=== PATIENT | female | born 1955 | race African-American/Black ===

== ENCOUNTER 2017-01-13 17:00 | Emergency (ER) | payer SELFPAY ==
[~2017-01-13] VITALS: Ht 167.6 cm; Wt 81.6 kg
[~2017-01-13 17:00] MED LIST: AMLO10TA2 PO; CYCL10TA2 PO; GEMF600T3 PO; LISI1TAB7 PO; METF500T4 PO; METO50TA2 PO; OXYC1TAB7 PO; PRED-220 PO
[2017-01-13 17:14] VITALS: BP 178/78
--- NOTE | 2017-01-13 17:42 | PHYS DOC ---
Past Medical History Past Medical History: Diabetes-Type II, Hypertension Past Surgical History: Hysterectomy Additional Past Surgical Histo: Left knee, partial thyroid Additional Information: /2 ppd Alcohol Use: Occasionally Drug Use: None Adult General Chief Complaint Chief Complaint: HIP PAIN HPI HPI Patient is a 61 year old female with history of hypertension, chronic low back pain due to slipped discs, chronic right hip pain, back and sciatica pain, that got worse today. Patient denies any trauma. Denies any loss of bowel/ bladder function. Patient states this is a chronic problem. She states she has been in the ED before and she was given a muscle relaxer that helped at [facility] but does not know the name. She states she has pain pills at home as well as muscle relaxers but they're not helping as much. She would like a muscle relaxer shot. She would also like a refill of her blood pressure medicine metoprolol. She states she has an appointment with her doctor on Friday which is 5 days out. Review of Systems Review of Systems Constitutional: Denies fever or chills [] Eyes: Denies change in visual acuity, redness, or eye pain [] HENT: Denies nasal congestion or sore throat [] Musculoskeletal: low back and right hip and sciatica pain Integument: Denies rash or skin lesions [] Neurologic: Denies headache, focal weakness or sensory changes [] Endocrine: Denies polyuria or polydipsia [] Current Medications Current Medications Current Medications Medications (Trade) Dose Ordered Sig/Shira Start Time Stop Time Status Last Admin Dose Admin Diazepam (Valium) 5 mg 1X ONCE 01/13/17 18:00 01/13/17 18:01 DC Allergies Allergies Allergies Coded Allergies Type Severity Reaction Last Updated Verified lisinopril Allergy Intermediate 07/07/15 Yes codeine Adverse Reaction Intermediate Itching 07/13/15 Yes Physical Exam Physical Exam Constitutional: Well developed, well nourished, no acute distress, non-toxic appearance. [] HENT: Normocephalic, atraumatic, bilateral external ears normal, oropharynx moist, no oral exudates, nose normal. [] Eyes: PERRLA, EOMI, conjunctiva normal, no discharge. [] Skin: Warm, dry, no erythema, no rash. [] Back: Diffuse paraspinal muscle tenderness to the right sciatic joint, no midline lumbar spine tenderness, no CVA tenderness. [] Extremities: No tenderness, no cyanosis, no clubbing, ROM intact, no edema. [] Neurologic: Alert and oriented X 3, normal motor function, normal sensory function, no focal deficits noted. [] Psychologic: Affect normal, judgement normal, mood normal. [] Current Patient Data Vital Signs Vital Signs Date Time Temp Pulse Resp B/P (MAP) Pulse Ox O2 Delivery O2 Flow Rate FiO2 01/13/17 17:14 99.5 108 18 98 Room Air 99.5 EKG EKG [] Radiology/Procedures Radiology/Procedures [] Course & Med Decision Making Course & Med Decision Making Pertinent Labs and Imaging studies reviewed. (See chart for details) Patient with history of chronic back pain, chronic sciatic pain, chronic right hip pain, who presents today with exacerbation of her pain and requesting a muscle relaxer shot. Valium IM was ordered. She will continue taking her pain medicine as previously prescribed by her doctor. She requested a refill of her blood pressure medicine. Prescription for metoprolol was given for 5 days. She is to follow-up with her doctor on Friday of this week. Dragon Disclaimer [place] Disclaimer This electronic medical record was generated, in whole or in part, using a voice recognition dictation system. Departure Departure Impression: Primary Impression: Back pain with sciatica Additional Impressions: Right hip pain Medication refill Disposition: HOME, SELF-CARE Condition: STABLE Referrals: NO PCP (PCP) Follow-up with your doctor in 1-2 weeks Patient Instructions: Back Pain, Adult, Sciatica with Rehab-SportsMed Additional Instructions: You were seen for back pain with sciatica and hip pain. Follow-up with your doctor in the next 7 days. Continue taking the pain medicine and muscle relaxers as previously prescribed by your doctor. Scripts Cyclobenzaprine Hcl (CYCLOBENZAPRINE HCL) 10 Mg Tablet 1 TAB PO TID, #30 TAB Prov: ANNEMARIE NEUMANN APRN 01/13/17 Oxycodone Hcl/Acetaminophen (OXYCODONE-ACETAMINOPHEN 5-325) 1 Each Tablet 1 EACH PO PRN Q6HRS Y for PAIN, #14 TAB 0 Refills Prov: ANNEMARIE NEUMANN APRN 01/13/17 Metoprolol Tartrate (METOPROLOL TARTRATE) 50 Mg Tablet 1 TAB PO BID, #10 TAB 5 Refills Prov: ANNEMARIE NEUMANN APRN 01/13/17 Problem Qualifiers ANNEMARIE NEUMANN APRN Jan 13, 2017 17:42
[2017-01-13] MEDS ORDERED: METO50TA2 PO (17:44)
[2017-01-13] MEDS ORDERED: OXYC1TAB7 PO (18:15)
[2017-01-13] MEDS ORDERED: CYCL10TA2 PO (18:16)
[2017-01-15] MEDS ORDERED: OXYC-327 PO (17:39)
[2017-01-17] MEDS ORDERED: MAGN400T3 PO (16:02)
== END 2017-01-13 18:24 | disposition home or self-care (01) ==
LOC: ER 17:00
DX: Z76.0 Encounter for issue of repeat prescription (principal); M54.41 Lumbago with sciatica, right side; M25.551 Pain in right hip; E11.9 Type 2 diabetes mellitus without complications; I10 Essential (primary) hypertension; F17.200 Nicotine dependence, unspecified, uncomplicated; G89.29 Other chronic pain; Z88.8 Allergy status to other drugs, medicaments and biological substances; Z90.710 Acquired absence of both cervix and uterus; Z88.5 Allergy status to narcotic agent
CPT/HCPCS: 96372; 99283; J3360

== ENCOUNTER 2017-05-08 01:15 | Inpatient (IN) | payer SELFPAY ==
[~2017-05-08] VITALS: Ht 167.6 cm; Wt 84.8 kg
[~2017-05-08 01:15] MED LIST changes: +MAGN400T3 PO; +OXYC-327 PO
[2017-05-08 01:39] LABS: BASO % 1 % (0-3); EOS % 1 % (0-3); HEMATOCRIT 40.8 % (36.0-47.0); HEMOGLOBIN 13.2 g/dL (12.0-15.5); LYMPH # 1.9 x10^3/uL (1.0-4.8); LYMPH % 24 % (24-48); MEAN CORPUSCULAR HEMOGLOBIN 24 pg (25-35); MEAN CORPUSCULAR HGB CONC 32 g/dL (31-37); MEAN CORPUSCULAR VOLUME 73 fL (79-100); MONO % 8 % (0-9); NEUT % 67 % (31-73); PLATELET COUNT 329 x10^3/uL (140-400); WHITE BLOOD COUNT 7.8 x10^3/uL (4.0-11.0)
[2017-05-08 01:48] LABS: PROTHROMBIN TIME PATIENT 12.4 SEC (11.7-14.0)
[2017-05-08 01:50] LABS: CALCIUM 10.1 mg/dL (8.5-10.1); GFR 68.7; POTASSIUM 3.2 mmol/L (3.5-5.1)
[2017-05-08 01:58] LABS: ALBUMIN 3.8 g/dL (3.4-5.0); ALBUMIN/GLOBULIN RATIO 0.9 (1.0-1.7); TOTAL BILIRUBIN 0.9 mg/dL (0.2-1.0); TOTAL PROTEIN 8.1 g/dL (6.4-8.2)
[2017-05-08 02:04] LABS: CREATINE KINASE 96 U/L (26-192)
[2017-05-08 02:11] LABS: CKMB MASS < 0.5 ng/mL (0.0-3.6)
[2017-05-08] MEDS ORDERED: ONDANSETRON PF 4 MG/2 ML VIAL. IV ONE (02:15)
[2017-05-08] MEDS ORDERED: fentaNYL PF VIAL 100 MCG/2 ML VIAL IV ONE ×2 (02:15→03:30)
[2017-05-08] MEDS ORDERED: CONTRAST GIVEN MC PRN (02:30)
--- NOTE | 2017-05-08 02:36 | PHYS DOC ---
Past Medical History Past Medical History: Diabetes-Type II, Hypertension Past Surgical History: Hysterectomy Additional Past Surgical Histo: Left knee, partial thyroid Smoking: Cigarettes Alcohol Use: Occasionally Drug Use: None Adult General Chief Complaint Chief Complaint: CHEST WALL PAIN HPI HPI Patient is a 61 year old female who presents with abdominal pain. She states the pain started tonight around 1800 p.m. The pain is in her epigastric and upper abdomen. SHe has nausea and vomiting x 6 today. No blood in her stool. The pain radiates into her chest. No shortness of air. No travel. no leg pain or swelling. She is followed at the [facility] Review of Systems Review of Systems Constitutional: Denies fever or chills Eyes: Denies change in visual acuity, redness, or eye pain HENT: Denies nasal congestion or sore throat Respiratory: Denies cough or shortness of breath Cardiovascular: lower chest pain GI: POS abdominal pain, POS nausea, POS vomiting, bloody stools or diarrhea : Denies dysuria or hematuria Musculoskeletal: Denies back pain or joint pain Integument: Denies rash or skin lesions All other systems were reviewed and found to be within normal limits, except as documented in this note. Current Medications Current Medications Current Medications Medications (Trade) Dose Ordered Sig/Shira Start Time Stop Time Status Last Admin Dose Admin Famotidine (Pepcid) 20 mg 1X ONCE 05/08/17 03:30 05/08/17 03:31 05/08/17 03:03 20 MG Fentanyl Citrate (Fentanyl 2ml Vial) 50 mcg 1X ONCE 05/08/17 03:30 05/08/17 03:31 05/08/17 03:03 50 MCG Info (Do NOT chart on this entry -- for MONITORING) 1 each PRN DAILY PRN 05/08/17 02:30 05/10/17 02:29 Iohexol (Omnipaque 300 Mg/ml) 75 ml 1X ONCE 05/08/17 03:00 05/08/17 03:01 DC 05/08/17 02:44 75 ML Ondansetron HCl (Zofran) 4 mg 1X ONCE 05/08/17 02:15 05/08/17 02:17 DC 05/08/17 02:03 4 MG Allergies Allergies Allergies Coded Allergies Type Severity Reaction Last Updated Verified lisinopril Allergy Intermediate 07/07/15 Yes codeine Adverse Reaction Intermediate Itching 07/13/15 Yes Physical Exam Physical Exam Constitutional: Well developed, well nourished, no acute distress, non-toxic appearance. [] HENT: Normocephalic, atraumatic, bilateral external ears normal, oropharynx moist, no oral exudates, nose normal. [] Eyes: PERRLA, EOMI, conjunctiva normal, no discharge. [] Neck: Normal range of motion, no tenderness, supple, no stridor. [] Cardiovascular:Heart rate regular rhythm, no murmur [] Lungs & Thorax: Bilateral breath sounds clear to auscultation [] Abdomen: Bowel sounds normal, soft, no tenderness, no masses, no pulsatile masses. [] Skin: Warm, dry, no erythema, no rash. [] Back: No tenderness, no CVA tenderness. [] Extremities: No tenderness, no cyanosis, no clubbing, ROM intact, no edema. [] Neurologic: Alert and oriented X 3, normal motor function, normal sensory function, no focal deficits noted. [] Psychologic: Affect normal, judgement normal, mood normal. [] Current Patient Data Vital Signs Vital Signs Date Time Temp Pulse Resp B/P (MAP) Pulse Ox O2 Delivery O2 Flow Rate FiO2 05/08/17 02:42 76 18 175/85 (115) 97 Nasal Cannula 2.0 05/08/17 01:27 97.7 97.7 Lab Values Laboratory Tests Test 05/08/17 01:30 White Blood Count 7.8 x10^3/uL (4.0-11.0) Red Blood Count 5.60 x10^6/uL (3.50-5.40) H Hemoglobin 13.2 g/dL (12.0-15.5) Hematocrit 40.8 % (36.0-47.0) Mean Corpuscular Volume 73 fL (79-100) L Mean Corpuscular Hemoglobin 24 pg (25-35) L Mean Corpuscular Hemoglobin Concent 32 g/dL (31-37) Red Cell Distribution Width 16.0 % (11.5-14.5) H Platelet Count 329 x10^3/uL (140-400) Neutrophils (%) (Auto) 67 % (31-73) Lymphocytes (%) (Auto) 24 % (24-48) Monocytes (%) (Auto) 8 % (0-9) Eosinophils (%) (Auto) 1 % (0-3) Basophils (%) (Auto) 1 % (0-3) Neutrophils # (Auto) 5.2 x10^3uL (1.8-7.7) Lymphocytes # (Auto) 1.9 x10^3/uL (1.0-4.8) Monocytes # (Auto) 0.6 x10^3/uL (0.0-1.1) Eosinophils # (Auto) 0.1 x10^3/uL (0.0-0.7) Basophils # (Auto) 0.0 x10^3/uL (0.0-0.2) Prothrombin Time 12.4 SEC (11.7-14.0) Prothrombin Time INR 1.0 (0.8-1.1) D-Dimer (Miriam) 1.05 ug/mlFEU (0.00-0.50) H Sodium Level 142 mmol/L (136-145) Potassium Level 3.2 mmol/L (3.5-5.1) L Chloride Level 99 mmol/L (98-107) Carbon Dioxide Level 32 mmol/L (21-32) Anion Gap 11 (6-14) Blood Urea Nitrogen 21 mg/dL (7-20) H Creatinine 1.0 mg/dL (0.6-1.0) Estimated GFR (Cockcroft-Gault) 68.7 BUN/Creatinine Ratio 21 (6-20) H Glucose Level 182 mg/dL (70-99) H Calcium Level 10.1 mg/dL (8.5-10.1) Total Bilirubin 0.9 mg/dL (0.2-1.0) Aspartate Amino Transferase (AST) 320 U/L (15-37) H Alanine Aminotransferase (ALT) 158 U/L (14-59) H Alkaline Phosphatase 181 U/L (46-116) H Creatine Kinase 96 U/L (26-192) Creatine Kinase MB (Mass) < 0.5 ng/mL (0.0-3.6) Creatine Kinase MB Relative Index 0.5 % (0-4) Troponin I Quantitative < 0.017 ng/mL (0.000-0.055) VX-Diw-A-Type Natriuretic Peptide 23 pg/mL (0-124) Total Protein 8.1 g/dL (6.4-8.2) Albumin 3.8 g/dL (3.4-5.0) Albumin/Globulin Ratio 0.9 (1.0-1.7) L Lipase 157 U/L (73-393) Laboratory Tests 05/08/17 01:30 Laboratory Tests 05/08/17 01:30 EKG EKG EKG interpreted by myself at 0124 AM is normal sinus rhythm rate of 77, leftward axis. Nonspecific ST changes. No ST elevation. No change compared to EKG dated June 2015. Radiology/Procedures Radiology/Procedures [facility] [address] [place] [address] IMAGING REPORT Signed PATIENT: CANDY CROUCH ACCOUNT: [id number] : 1955 LOCATION: ER AGE: 61 SEX: F EXAM STATUS: REG ER ORD. PHYSICIAN: HA SMITH MD REASON: R/O PE; RUQ pain w elev LFT PROCEDURE: CT CHEST ABD PELVIS W/CONTRAST INDICATION: Chest and abdomen pain COMPARISON: None. TECHNIQUE: Axial CT images obtained through the chest, abdomen and pelvis with intravenous contrast. Three-dimensional images processed of chest per angiogram protocol.. One or more of the following individualized dose reduction techniques were utilized for this examination: 1. Automated exposure control; 2. Adjustment of the mA and/or kV according to patient size; 3. Use of iterative reconstruction technique. FINDINGS: Chest: Dependent airspace opacities. No evidence of pneumothorax. Mild hernia. Left lobe of thyroid nodules suspected. Calcified lymph nodes in the mediastinum, could be sequela of old granulomatous disease. Motion obscures large portions of ascending thoracic aorta but no definite aneurysm in visualized portions. Degenerative changes of the spine. Pleural thickening or pleural effusions near right upper lung measuring up to about 11 mm in thickness. No central pulmonary embolus but limited peripherally secondary to motion. Some suspected thickening of esophageal wall. Abdomen and pelvis: Moderate atherosclerotic disease of the abdominal aorta. Low-attenuation of liver. No definite peripancreatic edema. There are some calcified granulomas of the spleen. No left-sided hydronephrosis. No right-sided hydronephrosis. Urinary bladder is partially distended. Colonic diverticulosis. No definite periappendiceal inflammation. Small fat-containing umbilical hernia. No dilated loops of bowel to suggest obstruction. Degenerative changes spine. This includes multiple disc protrusions with central canal stenosis. IMPRESSION: No embolus in main, right main or left main pulmonary artery but the peripheral vessels are obscured by patient motion. Mild dependent opacities within the lungs. Most likely causes atelectasis unless there is high clinical concern for infiltrate. No evidence of bowel obstruction or appendicitis. Low attenuation of the liver. Nonspecific but frequently secondary to fatty infiltration. There is some wall thickening of the esophagus with a hiatal hernia. If there are symptoms within the region causes such as esophagitis not excluded. Suspected thyroid nodule. If more complete characterization is desired nonemergent ultrasound could better evaluate. Small right-sided pleural effusion versus pleural thickening near right lung apex. Electronically signed by: Kenyon Wilkinson MD (05/08/2017 3:16 AM) [facility] DICTATED and SIGNED BY: KENYON WILKINSON MD DATE: 05/08/17251 CC: HA SMITH MD; NO PCP ~ Course & Med Decision Making Course & Med Decision Making Evaluated patient upon arrival. IV fluids established. Her pain does appear to be more right upper quadrant. Could be biliary colic. Could be reflux, pancreatitis. However she has risk factors for cardiac disease so we'll proceed with cardiac evaluation as well. Given pain medication and Zofran. We'll check d -dimer. D-dimer was elevated. A CT chest for rule out PE and abdomen pelvis. At 0325 am ; CT results unremarkable (motion limiting study and thyroid nodule noted). At 0330 am: Patient still with abdominal pain RUQ and nausea. Differential diagnosis for chest pain includes but is not limited to: Pericarditis, myocarditis, endocarditis, pneumothorax, pneumonia, aortic dissection, esophageal spasm, esophagitis, peptic ulcer disease, acute coronary syndrome, mediastinitis, Boerhaave syndrome, musculoskeletal chest wall pain, costochondritis, intercostal strain, rib fracture, pulmonary contusion, pneumonitis, pleural effusion, pericardial effusion, pericardial tamponode, and pleurisy. MACE Scoring: History: Highly suspicious (2 points); Moderately suspicious (1 point). Slightly suspicious (0 point). EKG: ST segment depression (2 points). Nonspecific repolarization disturbance ( 1 point). normal (0 point) Age: Greater than 65 (2 points), 65-45 (1 point); less than 45 years old (0 points). Risk factors:> 3 risk factors (2 points), 1-2 risk factors (one point), no risk factors (0 point). Troponin: > 2 times normal (2 points), 1-2 times normal (1 point) normal limits (0 point) Total score: __4____ Score % pts MACE/n MACE Policy 0-3: 32% 1.9% 0.05% Discharge 4-6: 51% 413/3136 13% 1.3% Observation Risk management 7-10: 17% 518/1045 50% 2.8% Observation Treatment, CAGb SOLEDAD score for NSTEMI: Age 65: No=0; Yes=1 3 CAD risk factors: Family history of CAD, hypertension, hypercholesterolemia, diabetes, family history of CAD, or current smoker: No=0; Yes=1 Known CAD (stenosis 50%: No=0; Yes=1 ASA use in past 7 days: No=0; Yes=1 Severe angina ( 2 episodes in 24 hrs): No=0; Yes=[address] changes 0.5m: No=0; Yes=1 Positive cardiac marker: No=0; Yes=1 Score:1 PERC RULE Criteria: Age < than 50 years-NO Heart rate < 100 Oxygen saturation > 95% No hemoptysis No estrogen use No prior DVT or PE No unilateral leg swelling No surgery or trauma requiring hospitalization within the prior 4 weeks PERC rule not satisfied Dragon Disclaimer Dragon Disclaimer This electronic medical record was generated, in whole or in part, using a voice recognition dictation system. Departure Departure Impression: Primary Impression: Abdominal pain Additional Impression: Nausea and vomiting Disposition: 09 ADMITTED INPATIENT Admitting Physician: Jeremias Mejía Condition: CRITICAL Referrals: NO PCP (PCP) Problem Qualifiers Primary Impression: Abdominal pain Abdominal location: right upper quadrant Qualified Codes: R10.11 - Right upper quadrant pain Additional Impression: Nausea and vomiting Vomiting type: unspecified Vomiting Intractability: unspecified Qualified Codes: R11.2 - Nausea with vomiting, unspecified HA SMITH MD May 08, 2017 02:36
[2017-05-08] MEDS ORDERED: IOHEXOL 300 MG/ML 100ML VIAL. IV ONE (03:00)
--- NOTE | 2017-05-08 03:19 | RAD ---
INDICATION: Chest and abdomen pain COMPARISON: None. TECHNIQUE: Axial CT images obtained through the chest, abdomen and pelvis with intravenous contrast. Three-dimensional images processed of chest per angiogram protocol.. One or more of the following individualized dose reduction techniques were utilized for this examination: 1. Automated exposure control; 2. Adjustment of the mA and/or kV according to patient size; 3. Use of iterative reconstruction technique. FINDINGS: Chest: Dependent airspace opacities. No evidence of pneumothorax. Mild hernia. Left lobe of thyroid nodules suspected. Calcified lymph nodes in the mediastinum, could be sequela of old granulomatous disease. Motion obscures large portions of ascending thoracic aorta but no definite aneurysm in visualized portions. Degenerative changes of the spine. Pleural thickening or pleural effusions near right upper lung measuring up to about 11 mm in thickness. No central pulmonary embolus but limited peripherally secondary to motion. Some suspected thickening of esophageal wall. Abdomen and pelvis: Moderate atherosclerotic disease of the abdominal aorta. Low-attenuation of liver. No definite peripancreatic edema. There are some calcified granulomas of the spleen. No left-sided hydronephrosis. No right-sided hydronephrosis. Urinary bladder is partially distended. Colonic diverticulosis. No definite periappendiceal inflammation. Small fat-containing umbilical hernia. No dilated loops of bowel to suggest obstruction. Degenerative changes spine. This includes multiple disc protrusions with central canal stenosis. IMPRESSION: No embolus in main, right main or left main pulmonary artery but the peripheral vessels are obscured by patient motion. Mild dependent opacities within the lungs. Most likely causes atelectasis unless there is high clinical concern for infiltrate. No evidence of bowel obstruction or appendicitis. Low attenuation of the liver. Nonspecific but frequently secondary to fatty infiltration. There is some wall thickening of the esophagus with a hiatal hernia. If there are symptoms within the region causes such as esophagitis not excluded. Suspected thyroid nodule. If more complete characterization is desired nonemergent ultrasound could better evaluate. Small right-sided pleural effusion versus pleural thickening near right lung apex. Electronically signed by: Heraclio Wilkinson MD (05/08/2017 3:16 AM) [facility]
[2017-05-08] MEDS ORDERED: FAMOTIDINE 20 MG/2 ML VIAL IVP ONE (03:30)
[2017-05-08] MEDS ORDERED: MORPHINE SULFATE 4 MG/ML DISP.SYRIN. IV PRN (04:15)
[2017-05-08] MEDS ORDERED: ONDANSETRON PF 4 MG/2 ML VIAL. IV PRN (04:15)
[2017-05-08 04:39] VITALS: BP 139/73
[2017-05-08] MEDS ORDERED: HYDR25TA9 PO (05:12)
[2017-05-08] MEDS ORDERED: POTA20TA4 PO (05:12)
--- NOTE | 2017-05-08 06:43 | EKG ---
[facility] [address] [place] [address] Test Date: 2017-05-08 Test Time: 01:24:13 Pat Name: CANDY CROUCH Department: Room: 576 1 Gender: F Contract Preparer: : 1955 Requested By: WILBER LIMA Order Number: [id number] Reading MD: Bautista Jones MD Measurements Intervals [place] Rate: 77 P: 53 [place]: 156 QRS: -22 QRSD: 84 T: 50 QT: 408 QTc: 464 Interpretive Statements SINUS RHYTHM LEFTWARD AXIS CONSIDER LEFT VENTRICULAR HYPERTROPHY CONSISTENT WITH ANTEROSEPTAL INFARCT PROBABLY OLD Electronically Signed On 05-12-2017 10:39:16 [employer] by Bautista Jones MD
[2017-05-08 07:00] VITALS: BP 128/78
[2017-05-08] MEDS ORDERED: CYCLOBENZAPRINE 10 MG TABLET. PO PRN (10:15)
[2017-05-08] MEDS ORDERED: hydrALAZINE 20 MG/ML VIAL. IVP PRN (10:15)
[2017-05-08] MEDS ORDERED: DEXTROSE 50% 25 GM / 50ML DISP.SYRIN. IV PRN (10:15)
[2017-05-08] MEDS ORDERED: MORPHINE SULFATE 2 MG/ML DISP.SYRIN. IV PRN (10:15)
[2017-05-08] MEDS: GEMFIBROZIL 600 MG TABLET. PO SCH ×2 (10:54→21:35)
[2017-05-08] MEDS: METOPROLOL TART IMMED RELEASE 50 MG TABLET. PO SCH ×2 (10:56→21:36)
[2017-05-08] MEDS: amLODIPine BESYLATE 10 MG TABLET PO SCH (10:57)
[2017-05-08 11:00] VITALS: BP 125/62
[2017-05-08] MEDS ORDERED: PANTOPRAZOLE IV PUSH 40 MG VIAL. IVP SCH (11:00)
[2017-05-08] MEDS: INSULIN ASPART 300 UNITS/3 ML INSULN.PEN SQ SCH ×2 (11:03→16:45)
[2017-05-08] MEDS: NICOTINE 14MG PATCH. TD PRN (11:20)
--- NOTE | 2017-05-08 12:49 | PDOC2 ---
GI CONSULT Reason For Consult: Possible hematemesis, abd pain, n/v HPI: HPI: 61 y/o female admitted through ER. At 2:00 p.m. started feeling bloated. No precipitating events including sick contacts, new medication, travel, bad food. Tried to rest, couldn't get comfortable. Tried having a bowel movement, passed small amount of stool. Tried eating ice chips and drinking some fluids, started feeling lightheaded and vomiting at 10:00 p.m.. Emesis was bilious and red (but didn't eat anything red). In ER, Hgb 13.2 w/ normal plt and INR, D- dimer elevated, BUN 21, Cr 1, bili 0.9, AST 320, ALT 158, Alk Phos 181. CT chest/A/P w/ no PE, lung opacities, probably fatty liver, wall thickening of esophagus w/ hiatal hernia, probable thyroid nodule, and small right pleural effusion. Has tolerated clears today w/o recurrent n/v or bleeding. Abd pain is better. On IV PPI. Had GERD years ago, no longer bothersome because she avoids spicy food. No dysphagia or weight loss. No diarrhea, constipation, hematochezia, melena. No previous EGD or colonoscopy. Takes Advil off and on, not daily. No gallbladder , liver, or pancreas history. PMH: PMH: ND, HTN, HLD, partial hysterectomy, left knee surgery (as a child), partial thyroidectomy for "cyst" (denies cancer) FH: Family History: Cancer (ovarian), DM, Hypertension, Other (father had cirrhosis /alcoholism) Social History: Smoke: <1 pack per day ALCOHOL: occassional Drugs: None ROS: GEN: Denies fevers, chills, sweats HEENT: Denies blurred vision, sore throat CV: Denies chest pain RESP: Denies shortness of air, cough GI: Per HPI : Denies hematuria, dysuria ENDO: Denies weight changes NEURO: Denies confusion, dizziness MSK: Denies weakness, joint pain/swelling SKIN: Denies jaundice, pruritus Vitals: Vitals: Vital Signs Date Time Temp Pulse Resp B/P (MAP) Pulse Ox O2 Delivery O2 Flow Rate FiO2 05/08/17 11:41 16 Room Air 05/08/17 11:00 97.9 64 125/62 (83) 93 97.9 05/08/17 08:00 2.0 Labs: Labs: Laboratory Tests Test 05/08/17 01:30 05/08/17 08:34 05/08/17 11:02 White Blood Count 7.8 x10^3/uL (4.0-11.0) Red Blood Count 5.60 x10^6/uL (3.50-5.40) Hemoglobin 13.2 g/dL (12.0-15.5) Hematocrit 40.8 % (36.0-47.0) Mean Corpuscular Volume 73 fL (79-100) Mean Corpuscular Hemoglobin 24 pg (25-35) Mean Corpuscular Hemoglobin Concent 32 g/dL (31-37) Red Cell Distribution Width 16.0 % (11.5-14.5) Platelet Count 329 x10^3/uL (140-400) Neutrophils (%) (Auto) 67 % (31-73) Lymphocytes (%) (Auto) 24 % (24-48) Monocytes (%) (Auto) 8 % (0-9) Eosinophils (%) (Auto) 1 % (0-3) Basophils (%) (Auto) 1 % (0-3) Neutrophils # (Auto) 5.2 x10^3uL (1.8-7.7) Lymphocytes # (Auto) 1.9 x10^3/uL (1.0-4.8) Monocytes # (Auto) 0.6 x10^3/uL (0.0-1.1) Eosinophils # (Auto) 0.1 x10^3/uL (0.0-0.7) Basophils # (Auto) 0.0 x10^3/uL (0.0-0.2) Prothrombin Time 12.4 SEC (11.7-14.0) Prothromb Time International Ratio 1.0 (0.8-1.1) D-Dimer (Miriam) 1.05 ug/mlFEU (0.00-0.50) Sodium Level 142 mmol/L (136-145) Potassium Level 3.2 mmol/L (3.5-5.1) Chloride Level 99 mmol/L (98-107) Carbon Dioxide Level 32 mmol/L (21-32) Anion Gap 11 (6-14) Blood Urea Nitrogen 21 mg/dL (7-20) Creatinine 1.0 mg/dL (0.6-1.0) Estimated GFR (Cockcroft-Gault) 68.7 BUN/Creatinine Ratio 21 (6-20) Glucose Level 182 mg/dL (70-99) Calcium Level 10.1 mg/dL (8.5-10.1) Total Bilirubin 0.9 mg/dL (0.2-1.0) Aspartate Amino Transf (AST/SGOT) 320 U/L (15-37) Alanine Aminotransferase (ALT/SGPT) 158 U/L (14-59) Alkaline Phosphatase 181 U/L (46-116) Creatine Kinase 96 U/L (26-192) Creatine Kinase MB (Mass) < 0.5 ng/mL (0.0-3.6) Creatine Kinase MB Relative Index 0.5 % (0-4) Troponin I Quantitative < 0.017 ng/mL (0.000-0.055) [id number]-Type Natriuretic Peptide 23 pg/mL (0-124) Total Protein 8.1 g/dL (6.4-8.2) Albumin 3.8 g/dL (3.4-5.0) Albumin/Globulin Ratio 0.9 (1.0-1.7) Lipase 157 U/L (73-393) Glucose (Fingerstick) 130 mg/dL (70-99) 121 mg/dL (70-99) Allergies: Coded Allergies: lisinopril (Verified Allergy, Intermediate, 07/07/15) codeine (Verified Adverse Reaction, Intermediate, Itching, 07/13/15) Medications: Current Medications Medications (Trade) Dose Ordered Sig/Shira Route PRN Reason Start Time Stop Time Status Last Admin Dose Admin Ondansetron HCl (Zofran) 4 mg 1X ONCE IV 05/08/17 02:15 05/08/17 02:17 DC 05/08/17 02:03 Fentanyl Citrate (Fentanyl 2ml Vial) 50 mcg 1X ONCE IV 05/08/17 02:15 05/08/17 02:17 DC 05/08/17 02:03 Iohexol (Omnipaque 300 Mg/ml) 75 ml 1X ONCE IV 05/08/17 03:00 05/08/17 03:01 DC 05/08/17 02:44 Famotidine (Pepcid) 20 mg 1X ONCE IVP 05/08/17 03:30 05/08/17 03:31 DC 05/08/17 03:03 Fentanyl Citrate (Fentanyl 2ml Vial) 50 mcg 1X ONCE IV 05/08/17 03:30 05/08/17 03:31 DC 05/08/17 03:03 Morphine Sulfate 2 mg PRN Q2HR PRN IV SEVERE PAIN 05/08/17 04:15 05/09/17 04:14 05/08/17 11:11 Amlodipine Besylate (Norvasc) 10 mg DAILY PO 05/08/17 11:00 05/08/17 10:57 Gemfibrozil (Lopid) 600 mg BID PO 05/08/17 11:00 05/08/17 10:54 Metoprolol Tartrate (Lopressor) 50 mg BID PO 05/08/17 11:00 05/08/17 10:56 Pantoprazole Sodium (Protonix Vial) 40 mg BID IVP 05/08/17 11:00 05/08/17 10:54 Nicotine (Nicoderm Cq 14mg) 1 patch PRN DAILY PRN TD SMOKING CESSATION 05/08/17 10:30 05/08/17 11:20 Imaging: Imaging: Chest/A/P CT Chest: Dependent airspace opacities. No evidence of pneumothorax. Mild hernia. Left lobe of thyroid nodules suspected. Calcified lymph nodes in the mediastinum, could be sequela of old granulomatous disease. Motion obscures large portions of ascending thoracic aorta but no definite aneurysm in visualized portions. Degenerative changes of the spine. Pleural thickening or pleural effusions near right upper lung measuring up to about 11 mm in thickness. No central pulmonary embolus but limited peripherally secondary to motion. Some suspected thickening of esophageal wall. Abdomen and pelvis: Moderate atherosclerotic disease of the abdominal aorta. Low-attenuation of liver. No definite peripancreatic edema. There are some calcified granulomas of the spleen. No left-sided hydronephrosis. No right-sided hydronephrosis. Urinary bladder is partially distended. Colonic diverticulosis. No definite periappendiceal inflammation. Small fat-containing umbilical hernia. No dilated loops of bowel to suggest obstruction. Degenerative changes spine. This includes multiple disc protrusions with central canal stenosis. IMPRESSION: No embolus in main, right main or left main pulmonary artery but the peripheral vessels are obscured by patient motion. Mild dependent opacities within the lungs. Most likely causes atelectasis unless there is high clinical concern for infiltrate. No evidence of bowel obstruction or appendicitis. Low attenuation of the liver. Nonspecific but frequently secondary to fatty infiltration. There is some wall thickening of the esophagus with a hiatal hernia. If there are symptoms within the region causes such as esophagitis not excluded. Suspected thyroid nodule. If more complete characterization is desired nonemergent ultrasound could better evaluate. Small right-sided pleural effusion versus pleural thickening near right lung apex. PE: GEN: NAD HEENT: Atraumatic, PERRL LUNGS: CTAB HEART: RRR ABD: NABS, S/ND, upper abd tenderness EXTREMITY: No edema SKIN: No rashes, no jaundice NEURO/PSYCH: A & O 3 A/P: A/P: N/v, possible hematemesis, abd pain/bloating -acute onset yesterday -h/o GERD long ago, no longer bothersome/treated -NSAID use, not daily -wall thickening of esophagus and hiatal hernia on CT -normal Hgb, BUN 21 Abnormal LFTs -possible fatty liver on CT CRC screen -no previous colonoscopy Thyroid nodule -per primary -- Check abd US, Hepatitis panel, EBV, CMV. ADAT, change to PO PPI. Outpt EGD and colonoscopy. JOSIE ANGELES May 08, 2017 12:49
[2017-05-08] MEDS: PANTOPRAZOLE 40 MG TABLET.DR. PO SCH (12:55)
--- NOTE | 2017-05-08 12:57 | PDOC1 ---
History and Physical Date of Admission Date of Admission 05/07/17 Identification/Chief Complaint Chief Complaint abd pain, NV Problems: Source Source: Chart review, Patient History of Present Illness History of Present Illness HPI HPI Patient is a 61 year old female who presents with abdominal pain AND NV from yesterday. Pt said never had it before. She ate some burger , denies poor quality of burger tho, then started to have epigastric abd pain in the evening, later has N/V multiple times, said possible bloody vomiting. The abd pain is sharp, 7/10, radiating around left rib cage. BM normal. denies fever, chlls, cough, sob. never had EGD, colonoscopy, takes alleve every other day for back pain. She is followed at the [facility] Past Medical History Cardiovascular: HTN Endocrine: Diabetes Past Surgical History Past Surgical History: Hysterectomy, Other Family History Family History: Family History Unknown Social History Smoke: <1 pack per day ALCOHOL: social Drugs: None Current Problem List Problem List Problems Medical Problems: (1) Abdominal pain Status: Acute (2) Nausea and vomiting Status: Acute Current Medications Current Medications Current Medications Medications (Trade) Dose Ordered Sig/Shira Start Time Stop Time Status Last Admin Dose Admin Acetaminophen (Tylenol) 650 mg PRN Q6HRS PRN 05/08/17 10:15 Amlodipine Besylate (Norvasc) 10 mg DAILY 05/08/17 11:00 05/08/17 10:57 10 MG Cyclobenzaprine HCl (Flexeril) 10 mg PRN TID PRN 05/08/17 10:15 Dextrose (Dextrose 50%-Water Syringe) 12.5 gm PRN Q15MIN PRN 05/08/17 10:15 Docusate Sodium (Colace) 100 mg PRN DAILY PRN 05/08/17 10:15 Famotidine (Pepcid) 20 mg 1X ONCE 05/08/17 03:30 05/08/17 03:31 DC 05/08/17 03:03 20 MG Fentanyl Citrate (Fentanyl 2ml Vial) 50 mcg 1X ONCE 05/08/17 03:30 05/08/17 03:31 DC 05/08/17 03:03 50 MCG Gemfibrozil (Lopid) 600 mg BID 05/08/17 11:00 05/08/17 10:54 600 MG Hydralazine HCl (Apresoline Inj) 10 mg PRN Q4HRS PRN 05/08/17 10:15 Info (Do NOT chart on this entry -- for MONITORING) 1 each PRN DAILY PRN 05/08/17 02:30 05/10/17 02:29 Insulin Aspart (NovoLOG) 0-9 UNITS TIDWMEALS 05/08/17 12:00 Iohexol (Omnipaque 300 Mg/ml) 75 ml 1X ONCE 05/08/17 03:00 05/08/17 03:01 DC 05/08/17 02:44 75 ML Metformin HCl (Glucophage) 500 mg BIDWMEALS 05/10/17 08:00 Metoprolol Tartrate (Lopressor) 50 mg BID 05/08/17 11:00 05/08/17 10:56 50 MG Morphine Sulfate 2 mg PRN Q2HR PRN 05/08/17 10:30 Nicotine (Nicoderm Cq 14mg) 1 patch PRN DAILY PRN 05/08/17 10:30 05/08/17 11:20 1 PATCH Ondansetron HCl (Zofran) 4 mg PRN Q6HRS PRN 05/08/17 10:15 Oxycodone/ Acetaminophen (Percocet 5/325) 1 tab PRN Q6HRS PRN 05/08/17 10:15 Pantoprazole Sodium (Protonix Vial) 40 mg BID 05/08/17 11:00 05/08/17 10:54 40 MG Tramadol HCl (Ultram) 50 mg PRN Q6HRS PRN 05/08/17 10:15 Allergies Allergies Allergies Coded Allergies Type Severity Reaction Last Updated Verified lisinopril Allergy Intermediate 07/07/15 Yes codeine Adverse Reaction Intermediate Itching 07/13/15 Yes ROS Review of System CONSTITUTIONAL: No fever or chills EYES: No recent changes SKIN: No rash or itching CARDIOVASCULAR: No chest pain, syncope, palpitations, or edema RESPIRATORY: No SOB or cough GASTROINTESTINAL: No nausea, vomiting or abdominal pain NEUROLOGICAL: No headaches or weakness ENDOCRINE: No cold or heat intolerance GENITOURINARY: No urgency or frequency of urination MUSCULOSKELETAL: No back pain or joint pain LYMPHATICS: No enlarged lymph nodes PSYCHIATRIC: No anxiety or depression Physical Exam Physical Exam GEN.: No apparent distress. Alert and oriented. HEENT: Head is normocephalic, atraumatic NECK: Supple. LUNGS: Clear to auscultation. HEART: RRR, S1, S2 present. Peripheral pulses intact ABDOMEN: Soft, Positive bowel sounds. epigastric area moderate tenderness. no guarding or rebound. EXTREMITIES: Without any cyanosis. NEUROLOGIC: Normal speech, normal tone PSYCHIATRIC: Normal affect, normal mood. SKIN: No ulcerations Vitals Vitals Vital Signs Date Time Temp Pulse Resp B/P (MAP) Pulse Ox O2 Delivery O2 Flow Rate FiO2 05/08/17 11:41 16 Room Air 05/08/17 11:00 97.9 64 125/62 (83) 93 97.9 05/08/17 08:00 2.0 Labs Labs Laboratory Tests Test 05/08/17 01:30 05/08/17 08:34 05/08/17 11:02 White Blood Count 7.8 x10^3/uL (4.0-11.0) Red Blood Count 5.60 x10^6/uL (3.50-5.40) Hemoglobin 13.2 g/dL (12.0-15.5) Hematocrit 40.8 % (36.0-47.0) Mean Corpuscular Volume 73 fL (79-100) Mean Corpuscular Hemoglobin 24 pg (25-35) Mean Corpuscular Hemoglobin Concent 32 g/dL (31-37) Red Cell Distribution Width 16.0 % (11.5-14.5) Platelet Count 329 x10^3/uL (140-400) Neutrophils (%) (Auto) 67 % (31-73) Lymphocytes (%) (Auto) 24 % (24-48) Monocytes (%) (Auto) 8 % (0-9) Eosinophils (%) (Auto) 1 % (0-3) Basophils (%) (Auto) 1 % (0-3) Neutrophils # (Auto) 5.2 x10^3uL (1.8-7.7) Lymphocytes # (Auto) 1.9 x10^3/uL (1.0-4.8) Monocytes # (Auto) 0.6 x10^3/uL (0.0-1.1) Eosinophils # (Auto) 0.1 x10^3/uL (0.0-0.7) Basophils # (Auto) 0.0 x10^3/uL (0.0-0.2) Prothrombin Time 12.4 SEC (11.7-14.0) Prothromb Time International Ratio 1.0 (0.8-1.1) D-Dimer (Miriam) 1.05 ug/mlFEU (0.00-0.50) Sodium Level 142 mmol/L (136-145) Potassium Level 3.2 mmol/L (3.5-5.1) Chloride Level 99 mmol/L (98-107) Carbon Dioxide Level 32 mmol/L (21-32) Anion Gap 11 (6-14) Blood Urea Nitrogen 21 mg/dL (7-20) Creatinine 1.0 mg/dL (0.6-1.0) Estimated GFR (Cockcroft-Gault) 68.7 BUN/Creatinine Ratio 21 (6-20) Glucose Level 182 mg/dL (70-99) Calcium Level 10.1 mg/dL (8.5-10.1) Total Bilirubin 0.9 mg/dL (0.2-1.0) Aspartate Amino Transf (AST/SGOT) 320 U/L (15-37) Alanine Aminotransferase (ALT/SGPT) 158 U/L (14-59) Alkaline Phosphatase 181 U/L (46-116) Creatine Kinase 96 U/L (26-192) Creatine Kinase MB (Mass) < 0.5 ng/mL (0.0-3.6) Creatine Kinase MB Relative Index 0.5 % (0-4) Troponin I Quantitative < 0.017 ng/mL (0.000-0.055) VO-[id number]-[id number]-Type Natriuretic Peptide 23 pg/mL (0-124) Total Protein 8.1 g/dL (6.4-8.2) Albumin 3.8 g/dL (3.4-5.0) Albumin/Globulin Ratio 0.9 (1.0-1.7) Lipase 157 U/L (73-393) Glucose (Fingerstick) 130 mg/dL (70-99) 121 mg/dL (70-99) Laboratory Tests Test 05/08/17 01:30 05/08/17 08:34 05/08/17 11:02 White Blood Count 7.8 x10^3/uL (4.0-11.0) Red Blood Count 5.60 x10^6/uL (3.50-5.40) Hemoglobin 13.2 g/dL (12.0-15.5) Hematocrit 40.8 % (36.0-47.0) Mean Corpuscular Volume 73 fL (79-100) Mean Corpuscular Hemoglobin 24 pg (25-35) Mean Corpuscular Hemoglobin Concent 32 g/dL (31-37) Red Cell Distribution Width 16.0 % (11.5-14.5) Platelet Count 329 x10^3/uL (140-400) Neutrophils (%) (Auto) 67 % (31-73) Lymphocytes (%) (Auto) 24 % (24-48) Monocytes (%) (Auto) 8 % (0-9) Eosinophils (%) (Auto) 1 % (0-3) Basophils (%) (Auto) 1 % (0-3) Neutrophils # (Auto) 5.2 x10^3uL (1.8-7.7) Lymphocytes # (Auto) 1.9 x10^3/uL (1.0-4.8) Monocytes # (Auto) 0.6 x10^3/uL (0.0-1.1) Eosinophils # (Auto) 0.1 x10^3/uL (0.0-0.7) Basophils # (Auto) 0.0 x10^3/uL (0.0-0.2) Prothrombin Time 12.4 SEC (11.7-14.0) Prothromb Time International Ratio 1.0 (0.8-1.1) D-Dimer (Miriam) 1.05 ug/mlFEU (0.00-0.50) Sodium Level 142 mmol/L (136-145) Potassium Level 3.2 mmol/L (3.5-5.1) Chloride Level 99 mmol/L (98-107) Carbon Dioxide Level 32 mmol/L (21-32) Anion Gap 11 (6-14) Blood Urea Nitrogen 21 mg/dL (7-20) Creatinine 1.0 mg/dL (0.6-1.0) Estimated GFR (Cockcroft-Gault) 68.7 BUN/Creatinine Ratio 21 (6-20) Glucose Level 182 mg/dL (70-99) Calcium Level 10.1 mg/dL (8.5-10.1) Total Bilirubin 0.9 mg/dL (0.2-1.0) Aspartate Amino Transf (AST/SGOT) 320 U/L (15-37) Alanine Aminotransferase (ALT/SGPT) 158 U/L (14-59) Alkaline Phosphatase 181 U/L (46-116) Creatine Kinase 96 U/L (26-192) Creatine Kinase MB (Mass) < 0.5 ng/mL (0.0-3.6) Creatine Kinase MB Relative Index 0.5 % (0-4) Troponin I Quantitative < 0.017 ng/mL (0.000-0.055) GU-Xvy-G-Type Natriuretic Peptide 23 pg/mL (0-124) Total Protein 8.1 g/dL (6.4-8.2) Albumin 3.8 g/dL (3.4-5.0) Albumin/Globulin Ratio 0.9 (1.0-1.7) Lipase 157 U/L (73-393) Glucose (Fingerstick) 130 mg/dL (70-99) 121 mg/dL (70-99) VTE Prophylaxis Ordered VTE Prophylaxis Devices: Yes VTE Pharmacological Prophylaxi: No Assessment/Plan Assessment/Plan abd pain with N/V, 2/2 gastritis or ulcer likely with NSAIDS Taken possible hematemesis dm2 htn tobaccoism hypokalemia elevated transaminatis, ADAIR likely plan; gi consult drug tox check tsh, hepatitis panel, CMV, EBV cont most home meds, SSI clear liquid diet protonix bid pain control, allergic to codeine, but ok to morphine as per pt US abd as per GI WILBER LIMA MD May 08, 2017 12:57
[2017-05-08 15:22] VITALS: BP 130/74
[2017-05-08] MEDS: DOCUSATE SODIUM 100 MG CAPSULE. PO PRN (15:46)
[2017-05-08] MEDS: MORPHINE SULFATE 4 MG/ML DISP.SYRIN. IV PRN (15:47)
[2017-05-08] MEDS: IV NORMAL SALINE 1000ML BAG 1,000 ML IV SCH (15:48)
[2017-05-08 15:52] LABS: BARBITURATES NEG (NEG); BENZODIAZEPINES POS (NEG); CANNABINOIDS NEG (NEG); COCAINE POS (NEG); METHADONE NEG (NEG); OPIATES POS (NEG); PHENCYCLIDINE NEG (NEG)
[2017-05-08 19:00] VITALS: BP 143/67
[2017-05-08] MEDS: oxyCODONE/APAP 5/325 1 TAB TABLET PO PRN (21:36)
[2017-05-08 22:43] VITALS: BP 121/61
[2017-05-09 00:11] LABS: HEP A IGM ABDY Negative (Negative)
[2017-05-09] MEDS: IV NORMAL SALINE 1000ML BAG 1,000 ML IV SCH ×3 (01:31→20:48)
[2017-05-09 02:52] VITALS: BP 98/68
[2017-05-09 04:33] LABS: BASO % 0 % (0-3); EOS % 3 % (0-3); HEMATOCRIT 38.4 % (36.0-47.0); LYMPH # 2.3 x10^3/uL (1.0-4.8); LYMPH % 54 % (24-48); MEAN CORPUSCULAR HEMOGLOBIN 23 pg (25-35); MEAN CORPUSCULAR HGB CONC 31 g/dL (31-37); MEAN CORPUSCULAR VOLUME 74 fL (79-100); MONO % 7 % (0-9); NEUT % 37 % (31-73); PLATELET COUNT 301 x10^3/uL (140-400); RED BLOOD COUNT 5.18 x10^6/uL (3.50-5.40); RED CELL DISTRIBUTION WIDTH 16.6 % (11.5-14.5); WHITE BLOOD COUNT 4.3 x10^3/uL (4.0-11.0)
[2017-05-09 04:46] LABS: CALCIUM 8.9 mg/dL (8.5-10.1); GFR 68.7; POTASSIUM 3.1 mmol/L (3.5-5.1)
[2017-05-09 04:50] LABS: ALBUMIN 3.1 g/dL (3.4-5.0); DIRECT BILIRUBIN 0.2 mg/dL (0.0-0.2); TOTAL BILIRUBIN 0.8 mg/dL (0.2-1.0); TOTAL PROTEIN 7.2 g/dL (6.4-8.2)
[2017-05-09 06:43] VITALS: BP 97/58
[2017-05-09] MEDS: PANTOPRAZOLE 40 MG TABLET.DR. PO SCH ×2 (07:52→16:57)
[2017-05-09] MEDS: INSULIN ASPART 300 UNITS/3 ML INSULN.PEN SQ SCH ×3 (07:55→16:47)
--- NOTE | 2017-05-09 08:37 | RAD ---
Right upper quadrant ultrasound 05/08/2017 Indication: Abdominal pain. Chest pain. Vomiting. Comparison study: None. Technique: Ultrasound evaluation of the right upper quadrant was performed. Static images are submitted to PACS. Findings: Partially visualized portions of the pancreatic head are grossly unremarkable. The liver is mildly hyperechoic diffusely suggesting some degree of hepatic steatosis. No focal hepatic lesion is identified. Portal venous flows in the normal direction. The liver is enlarged measuring 22 cm longitudinally. The right kidney is normal in appearance measuring 11.2 cm in length. No hydronephrosis, nephrolithiasis, or focal renal lesion is seen on the right. Was likely a combination of sludge and small stones is seen within the dependent portion of the gallbladder. The gallbladder wall is mildly thickened measuring between 3 and 4 mm. Common bile duct measures up to 7 mm in diameter which is mildly dilated. Impression: 1. Small stones and sludge within the gallbladder lumen with mild gallbladder wall thickening. Acute calculus cholecystitis cannot be excluded. Correlate with clinical findings. 2. Mildly dilated common bile duct to 7 mm. Choledocholithiasis is not excluded. Correlate with serum bilirubin and consider hepatobiliary scan, versus ERCP/MRCP as clinically indicated. 3. Mild hepatomegaly. Probable hepatic steatosis
[2017-05-09] MEDS: METOPROLOL TART IMMED RELEASE 50 MG TABLET. PO SCH ×3 (09:00→20:47)
[2017-05-09] MEDS ORDERED: POTASSIUM CHLORIDE 20 MEQ TABLET.ER. PO ONE (10:00)
[2017-05-09] MEDS: amLODIPine BESYLATE 10 MG TABLET PO SCH (10:05)
[2017-05-09] MEDS: GEMFIBROZIL 600 MG TABLET. PO SCH ×2 (10:08→20:47)
[2017-05-09] MEDS: traMADol 50 MG TABLET PO PRN (10:41)
[2017-05-09] MEDS ORDERED: amLODIPine BESYLATE 5 MG TABLET PO ONE (11:00)
[2017-05-09 11:04] VITALS: BP 143/80
--- NOTE | 2017-05-09 11:36 | PDOC2 ---
ALEXIA HALL OUTCOMES ANALYST 05/09/17 1136: CONSULT Date of Consult Date of Consult DATE: 05/09/17 TIME: 11:28 Reason for Consult Reason for Consult: cholelithiasis Referring Physician Referring Physician: Dr Mejía Identification/Chief Complaint Chief Complaint abdominal pain Problems: Source Source: Chart review, Patient History of Present Illness Reason for Visit: Acute onset of diffuse upper abdominal pain Friday after having a cheeseburger. She proceeded to have emesis and noticed blood. That prompted her coming for evaluation. No similar symptoms in past Past Medical History Cardiovascular: HTN Endocrine: Diabetes Past Surgical History Past Surgical History: Hysterectomy, Other Family History Family History: Family History Unknown Social History <1 pack per day ALCOHOL: social Drugs: None Current Problem List Problem List Problems Medical Problems: (1) Abdominal pain Status: Acute (2) Nausea and vomiting Status: Acute Current Medications Current Medications Current Medications Ondansetron HCl (Zofran) 4 mg 1X ONCE IV Last administered on 05/08/17 02:03 ; Start 05/08/17 at 02:15; Stop 05/08/17 at 02:17; Status DC Fentanyl Citrate (Fentanyl 2ml Vial) 50 mcg 1X ONCE IV Last administered on 02:03; Start 05/08/17 at 02:15; Stop 05/08/17 at 02:17; Status DC Iohexol (Omnipaque 300 Mg/ml) 75 ml 1X ONCE IV Last administered on 05/08/17 02:44; Start 05/08/17 at 03:00; Stop 05/08/17 at 03:01; Status DC Info (Do NOT chart on this entry -- for MONITORING) 1 each PRN DAILY PRN MC SEE COMMENTS; Start 05/08/17 at 02:30; Stop 05/10/17 at 02:29 Famotidine (Pepcid) 20 mg 1X ONCE IVP Last administered on 05/08/17 03:03; Start 05/08/17 at 03:30; Stop 05/08/17 at 03:31; Status DC Fentanyl Citrate (Fentanyl 2ml Vial) 50 mcg 1X ONCE IV Last administered on 03:03; Start 05/08/17 at 03:30; Stop 05/08/17 at 03:31; Status DC Ondansetron HCl (Zofran) 4 mg PRN Q8HRS PRN IV NAUSEA/VOMITING; Start 05/08/17 at 04:15; Stop 05/08/17 at 15:43; Status DC Morphine Sulfate 2 mg PRN Q2HR PRN IV SEVERE PAIN Last administered on 11:11; Start 05/08/17 at 04:15; Stop 05/08/17 at 15:43; Status DC Amlodipine Besylate (Norvasc) 10 mg DAILY PO Last administered on 05/08/17 10: 57; Start 05/08/17 at 11:00; Stop 05/09/17 at 10:23; Status DC Cyclobenzaprine HCl (Flexeril) 10 mg PRN TID PRN PO MUSCLE SPASMS; Start at 10:15 Gemfibrozil (Lopid) 600 mg BID PO Last administered on 05/09/17 10:08; Start 05/08/17 at 11:00 Metformin HCl (Glucophage) 500 mg BIDWMEALS PO ; Start 05/10/17 at 08:00 Metoprolol Tartrate (Lopressor) 50 mg BID PO Last administered on 05/08/17 21: 36; Start 05/08/17 at 11:00 Oxycodone/ Acetaminophen (Percocet 5/325) 1 tab PRN Q6HRS PRN PO PAIN Last administered on 05/08/17 21:36; Start 05/08/17 at 10:15 Acetaminophen (Tylenol) 650 mg PRN Q6HRS PRN PO FEVER; Start 05/08/17 at 10:15 Ondansetron HCl (Zofran) 4 mg PRN Q6HRS PRN IV NAUSEA/VOMITING; Start 05/08/17 at 10:15 Morphine Sulfate 2 mg PRN Q2HR PRN IV PAIN; Start 05/08/17 at 10:15; Stop 05/08 at 10:19; Status DC Tramadol HCl (Ultram) 50 mg PRN Q6HRS PRN PO PAIN Last administered on 10:41; Start 05/08/17 at 10:15 Hydralazine HCl (Apresoline Inj) 10 mg PRN Q4HRS PRN IVP ELEVATED BP, SEE COMMENTS; Start 05/08/17 at 10:15 Docusate Sodium (Colace) 100 mg PRN DAILY PRN PO CONSTIPATION Last administered on 05/08/17 15:46; Start 05/08/17 at 10:15 Insulin Aspart (NovoLOG) 0-9 UNITS TIDWMEALS SQ ; Start 05/08/17 at 12:00 Dextrose (Dextrose 50%-Water Syringe) 12.5 gm PRN Q15MIN PRN IV SEE COMMENTS; Start 05/08/17 at 10:15 Pantoprazole Sodium (Protonix Vial) 40 mg BID IVP Last administered on 10:54; Start 05/08/17 at 11:00; Stop 05/08/17 at 12:48; Status DC Morphine Sulfate 2 mg PRN Q2HR PRN IV PAIN Last administered on 05/08/17 15:47 ; Start 05/08/17 at 10:30 Nicotine (Nicoderm Cq 14mg) 1 patch PRN DAILY PRN TD SMOKING CESSATION Last administered on 05/08/17 11:20; Start 05/08/17 at 10:30 Pantoprazole Sodium (Protonix) 40 mg BIDAC PO Last administered on 05/09/17 07:52; Start 05/08/17 at 16:30 Sodium Chloride 1,000 ml @ 100 mls/hr Q10H IV Last administered on 05/09/17 01:31; Start 05/08/17 at 15:45 Potassium Chloride (Klor-Con) 40 meq 1X ONCE PO Last administered on 10:10; Start 05/09/17 at 10:00; Stop 05/09/17 at 10:01; Status DC Amlodipine Besylate (Norvasc) 5 mg DAILY PO ; Start 05/10/17 at 09:00 Amlodipine Besylate (Norvasc) 5 mg 1X ONCE PO Last administered on 05/09/17 10:42; Start 05/09/17 at 11:00; Stop 05/09/17 at 11:01; Status DC Active Scripts Active Oxycodone-Acetaminophen 5-325 (Oxycodone Hcl/Acetaminophen) 1 Each Tablet 1 Each PO PRN Q6HRS PRN Oxycodone-Acetaminophen 5-325 (Oxycodone Hcl/Acetaminophen) 1 Each Tablet 1 Tab PO PRN Q4HRS PRN Reported Klor-Con M20 (Potassium Chloride) 20 Meq Tab.er.prt 1 Tab PO DAILY Hydrochlorothiazide Tablet (Hydrochlorothiazide) 25 Mg Tablet 25 Mg PO DAILY Percocet 7.5-325 Mg Tablet (Oxycodone/Acetaminophen) 1 Each Tablet 1 Tab PO PRN Q4HRS PRN Amlodipine Besylate 10 Mg Tablet 10 Mg PO DAILY Cyclobenzaprine Hcl 10 Mg Tablet 10 Mg PO TID PRN Metoprolol Tartrate 50 Mg Tablet 1 Tab PO BID Gemfibrozil 600 Mg Tablet 600 Mg PO BID Metformin Hcl 500 Mg Tablet 1 Tab PO BID Allergies Allergies: Coded Allergies: lisinopril (Verified Allergy, Intermediate, 07/07/15) codeine (Verified Adverse Reaction, Intermediate, Itching, 07/13/15) ROS General: No: Chills, Other (fevers) PSYCHOLOGICAL ROS: No: Anxiety, Depression Eyes: No Blurry vision, No Double vision Hematological and Lymphatic: No: Bleeding Problems, Blood Clots Respiratory: No: Cough, Shortness of breath Cardiovascular: No Chest Pain, No Palpitations Gastrointestinal: Yes Other (see hpi) Genitourinary: No Dysuria, No Hematuria Musculoskeletal: No Joint Pain, No Muscle Pain Neurological: No Confusion, No Numbness/Tingling Skin: No Pruritus, No Rash Physical Exam General: Alert, Oriented X3, Cooperative, No acute distress HEENT: PERRLA, Mucous membr. moist/pink Lungs: Clear to auscultation, Normal air movement Heart: Regular rate, Normal S1, Normal S2, No murmurs Abdomen: Soft, Other (RUQ TTP) Extremities: No clubbing, No cyanosis Skin: No rashes, No breakdown Neuro: Normal speech, Sensation intact Psych/Mental Status: Mental status NL, Mood NL MUSCULOSKELETAL: No deformity, No swelling Vitals VITALS Vital Signs Date Time Temp Pulse Resp B/P (MAP) Pulse Ox O2 Delivery O2 Flow Rate FiO2 05/09/17 11:04 97.7 56 16 143/80 (101) 98 Room Air 97.7 05/09/17 10:41 2.0 Labs Labs Laboratory Tests Test 05/08/17 01:30 05/08/17 08:34 05/08/17 11:02 05/08/17 13:05 White Blood Count 7.8 x10^3/uL (4.0-11.0) Red Blood Count 5.60 x10^6/uL (3.50-5.40) Hemoglobin 13.2 g/dL (12.0-15.5) Hematocrit 40.8 % (36.0-47.0) Mean Corpuscular Volume 73 fL (79-100) Mean Corpuscular Hemoglobin 24 pg (25-35) Mean Corpuscular Hemoglobin Concent 32 g/dL (31-37) Red Cell Distribution Width 16.0 % (11.5-14.5) Platelet Count 329 x10^3/uL (140-400) Neutrophils (%) (Auto) 67 % (31-73) Lymphocytes (%) (Auto) 24 % (24-48) Monocytes (%) (Auto) 8 % (0-9) Eosinophils (%) (Auto) 1 % (0-3) Basophils (%) (Auto) 1 % (0-3) Neutrophils # (Auto) 5.2 x10^3uL (1.8-7.7) Lymphocytes # (Auto) 1.9 x10^3/uL (1.0-4.8) Monocytes # (Auto) 0.6 x10^3/uL (0.0-1.1) Eosinophils # (Auto) 0.1 x10^3/uL (0.0-0.7) Basophils # (Auto) 0.0 x10^3/uL (0.0-0.2) Prothrombin Time 12.4 SEC (11.7-14.0) Prothromb Time International Ratio 1.0 (0.8-1.1) D-Dimer (Miriam) 1.05 ug/mlFEU (0.00-0.50) Sodium Level 142 mmol/L (136-145) Potassium Level 3.2 mmol/L (3.5-5.1) Chloride Level 99 mmol/L (98-107) Carbon Dioxide Level 32 mmol/L (21-32) Anion Gap 11 (6-14) Blood Urea Nitrogen 21 mg/dL (7-20) Creatinine 1.0 mg/dL (0.6-1.0) Estimated GFR (Cockcroft-Gault) 68.7 BUN/Creatinine Ratio 21 (6-20) Glucose Level 182 mg/dL (70-99) Calcium Level 10.1 mg/dL (8.5-10.1) Total Bilirubin 0.9 mg/dL (0.2-1.0) Aspartate Amino Transf (AST/SGOT) 320 U/L (15-37) Alanine Aminotransferase (ALT/SGPT) 158 U/L (14-59) Alkaline Phosphatase 181 U/L (46-116) Creatine Kinase 96 U/L (26-192) Creatine Kinase MB (Mass) < 0.5 ng/mL (0.0-3.6) Creatine Kinase MB Relative Index 0.5 % (0-4) Troponin I Quantitative < 0.017 ng/mL (0.000-0.055) SA-Idl-G-Type Natriuretic Peptide 23 pg/mL (0-124) Total Protein 8.1 g/dL (6.4-8.2) Albumin 3.8 g/dL (3.4-5.0) Albumin/Globulin Ratio 0.9 (1.0-1.7) Lipase 157 U/L (73-393) Glucose (Fingerstick) 130 mg/dL (70-99) 121 mg/dL (70-99) Hepatitis A IgM Antibody Negative (Negative) Hepatitis B Surface Antigen Negative (Negative) Hepatitis B Core IgM Antibody Negative (Negative) Hepatitis C Antibody 0.1 s/co ratio (0.0-0.9) Test 05/08/17 15:00 05/08/17 16:12 05/08/17 19:09 05/09/17 03:45 Urine Opiates Screen Pos (NEG) Urine Methadone Screen Neg (NEG) Urine Barbiturates Neg (NEG) Urine Phencyclidine Screen Neg (NEG) Urine Amphetamine/Methamphetamine Neg (NEG) Urine Benzodiazepines Screen Pos (NEG) Urine Cocaine Screen Pos (NEG) Urine Cannabinoids Screen Neg (NEG) Urine Ethyl Alcohol Neg (NEG) Glucose (Fingerstick) 107 mg/dL (70-99) 114 mg/dL (70-99) White Blood Count 4.3 x10^3/uL (4.0-11.0) Red Blood Count 5.18 x10^6/uL (3.50-5.40) Hemoglobin 12.0 g/dL (12.0-15.5) Hematocrit 38.4 % (36.0-47.0) Mean Corpuscular Volume 74 fL (79-100) Mean Corpuscular Hemoglobin 23 pg (25-35) Mean Corpuscular Hemoglobin Concent 31 g/dL (31-37) Red Cell Distribution Width 16.6 % (11.5-14.5) Platelet Count 301 x10^3/uL (140-400) Neutrophils (%) (Auto) 37 % (31-73) Lymphocytes (%) (Auto) 54 % (24-48) Monocytes (%) (Auto) 7 % (0-9) Eosinophils (%) (Auto) 3 % (0-3) Basophils (%) (Auto) 0 % (0-3) Neutrophils # (Auto) 1.6 x10^3uL (1.8-7.7) Lymphocytes # (Auto) 2.3 x10^3/uL (1.0-4.8) Monocytes # (Auto) 0.3 x10^3/uL (0.0-1.1) Eosinophils # (Auto) 0.1 x10^3/uL (0.0-0.7) Basophils # (Auto) 0.0 x10^3/uL (0.0-0.2) Sodium Level 142 mmol/L (136-145) Potassium Level 3.1 mmol/L (3.5-5.1) Chloride Level 103 mmol/L (98-107) Carbon Dioxide Level 32 mmol/L (21-32) Anion Gap 7 (6-14) Blood Urea Nitrogen 15 mg/dL (7-20) Creatinine 1.0 mg/dL (0.6-1.0) Estimated GFR (Cockcroft-Gault) 68.7 Glucose Level 117 mg/dL (70-99) Calcium Level 8.9 mg/dL (8.5-10.1) Total Bilirubin 0.8 mg/dL (0.2-1.0) Direct Bilirubin 0.2 mg/dL (0.0-0.2) Aspartate Amino Transf (AST/SGOT) 286 U/L (15-37) Alanine Aminotransferase (ALT/SGPT) 337 U/L (14-59) Alkaline Phosphatase 180 U/L (46-116) Total Protein 7.2 g/dL (6.4-8.2) Albumin 3.1 g/dL (3.4-5.0) Thyroid Stimulating Hormone (TSH) 3.653 uIU/mL (0.358-3.74) Test 05/09/17 07:55 Glucose (Fingerstick) 108 mg/dL (70-99) Laboratory Tests Test 05/08/17 13:05 05/08/17 15:00 05/08/17 16:12 05/08/17 19:09 Hepatitis A IgM Antibody Negative (Negative) Hepatitis B Surface Antigen Negative (Negative) Hepatitis B Core IgM Antibody Negative (Negative) Hepatitis C Antibody 0.1 s/co ratio (0.0-0.9) Urine Opiates Screen Pos (NEG) Urine Methadone Screen Neg (NEG) Urine Barbiturates Neg (NEG) Urine Phencyclidine Screen Neg (NEG) Urine Amphetamine/Methamphetamine Neg (NEG) Urine Benzodiazepines Screen Pos (NEG) Urine Cocaine Screen Pos (NEG) Urine Cannabinoids Screen Neg (NEG) Urine Ethyl Alcohol Neg (NEG) Glucose (Fingerstick) 107 mg/dL (70-99) 114 mg/dL (70-99) Test 05/09/17 03:45 05/09/17 07:55 White Blood Count 4.3 x10^3/uL (4.0-11.0) Red Blood Count 5.18 x10^6/uL (3.50-5.40) Hemoglobin 12.0 g/dL (12.0-15.5) Hematocrit 38.4 % (36.0-47.0) Mean Corpuscular Volume 74 fL (79-100) Mean Corpuscular Hemoglobin 23 pg (25-35) Mean Corpuscular Hemoglobin Concent 31 g/dL (31-37) Red Cell Distribution Width 16.6 % (11.5-14.5) Platelet Count 301 x10^3/uL (140-400) Neutrophils (%) (Auto) 37 % (31-73) Lymphocytes (%) (Auto) 54 % (24-48) Monocytes (%) (Auto) 7 % (0-9) Eosinophils (%) (Auto) 3 % (0-3) Basophils (%) (Auto) 0 % (0-3) Neutrophils # (Auto) 1.6 x10^3uL (1.8-7.7) Lymphocytes # (Auto) 2.3 x10^3/uL (1.0-4.8) Monocytes # (Auto) 0.3 x10^3/uL (0.0-1.1) Eosinophils # (Auto) 0.1 x10^3/uL (0.0-0.7) Basophils # (Auto) 0.0 x10^3/uL (0.0-0.2) Sodium Level 142 mmol/L (136-145) Potassium Level 3.1 mmol/L (3.5-5.1) Chloride Level 103 mmol/L (98-107) Carbon Dioxide Level 32 mmol/L (21-32) Anion Gap 7 (6-14) Blood Urea Nitrogen 15 mg/dL (7-20) Creatinine 1.0 mg/dL (0.6-1.0) Estimated GFR (Cockcroft-Gault) 68.7 Glucose Level 117 mg/dL (70-99) Calcium Level 8.9 mg/dL (8.5-10.1) Total Bilirubin 0.8 mg/dL (0.2-1.0) Direct Bilirubin 0.2 mg/dL (0.0-0.2) Aspartate Amino Transf (AST/SGOT) 286 U/L (15-37) Alanine Aminotransferase (ALT/SGPT) 337 U/L (14-59) Alkaline Phosphatase 180 U/L (46-116) Total Protein 7.2 g/dL (6.4-8.2) Albumin 3.1 g/dL (3.4-5.0) Thyroid Stimulating Hormone (TSH) 3.653 uIU/mL (0.358-3.74) Glucose (Fingerstick) 108 mg/dL (70-99) Assessment/Plan Assessment/Plan cholelithiasis DM, HTN obesity BMI 32 MRCP today, will need lap radha at some point NIKO HEMPHILL MD 05/09/17 1323: CONSULT Allergies Allergies: Coded Allergies: lisinopril (Verified Allergy, Intermediate, 07/07/15) codeine (Verified Adverse Reaction, Intermediate, Itching, 07/13/15) Assessment/Plan Assessment/Plan Pt seen and examined. Agree with Ms. Hall's note Pt with c/o RUQ pain TTP RUQ agree with GI w/u and MRCP LFts elevated, but not bili will possibly need liver biopsy at time of lap radha Thanks for consult! ALEXIA HALL APRN May 09, 2017 11:36 NIKO HEMPHILL MD May 09, 2017 13:23
--- NOTE | 2017-05-09 12:02 | PDOC ---
Objective: Objective: In shower. Per RN, upper abd pain after eating. MRCP apparently rescheduled for tomorrow. Vital Signs: Vital Signs Date Time Temp Pulse Resp B/P (MAP) Pulse Ox O2 Delivery O2 Flow Rate FiO2 05/09/17 11:43 98 Nasal Cannula 2.0 05/09/17 11:04 97.7 56 16 143/80 (101) 97.7 Labs: Laboratory Tests Test 05/08/17 13:05 05/08/17 15:00 05/08/17 16:12 05/08/17 19:09 Cytomegalovirus IgG Antibody Pending Cytomegalovirus IgM Antibody Pending Lashawn-Santos Virus Capsid Ag IgG Ab Pending Lashawn-Santos Virus Capsid Ag IgM Ab Pending Lashawn-Santos Early Antigen IgG Ab Pending Lashawn-Santos Nuc Assoc Ag IgG Index Pending Hepatitis A IgM Antibody Negative Hepatitis B Surface Antigen Negative Hepatitis B Core IgM Antibody Negative Hepatitis C Antibody 0.1 s/co ratio Urine Opiates Screen Pos Urine Methadone Screen Neg Urine Barbiturates Neg Urine Phencyclidine Screen Neg Urine Amphetamine/Methamphetamine Neg Urine Benzodiazepines Screen Pos Urine Cocaine Screen Pos Urine Cannabinoids Screen Neg Urine Ethyl Alcohol Neg Glucose (Fingerstick) 107 mg/dL 114 mg/dL Test 05/09/17 03:45 05/09/17 07:55 White Blood Count 4.3 x10^3/uL Red Blood Count 5.18 x10^6/uL Hemoglobin 12.0 g/dL Hematocrit 38.4 % Mean Corpuscular Volume 74 fL Mean Corpuscular Hemoglobin 23 pg Mean Corpuscular Hemoglobin Concent 31 g/dL Red Cell Distribution Width 16.6 % Platelet Count 301 x10^3/uL Neutrophils (%) (Auto) 37 % Lymphocytes (%) (Auto) 54 % Monocytes (%) (Auto) 7 % Eosinophils (%) (Auto) 3 % Basophils (%) (Auto) 0 % Neutrophils # (Auto) 1.6 x10^3uL Lymphocytes # (Auto) 2.3 x10^3/uL Monocytes # (Auto) 0.3 x10^3/uL Eosinophils # (Auto) 0.1 x10^3/uL Basophils # (Auto) 0.0 x10^3/uL Sodium Level 142 mmol/L Potassium Level 3.1 mmol/L Chloride Level 103 mmol/L Carbon Dioxide Level 32 mmol/L Anion Gap 7 Blood Urea Nitrogen 15 mg/dL Creatinine 1.0 mg/dL Estimated GFR (Cockcroft-Gault) 68.7 Glucose Level 117 mg/dL Calcium Level 8.9 mg/dL Total Bilirubin 0.8 mg/dL Direct Bilirubin 0.2 mg/dL Aspartate Amino Transf (AST/SGOT) 286 U/L Alanine Aminotransferase (ALT/SGPT) 337 U/L Alkaline Phosphatase 180 U/L Total Protein 7.2 g/dL Albumin 3.1 g/dL Thyroid Stimulating Hormone (TSH) 3.653 uIU/mL Glucose (Fingerstick) 108 mg/dL Imaging: Abd US Impression: 1. Small stones and sludge within the gallbladder lumen with mild gallbladder wall thickening. Acute calculus cholecystitis cannot be excluded. Correlate with clinical findings. 2. Mildly dilated common bile duct to 7 mm. Choledocholithiasis is not excluded. Correlate with serum bilirubin and consider hepatobiliary scan, versus ERCP/MRCP as clinically indicated. 3. Mild hepatomegaly. Probable hepatic steatosis. PE: no exam A/P: Cholelithiasis, sludge Upper abd pain, n/v Abnormal LFTs - Hepatitis panel neg Fatty liver Esophageal wall thickening and hiatal hernia on CT, h/o GERD years ago Substance abuse -- MRCP. Surgery following for eventual cholecystectomy. Outpt EGD and colonoscopy. Continue PPI. JOSIE ANGELES May 09, 2017 12:02
[2017-05-09] MEDS: ONDANSETRON PF 4 MG/2 ML VIAL. IV PRN (12:21)
--- NOTE | 2017-05-09 13:31 | PDOC ---
PROGRESS NOTES Chief Complaint Chief Complaint abd pain with N/V, 2/2 gastritis or ulcer likely with NSAIDS Taken possible hematemesis dm2 htn tobaccoism hypokalemia elevated transaminatis, ADAIR? cholelithiasis in [place] drug abuse with cocaine plan; gi consulted , sx consult check tsh, hepatitis panel, CMV, EBV cont most home meds, SSI, decrease amlodipine to 5mg daily, hold hctz clear liquid diet protonix bid for now pain control, allergic to codeine, but ok to morphine as per pt US showed gallstone, with CBD 7mm, MRCP today History of Present Illness History of Present Illness ROS: no fever, chills, sob or chest pain no N/V cont having RUQ, LUP and epigastric abd pain, slightly better LFT still high, bili ok no diarrhea BP low one time ,feeling dizzy Vitals Vitals Vital Signs Date Time Temp Pulse Resp B/P (MAP) Pulse Ox O2 Delivery O2 Flow Rate FiO2 05/09/17 11:43 98 Nasal Cannula 2.0 05/09/17 11:04 97.7 56 16 143/80 (101) 97.7 Physical Exam General: Alert, Oriented X3, Cooperative, No acute distress Heart: Regular rate, Normal S1, Normal S2, No murmurs Lungs: Clear Abdomen: Normal bowel sounds, Soft, Other (RUQ ,EPIGASTRIC AND LUQ tenderness) Extremities: No clubbing, No cyanosis Skin: No rashes, No breakdown Labs LABS Laboratory Tests Test 05/08/17 15:00 05/08/17 16:12 05/08/17 19:09 05/09/17 03:45 Urine Opiates Screen Pos (NEG) Urine Methadone Screen Neg (NEG) Urine Barbiturates Neg (NEG) Urine Phencyclidine Screen Neg (NEG) Urine Amphetamine/Methamphetamine Neg (NEG) Urine Benzodiazepines Screen Pos (NEG) Urine Cocaine Screen Pos (NEG) Urine Cannabinoids Screen Neg (NEG) Urine Ethyl Alcohol Neg (NEG) Glucose (Fingerstick) 107 mg/dL (70-99) 114 mg/dL (70-99) White Blood Count 4.3 x10^3/uL (4.0-11.0) Red Blood Count 5.18 x10^6/uL (3.50-5.40) Hemoglobin 12.0 g/dL (12.0-15.5) Hematocrit 38.4 % (36.0-47.0) Mean Corpuscular Volume 74 fL (79-100) Mean Corpuscular Hemoglobin 23 pg (25-35) Mean Corpuscular Hemoglobin Concent 31 g/dL (31-37) Red Cell Distribution Width 16.6 % (11.5-14.5) Platelet Count 301 x10^3/uL (140-400) Neutrophils (%) (Auto) 37 % (31-73) Lymphocytes (%) (Auto) 54 % (24-48) Monocytes (%) (Auto) 7 % (0-9) Eosinophils (%) (Auto) 3 % (0-3) Basophils (%) (Auto) 0 % (0-3) Neutrophils # (Auto) 1.6 x10^3uL (1.8-7.7) Lymphocytes # (Auto) 2.3 x10^3/uL (1.0-4.8) Monocytes # (Auto) 0.3 x10^3/uL (0.0-1.1) Eosinophils # (Auto) 0.1 x10^3/uL (0.0-0.7) Basophils # (Auto) 0.0 x10^3/uL (0.0-0.2) Sodium Level 142 mmol/L (136-145) Potassium Level 3.1 mmol/L (3.5-5.1) Chloride Level 103 mmol/L (98-107) Carbon Dioxide Level 32 mmol/L (21-32) Anion Gap 7 (6-14) Blood Urea Nitrogen 15 mg/dL (7-20) Creatinine 1.0 mg/dL (0.6-1.0) Estimated GFR (Cockcroft-Gault) 68.7 Glucose Level 117 mg/dL (70-99) Calcium Level 8.9 mg/dL (8.5-10.1) Total Bilirubin 0.8 mg/dL (0.2-1.0) Direct Bilirubin 0.2 mg/dL (0.0-0.2) Aspartate Amino Transf (AST/SGOT) 286 U/L (15-37) Alanine Aminotransferase (ALT/SGPT) 337 U/L (14-59) Alkaline Phosphatase 180 U/L (46-116) Total Protein 7.2 g/dL (6.4-8.2) Albumin 3.1 g/dL (3.4-5.0) Thyroid Stimulating Hormone (TSH) 3.653 uIU/mL (0.358-3.74) Test 05/09/17 07:55 05/09/17 11:54 Glucose (Fingerstick) 108 mg/dL (70-99) 107 mg/dL (70-99) Assessment and Plan Assessmemt and Plan Problems Medical Problems: (1) Abdominal pain Status: Acute (2) Nausea and vomiting Status: Acute Problems: Comment Review of Relevant I have reviewed the following items jewel (where applicable) has been applied. Labs Laboratory Tests Test 05/08/17 01:30 05/08/17 08:34 05/08/17 11:02 05/08/17 13:05 White Blood Count 7.8 x10^3/uL (4.0-11.0) Red Blood Count 5.60 x10^6/uL (3.50-5.40) Hemoglobin 13.2 g/dL (12.0-15.5) Hematocrit 40.8 % (36.0-47.0) Mean Corpuscular Volume 73 fL (79-100) Mean Corpuscular Hemoglobin 24 pg (25-35) Mean Corpuscular Hemoglobin Concent 32 g/dL (31-37) Red Cell Distribution Width 16.0 % (11.5-14.5) Platelet Count 329 x10^3/uL (140-400) Neutrophils (%) (Auto) 67 % (31-73) Lymphocytes (%) (Auto) 24 % (24-48) Monocytes (%) (Auto) 8 % (0-9) Eosinophils (%) (Auto) 1 % (0-3) Basophils (%) (Auto) 1 % (0-3) Neutrophils # (Auto) 5.2 x10^3uL (1.8-7.7) Lymphocytes # (Auto) 1.9 x10^3/uL (1.0-4.8) Monocytes # (Auto) 0.6 x10^3/uL (0.0-1.1) Eosinophils # (Auto) 0.1 x10^3/uL (0.0-0.7) Basophils # (Auto) 0.0 x10^3/uL (0.0-0.2) Prothrombin Time 12.4 SEC (11.7-14.0) Prothromb Time International Ratio 1.0 (0.8-1.1) D-Dimer (Miriam) 1.05 ug/mlFEU (0.00-0.50) Sodium Level 142 mmol/L (136-145) Potassium Level 3.2 mmol/L (3.5-5.1) Chloride Level 99 mmol/L (98-107) Carbon Dioxide Level 32 mmol/L (21-32) Anion Gap 11 (6-14) Blood Urea Nitrogen 21 mg/dL (7-20) Creatinine 1.0 mg/dL (0.6-1.0) Estimated GFR (Cockcroft-Gault) 68.7 BUN/Creatinine Ratio 21 (6-20) Glucose Level 182 mg/dL (70-99) Calcium Level 10.1 mg/dL (8.5-10.1) Total Bilirubin 0.9 mg/dL (0.2-1.0) Aspartate Amino Transf (AST/SGOT) 320 U/L (15-37) Alanine Aminotransferase (ALT/SGPT) 158 U/L (14-59) Alkaline Phosphatase 181 U/L (46-116) Creatine Kinase 96 U/L (26-192) Creatine Kinase MB (Mass) < 0.5 ng/mL (0.0-3.6) Creatine Kinase MB Relative Index 0.5 % (0-4) Troponin I Quantitative < 0.017 ng/mL (0.000-0.055) LX-Dkb-V-Type Natriuretic Peptide 23 pg/mL (0-124) Total Protein 8.1 g/dL (6.4-8.2) Albumin 3.8 g/dL (3.4-5.0) Albumin/Globulin Ratio 0.9 (1.0-1.7) Lipase 157 U/L (73-393) Glucose (Fingerstick) 130 mg/dL (70-99) 121 mg/dL (70-99) Hepatitis A IgM Antibody Negative (Negative) Hepatitis B Surface Antigen Negative (Negative) Hepatitis B Core IgM Antibody Negative (Negative) Hepatitis C Antibody 0.1 s/co ratio (0.0-0.9) Test 05/08/17 15:00 05/08/17 16:12 05/08/17 19:09 05/09/17 03:45 Urine Opiates Screen Pos (NEG) Urine Methadone Screen Neg (NEG) Urine Barbiturates Neg (NEG) Urine Phencyclidine Screen Neg (NEG) Urine Amphetamine/Methamphetamine Neg (NEG) Urine Benzodiazepines Screen Pos (NEG) Urine Cocaine Screen Pos (NEG) Urine Cannabinoids Screen Neg (NEG) Urine Ethyl Alcohol Neg (NEG) Glucose (Fingerstick) 107 mg/dL (70-99) 114 mg/dL (70-99) White Blood Count 4.3 x10^3/uL (4.0-11.0) Red Blood Count 5.18 x10^6/uL (3.50-5.40) Hemoglobin 12.0 g/dL (12.0-15.5) Hematocrit 38.4 % (36.0-47.0) Mean Corpuscular Volume 74 fL (79-100) Mean Corpuscular Hemoglobin 23 pg (25-35) Mean Corpuscular Hemoglobin Concent 31 g/dL (31-37) Red Cell Distribution Width 16.6 % (11.5-14.5) Platelet Count 301 x10^3/uL (140-400) Neutrophils (%) (Auto) 37 % (31-73) Lymphocytes (%) (Auto) 54 % (24-48) Monocytes (%) (Auto) 7 % (0-9) Eosinophils (%) (Auto) 3 % (0-3) Basophils (%) (Auto) 0 % (0-3) Neutrophils # (Auto) 1.6 x10^3uL (1.8-7.7) Lymphocytes # (Auto) 2.3 x10^3/uL (1.0-4.8) Monocytes # (Auto) 0.3 x10^3/uL (0.0-1.1) Eosinophils # (Auto) 0.1 x10^3/uL (0.0-0.7) Basophils # (Auto) 0.0 x10^3/uL (0.0-0.2) Sodium Level 142 mmol/L (136-145) Potassium Level 3.1 mmol/L (3.5-5.1) Chloride Level 103 mmol/L (98-107) Carbon Dioxide Level 32 mmol/L (21-32) Anion Gap 7 (6-14) Blood Urea Nitrogen 15 mg/dL (7-20) Creatinine 1.0 mg/dL (0.6-1.0) Estimated GFR (Cockcroft-Gault) 68.7 Glucose Level 117 mg/dL (70-99) Calcium Level 8.9 mg/dL (8.5-10.1) Total Bilirubin 0.8 mg/dL (0.2-1.0) Direct Bilirubin 0.2 mg/dL (0.0-0.2) Aspartate Amino Transf (AST/SGOT) 286 U/L (15-37) Alanine Aminotransferase (ALT/SGPT) 337 U/L (14-59) Alkaline Phosphatase 180 U/L (46-116) Total Protein 7.2 g/dL (6.4-8.2) Albumin 3.1 g/dL (3.4-5.0) Thyroid Stimulating Hormone (TSH) 3.653 uIU/mL (0.358-3.74) Test 05/09/17 07:55 05/09/17 11:54 Glucose (Fingerstick) 108 mg/dL (70-99) 107 mg/dL (70-99) Laboratory Tests Test 05/08/17 15:00 05/08/17 16:12 05/08/17 19:09 05/09/17 03:45 Urine Opiates Screen Pos (NEG) Urine Methadone Screen Neg (NEG) Urine Barbiturates Neg (NEG) Urine Phencyclidine Screen Neg (NEG) Urine Amphetamine/Methamphetamine Neg (NEG) Urine Benzodiazepines Screen Pos (NEG) Urine Cocaine Screen Pos (NEG) Urine Cannabinoids Screen Neg (NEG) Urine Ethyl Alcohol Neg (NEG) Glucose (Fingerstick) 107 mg/dL (70-99) 114 mg/dL (70-99) White Blood Count 4.3 x10^3/uL (4.0-11.0) Red Blood Count 5.18 x10^6/uL (3.50-5.40) Hemoglobin 12.0 g/dL (12.0-15.5) Hematocrit 38.4 % (36.0-47.0) Mean Corpuscular Volume 74 fL (79-100) Mean Corpuscular Hemoglobin 23 pg (25-35) Mean Corpuscular Hemoglobin Concent 31 g/dL (31-37) Red Cell Distribution Width 16.6 % (11.5-14.5) Platelet Count 301 x10^3/uL (140-400) Neutrophils (%) (Auto) 37 % (31-73) Lymphocytes (%) (Auto) 54 % (24-48) Monocytes (%) (Auto) 7 % (0-9) Eosinophils (%) (Auto) 3 % (0-3) Basophils (%) (Auto) 0 % (0-3) Neutrophils # (Auto) 1.6 x10^3uL (1.8-7.7) Lymphocytes # (Auto) 2.3 x10^3/uL (1.0-4.8) Monocytes # (Auto) 0.3 x10^3/uL (0.0-1.1) Eosinophils # (Auto) 0.1 x10^3/uL (0.0-0.7) Basophils # (Auto) 0.0 x10^3/uL (0.0-0.2) Sodium Level 142 mmol/L (136-145) Potassium Level 3.1 mmol/L (3.5-5.1) Chloride Level 103 mmol/L (98-107) Carbon Dioxide Level 32 mmol/L (21-32) Anion Gap 7 (6-14) Blood Urea Nitrogen 15 mg/dL (7-20) Creatinine 1.0 mg/dL (0.6-1.0) Estimated GFR (Cockcroft-Gault) 68.7 Glucose Level 117 mg/dL (70-99) Calcium Level 8.9 mg/dL (8.5-10.1) Total Bilirubin 0.8 mg/dL (0.2-1.0) Direct Bilirubin 0.2 mg/dL (0.0-0.2) Aspartate Amino Transf (AST/SGOT) 286 U/L (15-37) Alanine Aminotransferase (ALT/SGPT) 337 U/L (14-59) Alkaline Phosphatase 180 U/L (46-116) Total Protein 7.2 g/dL (6.4-8.2) Albumin 3.1 g/dL (3.4-5.0) Thyroid Stimulating Hormone (TSH) 3.653 uIU/mL (0.358-3.74) Test 05/09/17 07:55 05/09/17 11:54 Glucose (Fingerstick) 108 mg/dL (70-99) 107 mg/dL (70-99) Medications Current Medications Ondansetron HCl (Zofran) 4 mg 1X ONCE IV Last administered on 05/08/17 02:03 ; Start 05/08/17 at 02:15; Stop 05/08/17 at 02:17; Status DC Fentanyl Citrate (Fentanyl 2ml Vial) 50 mcg 1X ONCE IV Last administered on 02:03; Start 05/08/17 at 02:15; Stop 05/08/17 at 02:17; Status DC Iohexol (Omnipaque 300 Mg/ml) 75 ml 1X ONCE IV Last administered on 05/08/17 02:44; Start 05/08/17 at 03:00; Stop 05/08/17 at 03:01; Status DC Info (Do NOT chart on this entry -- for MONITORING) 1 each PRN DAILY PRN MC SEE COMMENTS; Start 05/08/17 at 02:30; Stop 05/10/17 at 02:29 Famotidine (Pepcid) 20 mg 1X ONCE IVP Last administered on 05/08/17 03:03; Start 05/08/17 at 03:30; Stop 05/08/17 at 03:31; Status DC Fentanyl Citrate (Fentanyl 2ml Vial) 50 mcg 1X ONCE IV Last administered on 03:03; Start 05/08/17 at 03:30; Stop 05/08/17 at 03:31; Status DC Ondansetron HCl (Zofran) 4 mg PRN Q8HRS PRN IV NAUSEA/VOMITING; Start 05/08/17 at 04:15; Stop 05/08/17 at 15:43; Status DC Morphine Sulfate 2 mg PRN Q2HR PRN IV SEVERE PAIN Last administered on 11:11; Start 05/08/17 at 04:15; Stop 05/08/17 at 15:43; Status DC Amlodipine Besylate (Norvasc) 10 mg DAILY PO Last administered on 05/08/17 10: 57; Start 05/08/17 at 11:00; Stop 05/09/17 at 10:23; Status DC Cyclobenzaprine HCl (Flexeril) 10 mg PRN TID PRN PO MUSCLE SPASMS; Start at 10:15 Gemfibrozil (Lopid) 600 mg BID PO Last administered on 05/09/17 10:08; Start 05/08/17 at 11:00 Metformin HCl (Glucophage) 500 mg BIDWMEALS PO ; Start 05/10/17 at 08:00 Metoprolol Tartrate (Lopressor) 50 mg BID PO Last administered on 05/08/17 21: 36; Start 05/08/17 at 11:00 Oxycodone/ Acetaminophen (Percocet 5/325) 1 tab PRN Q6HRS PRN PO MODERATE TO SEVERE PAIN Last administered on 05/08/17 21:36; Start 05/08/17 at 10:15 Acetaminophen (Tylenol) 650 mg PRN Q6HRS PRN PO FEVER; Start 05/08/17 at 10:15 Ondansetron HCl (Zofran) 4 mg PRN Q6HRS PRN IV NAUSEA/VOMITING Last administered on 05/09/17 12:21; Start 05/08/17 at 10:15 Morphine Sulfate 2 mg PRN Q2HR PRN IV PAIN; Start 05/08/17 at 10:15; Stop 05/08 at 10:19; Status DC Tramadol HCl (Ultram) 50 mg PRN Q6HRS PRN PO MILD TO MODERATE PAIN Last administered on 05/09/17 10:41; Start 05/08/17 at 10:15 Hydralazine HCl (Apresoline Inj) 10 mg PRN Q4HRS PRN IVP ELEVATED BP, SEE COMMENTS; Start 05/08/17 at 10:15 Docusate Sodium (Colace) 100 mg PRN DAILY PRN PO CONSTIPATION Last administered on 05/08/17 15:46; Start 05/08/17 at 10:15 Insulin Aspart (NovoLOG) 0-9 UNITS TIDWMEALS SQ ; Start 05/08/17 at 12:00 Dextrose (Dextrose 50%-Water Syringe) 12.5 gm PRN Q15MIN PRN IV SEE COMMENTS; Start 05/08/17 at 10:15 Pantoprazole Sodium (Protonix Vial) 40 mg BID IVP Last administered on 10:54; Start 05/08/17 at 11:00; Stop 05/08/17 at 12:48; Status DC Morphine Sulfate 2 mg PRN Q2HR PRN IV PAIN Last administered on 05/08/17 15:47 ; Start 05/08/17 at 10:30 Nicotine (Nicoderm Cq 14mg) 1 patch PRN DAILY PRN TD SMOKING CESSATION Last administered on 05/08/17 11:20; Start 05/08/17 at 10:30 Pantoprazole Sodium (Protonix) 40 mg BIDAC PO Last administered on 05/09/17 07:52; Start 05/08/17 at 16:30 Sodium Chloride 1,000 ml @ 100 mls/hr Q10H IV Last administered on 05/09/17 12:21; Start 05/08/17 at 15:45 Potassium Chloride (Klor-Con) 40 meq 1X ONCE PO Last administered on 10:10; Start 05/09/17 at 10:00; Stop 05/09/17 at 10:01; Status DC Amlodipine Besylate (Norvasc) 5 mg DAILY PO ; Start 05/10/17 at 09:00 Amlodipine Besylate (Norvasc) 5 mg 1X ONCE PO Last administered on 05/09/17 10:42; Start 05/09/17 at 11:00; Stop 05/09/17 at 11:01; Status DC Active Scripts Active Oxycodone-Acetaminophen 5-325 (Oxycodone Hcl/Acetaminophen) 1 Each Tablet 1 Each PO PRN Q6HRS PRN Oxycodone-Acetaminophen 5-325 (Oxycodone Hcl/Acetaminophen) 1 Each Tablet 1 Tab PO PRN Q4HRS PRN Reported Klor-Con M20 (Potassium Chloride) 20 Meq Tab.er.prt 1 Tab PO DAILY Hydrochlorothiazide Tablet (Hydrochlorothiazide) 25 Mg Tablet 25 Mg PO DAILY Percocet 7.5-325 Mg Tablet (Oxycodone/Acetaminophen) 1 Each Tablet 1 Tab PO PRN Q4HRS PRN Amlodipine Besylate 10 Mg Tablet 10 Mg PO DAILY Cyclobenzaprine Hcl 10 Mg Tablet 10 Mg PO TID PRN Metoprolol Tartrate 50 Mg Tablet 1 Tab PO BID Gemfibrozil 600 Mg Tablet 600 Mg PO BID Metformin Hcl 500 Mg Tablet 1 Tab PO BID Vitals/I & O Vital Sign - Last 24 Hours 05/08/17 05/08/17 05/08/17 05/08/17 15:22 15:47 16:17 19:00 Temp 97.9 97.9 Pulse 65 Resp 16 16 B/P (MAP) 130/74 (92) Pulse Ox 92 92 O2 Delivery Room Air Room Air Nasal Cannula Nasal Cannula O2 Flow Rate 2.0 2.0 05/08/17 05/08/17 05/08/17 05/08/17 19:00 21:36 21:36 22:43 Temp 97.9 97.9 Pulse 63 63 Resp 18 20 18 B/P (MAP) 143/67 (92) 143/67 Pulse Ox 93 O2 Delivery Room Air Room Air Room Air 05/08/17 05/09/17 05/09/17 05/09/17 22:43 02:52 06:43 08:00 Temp 98.7 98.1 97.7 98.7 98.1 97.7 Pulse 71 57 55 Resp 18 20 20 B/P (MAP) 121/61 (81) 98/68 (78) 97/58 (71) Pulse Ox 97 90 O2 Delivery Room Air Room Air Room Air Nasal Cannula O2 Flow Rate 2.0 05/09/17 05/09/17 05/09/17 05/09/17 09:00 10:05 10:41 10:42 Pulse 55 55 56 B/P (MAP) 97/58 97/58 143/80 Pulse Ox 90 O2 Delivery Nasal Cannula O2 Flow Rate 2.0 05/09/17 05/09/17 11:04 11:43 Temp 97.7 97.7 Pulse 56 Resp 16 B/P (MAP) 143/80 (101) Pulse Ox 98 98 O2 Delivery Room Air Nasal Cannula O2 Flow Rate 2.0 Intake and Output 05/09/17 05/09/17 05/10/17 14:59 22:59 06:59 Intake Total 480 ml Balance 480 ml WILBER LIMA MD May 09, 2017 13:31
[2017-05-09 14:52] VITALS: BP 146/76
[2017-05-09 19:29] VITALS: BP 162/79
[2017-05-09 22:46] VITALS: BP 149/59
[2017-05-10 03:45] VITALS: BP 148/61
[2017-05-10 05:06] LABS: BASO % 0 % (0-3); EOS % 3 % (0-3); HEMATOCRIT 38.3 % (36.0-47.0); HEMOGLOBIN 12.1 g/dL (12.0-15.5); LYMPH # 2.2 x10^3/uL (1.0-4.8); LYMPH % 55 % (24-48); MEAN CORPUSCULAR HEMOGLOBIN 23 pg (25-35); MEAN CORPUSCULAR HGB CONC 32 g/dL (31-37); MEAN CORPUSCULAR VOLUME 73 fL (79-100); MONO % 9 % (0-9); NEUT % 33 % (31-73); PLATELET COUNT 297 x10^3/uL (140-400); RED BLOOD COUNT 5.23 x10^6/uL (3.50-5.40); RED CELL DISTRIBUTION WIDTH 16.5 % (11.5-14.5)
[2017-05-10 05:55] LABS: ALBUMIN 3.1 g/dL (3.4-5.0); CREATININE 0.9 mg/dL (0.6-1.0); DIRECT BILIRUBIN 0.2 mg/dL (0.0-0.2); GFR 77.5; POTASSIUM 3.2 mmol/L (3.5-5.1); TOTAL BILIRUBIN 0.7 mg/dL (0.2-1.0); TOTAL PROTEIN 7.1 g/dL (6.4-8.2)
[2017-05-10] MEDS: PANTOPRAZOLE 40 MG TABLET.DR. PO SCH ×2 (07:30→17:21)
[2017-05-10 08:00] VITALS: BP 159/78
[2017-05-10] MEDS: metFORMIN 500 MG TABLET PO SCH ×2 (08:00→17:21)
[2017-05-10] MEDS: INSULIN ASPART 300 UNITS/3 ML INSULN.PEN SQ SCH ×3 (08:00→17:00)
[2017-05-10] MEDS: IV NORMAL SALINE 1000ML BAG 1,000 ML IV SCH ×2 (08:31→22:29)
--- NOTE | 2017-05-10 10:31 | PDOC ---
G I PROGRESS NOTE Reason for Follow-up Abdominal pain/abnormal LFT's Subjective Still with pc nausea. RUQ pain. Physical Exam Lungs clear. RRR Abdomen soft. Tender ribs at costal margin. Review of Relevant I have reviewed the following items jewel (where applicable) has been applied. Labs Laboratory Tests Test 05/08/17 11:02 05/08/17 13:05 05/08/17 15:00 05/08/17 16:12 Glucose (Fingerstick) 121 mg/dL (70-99) 107 mg/dL (70-99) Cytomegalovirus IgG Antibody 8.10 U/mL (0.00-0.59) Cytomegalovirus IgM Antibody <30.0 AU/mL (0.0-29.9) Lashawn-Santos Virus Capsid Ag IgG Ab 156.0 U/mL (0.0-17.9) Lashawn-Santos Virus Capsid Ag IgM Ab <36.0 U/mL (0.0-35.9) Lashawn-Santos Early Antigen IgG Ab <9.0 U/mL (0.0-8.9) Lashawn-Santos Nuc Assoc Ag IgG Index 440.0 U/mL (0.0-17.9) Lashawn-Santos Virus Interpretation Comment (.) Hepatitis A IgM Antibody Negative (Negative) Hepatitis B Surface Antigen Negative (Negative) Hepatitis B Core IgM Antibody Negative (Negative) Hepatitis C Antibody 0.1 s/co ratio (0.0-0.9) Urine Opiates Screen Pos (NEG) Urine Methadone Screen Neg (NEG) Urine Barbiturates Neg (NEG) Urine Phencyclidine Screen Neg (NEG) Urine Amphetamine/Methamphetamine Neg (NEG) Urine Benzodiazepines Screen Pos (NEG) Urine Cocaine Screen Pos (NEG) Urine Cannabinoids Screen Neg (NEG) Urine Ethyl Alcohol Neg (NEG) Test 05/08/17 19:09 05/09/17 03:45 05/09/17 07:55 05/09/17 11:54 Glucose (Fingerstick) 114 mg/dL (70-99) 108 mg/dL (70-99) 107 mg/dL (70-99) White Blood Count 4.3 x10^3/uL (4.0-11.0) Red Blood Count 5.18 x10^6/uL (3.50-5.40) Hemoglobin 12.0 g/dL (12.0-15.5) Hematocrit 38.4 % (36.0-47.0) Mean Corpuscular Volume 74 fL (79-100) Mean Corpuscular Hemoglobin 23 pg (25-35) Mean Corpuscular Hemoglobin Concent 31 g/dL (31-37) Red Cell Distribution Width 16.6 % (11.5-14.5) Platelet Count 301 x10^3/uL (140-400) Neutrophils (%) (Auto) 37 % (31-73) Lymphocytes (%) (Auto) 54 % (24-48) Monocytes (%) (Auto) 7 % (0-9) Eosinophils (%) (Auto) 3 % (0-3) Basophils (%) (Auto) 0 % (0-3) Neutrophils # (Auto) 1.6 x10^3uL (1.8-7.7) Lymphocytes # (Auto) 2.3 x10^3/uL (1.0-4.8) Monocytes # (Auto) 0.3 x10^3/uL (0.0-1.1) Eosinophils # (Auto) 0.1 x10^3/uL (0.0-0.7) Basophils # (Auto) 0.0 x10^3/uL (0.0-0.2) Sodium Level 142 mmol/L (136-145) Potassium Level 3.1 mmol/L (3.5-5.1) Chloride Level 103 mmol/L (98-107) Carbon Dioxide Level 32 mmol/L (21-32) Anion Gap 7 (6-14) Blood Urea Nitrogen 15 mg/dL (7-20) Creatinine 1.0 mg/dL (0.6-1.0) Estimated GFR (Cockcroft-Gault) 68.7 Glucose Level 117 mg/dL (70-99) Calcium Level 8.9 mg/dL (8.5-10.1) Total Bilirubin 0.8 mg/dL (0.2-1.0) Direct Bilirubin 0.2 mg/dL (0.0-0.2) Aspartate Amino Transf (AST/SGOT) 286 U/L (15-37) Alanine Aminotransferase (ALT/SGPT) 337 U/L (14-59) Alkaline Phosphatase 180 U/L (46-116) Total Protein 7.2 g/dL (6.4-8.2) Albumin 3.1 g/dL (3.4-5.0) Thyroid Stimulating Hormone (TSH) 3.653 uIU/mL (0.358-3.74) Test 05/09/17 16:45 05/10/17 04:14 05/10/17 05:00 05/10/17 07:34 Glucose (Fingerstick) 104 mg/dL (70-99) 106 mg/dL (70-99) Sodium Level 140 mmol/L (136-145) Potassium Level 3.2 mmol/L (3.5-5.1) Chloride Level 104 mmol/L (98-107) Carbon Dioxide Level 30 mmol/L (21-32) Anion Gap 6 (6-14) Blood Urea Nitrogen 7 mg/dL (7-20) Creatinine 0.9 mg/dL (0.6-1.0) Estimated GFR (Cockcroft-Gault) 77.5 Glucose Level 111 mg/dL (70-99) Calcium Level 9.0 mg/dL (8.5-10.1) Total Bilirubin 0.7 mg/dL (0.2-1.0) Direct Bilirubin 0.2 mg/dL (0.0-0.2) Aspartate Amino Transf (AST/SGOT) 107 U/L (15-37) Alanine Aminotransferase (ALT/SGPT) 219 U/L (14-59) Alkaline Phosphatase 158 U/L (46-116) Total Protein 7.1 g/dL (6.4-8.2) Albumin 3.1 g/dL (3.4-5.0) White Blood Count 4.0 x10^3/uL (4.0-11.0) Red Blood Count 5.23 x10^6/uL (3.50-5.40) Hemoglobin 12.1 g/dL (12.0-15.5) Hematocrit 38.3 % (36.0-47.0) Mean Corpuscular Volume 73 fL (79-100) Mean Corpuscular Hemoglobin 23 pg (25-35) Mean Corpuscular Hemoglobin Concent 32 g/dL (31-37) Red Cell Distribution Width 16.5 % (11.5-14.5) Platelet Count 297 x10^3/uL (140-400) Neutrophils (%) (Auto) 33 % (31-73) Lymphocytes (%) (Auto) 55 % (24-48) Monocytes (%) (Auto) 9 % (0-9) Eosinophils (%) (Auto) 3 % (0-3) Basophils (%) (Auto) 0 % (0-3) Neutrophils # (Auto) 1.3 x10^3uL (1.8-7.7) Lymphocytes # (Auto) 2.2 x10^3/uL (1.0-4.8) Monocytes # (Auto) 0.4 x10^3/uL (0.0-1.1) Eosinophils # (Auto) 0.1 x10^3/uL (0.0-0.7) Basophils # (Auto) 0.0 x10^3/uL (0.0-0.2) Laboratory Tests Test 05/09/17 11:54 05/09/17 16:45 05/10/17 04:14 05/10/17 05:00 Glucose (Fingerstick) 107 mg/dL (70-99) 104 mg/dL (70-99) Sodium Level 140 mmol/L (136-145) Potassium Level 3.2 mmol/L (3.5-5.1) Chloride Level 104 mmol/L (98-107) Carbon Dioxide Level 30 mmol/L (21-32) Anion Gap 6 (6-14) Blood Urea Nitrogen 7 mg/dL (7-20) Creatinine 0.9 mg/dL (0.6-1.0) Estimated GFR (Cockcroft-Gault) 77.5 Glucose Level 111 mg/dL (70-99) Calcium Level 9.0 mg/dL (8.5-10.1) Total Bilirubin 0.7 mg/dL (0.2-1.0) Direct Bilirubin 0.2 mg/dL (0.0-0.2) Aspartate Amino Transf (AST/SGOT) 107 U/L (15-37) Alanine Aminotransferase (ALT/SGPT) 219 U/L (14-59) Alkaline Phosphatase 158 U/L (46-116) Total Protein 7.1 g/dL (6.4-8.2) Albumin 3.1 g/dL (3.4-5.0) White Blood Count 4.0 x10^3/uL (4.0-11.0) Red Blood Count 5.23 x10^6/uL (3.50-5.40) Hemoglobin 12.1 g/dL (12.0-15.5) Hematocrit 38.3 % (36.0-47.0) Mean Corpuscular Volume 73 fL (79-100) Mean Corpuscular Hemoglobin 23 pg (25-35) Mean Corpuscular Hemoglobin Concent 32 g/dL (31-37) Red Cell Distribution Width 16.5 % (11.5-14.5) Platelet Count 297 x10^3/uL (140-400) Neutrophils (%) (Auto) 33 % (31-73) Lymphocytes (%) (Auto) 55 % (24-48) Monocytes (%) (Auto) 9 % (0-9) Eosinophils (%) (Auto) 3 % (0-3) Basophils (%) (Auto) 0 % (0-3) Neutrophils # (Auto) 1.3 x10^3uL (1.8-7.7) Lymphocytes # (Auto) 2.2 x10^3/uL (1.0-4.8) Monocytes # (Auto) 0.4 x10^3/uL (0.0-1.1) Eosinophils # (Auto) 0.1 x10^3/uL (0.0-0.7) Basophils # (Auto) 0.0 x10^3/uL (0.0-0.2) Test 05/10/17 07:34 Glucose (Fingerstick) 106 mg/dL (70-99) Microcytic. LFT's better. Medications Current Medications Ondansetron HCl (Zofran) 4 mg 1X ONCE IV Last administered on 05/08/17 02:03 ; Start 05/08/17 at 02:15; Stop 05/08/17 at 02:17; Status DC Fentanyl Citrate (Fentanyl 2ml Vial) 50 mcg 1X ONCE IV Last administered on 02:03; Start 05/08/17 at 02:15; Stop 05/08/17 at 02:17; Status DC Iohexol (Omnipaque 300 Mg/ml) 75 ml 1X ONCE IV Last administered on 05/08/17 02:44; Start 05/08/17 at 03:00; Stop 05/08/17 at 03:01; Status DC Info (Do NOT chart on this entry -- for MONITORING) 1 each PRN DAILY PRN MC SEE COMMENTS; Start 05/08/17 at 02:30; Stop 05/10/17 at 02:29; Status DC Famotidine (Pepcid) 20 mg 1X ONCE IVP Last administered on 05/08/17 03:03; Start 05/08/17 at 03:30; Stop 05/08/17 at 03:31; Status DC Fentanyl Citrate (Fentanyl 2ml Vial) 50 mcg 1X ONCE IV Last administered on 03:03; Start 05/08/17 at 03:30; Stop 05/08/17 at 03:31; Status DC Ondansetron HCl (Zofran) 4 mg PRN Q8HRS PRN IV NAUSEA/VOMITING; Start 05/08/17 at 04:15; Stop 05/08/17 at 15:43; Status DC Morphine Sulfate 2 mg PRN Q2HR PRN IV SEVERE PAIN Last administered on 11:11; Start 05/08/17 at 04:15; Stop 05/08/17 at 15:43; Status DC Amlodipine Besylate (Norvasc) 10 mg DAILY PO Last administered on 05/08/17 10: 57; Start 05/08/17 at 11:00; Stop 05/09/17 at 10:23; Status DC Cyclobenzaprine HCl (Flexeril) 10 mg PRN TID PRN PO MUSCLE SPASMS; Start at 10:15 Gemfibrozil (Lopid) 600 mg BID PO Last administered on 05/09/17 20:47; Start 05/08/17 at 11:00 Metformin HCl (Glucophage) 500 mg BIDWMEALS PO ; Start 05/10/17 at 08:00 Metoprolol Tartrate (Lopressor) 50 mg BID PO Last administered on 05/09/17 20 :47; Start 05/08/17 at 11:00 Oxycodone/ Acetaminophen (Percocet 5/325) 1 tab PRN Q6HRS PRN PO MODERATE TO SEVERE PAIN Last administered on 05/08/17 21:36; Start 05/08/17 at 10:15 Acetaminophen (Tylenol) 650 mg PRN Q6HRS PRN PO FEVER; Start 05/08/17 at 10:15 Ondansetron HCl (Zofran) 4 mg PRN Q6HRS PRN IV NAUSEA/VOMITING Last administered on 05/09/17 12:21; Start 05/08/17 at 10:15 Morphine Sulfate 2 mg PRN Q2HR PRN IV PAIN; Start 05/08/17 at 10:15; Stop 05/08 at 10:19; Status DC Tramadol HCl (Ultram) 50 mg PRN Q6HRS PRN PO MILD TO MODERATE PAIN Last administered on 05/09/17 10:41; Start 05/08/17 at 10:15 Hydralazine HCl (Apresoline Inj) 10 mg PRN Q4HRS PRN IVP ELEVATED BP, SEE COMMENTS; Start 05/08/17 at 10:15 Docusate Sodium (Colace) 100 mg PRN DAILY PRN PO CONSTIPATION Last administered on 05/08/17 15:46; Start 05/08/17 at 10:15 Insulin Aspart (NovoLOG) 0-9 UNITS TIDWMEALS SQ ; Start 05/08/17 at 12:00 Dextrose (Dextrose 50%-Water Syringe) 12.5 gm PRN Q15MIN PRN IV SEE COMMENTS; Start 05/08/17 at 10:15 Pantoprazole Sodium (Protonix Vial) 40 mg BID IVP Last administered on 10:54; Start 05/08/17 at 11:00; Stop 05/08/17 at 12:48; Status DC Morphine Sulfate 2 mg PRN Q2HR PRN IV PAIN Last administered on 05/08/17 15:47 ; Start 05/08/17 at 10:30 Nicotine (Nicoderm Cq 14mg) 1 patch PRN DAILY PRN TD SMOKING CESSATION Last administered on 05/08/17 11:20; Start 05/08/17 at 10:30 Pantoprazole Sodium (Protonix) 40 mg BIDAC PO Last administered on 05/09/17 16:57; Start 05/08/17 at 16:30 Sodium Chloride 1,000 ml @ 100 mls/hr Q10H IV Last administered on 05/10/17 08:31; Start 05/08/17 at 15:45 Potassium Chloride (Klor-Con) 40 meq 1X ONCE PO Last administered on 10:10; Start 05/09/17 at 10:00; Stop 05/09/17 at 10:01; Status DC Amlodipine Besylate (Norvasc) 5 mg DAILY PO ; Start 05/10/17 at 09:00 Amlodipine Besylate (Norvasc) 5 mg 1X ONCE PO Last administered on 05/09/17t 10:42; Start 05/09/17 at 11:00; Stop 05/09/17 at 11:01; Status DC Active Scripts Active Oxycodone-Acetaminophen 5-325 (Oxycodone Hcl/Acetaminophen) 1 Each Tablet 1 Each PO PRN Q6HRS PRN Oxycodone-Acetaminophen 5-325 (Oxycodone Hcl/Acetaminophen) 1 Each Tablet 1 Tab PO PRN Q4HRS PRN Reported Klor-Con M20 (Potassium Chloride) 20 Meq Tab.er.prt 1 Tab PO DAILY Hydrochlorothiazide Tablet (Hydrochlorothiazide) 25 Mg Tablet 25 Mg PO DAILY Percocet 7.5-325 Mg Tablet (Oxycodone/Acetaminophen) 1 Each Tablet 1 Tab PO PRN Q4HRS PRN Amlodipine Besylate 10 Mg Tablet 10 Mg PO DAILY Cyclobenzaprine Hcl 10 Mg Tablet 10 Mg PO TID PRN Metoprolol Tartrate 50 Mg Tablet 1 Tab PO BID Gemfibrozil 600 Mg Tablet 600 Mg PO BID Metformin Hcl 500 Mg Tablet 1 Tab PO BID Vitals/I & O Vital Sign - Last 24 Hours 05/09/17 05/09/17 05/09/17 05/09/17 10:41 10:42 11:04 11:43 Temp 97.7 97.7 Pulse 56 56 Resp 16 B/P (MAP) 143/80 143/80 (101) Pulse Ox 90 98 98 O2 Delivery Nasal Cannula Room Air Nasal Cannula O2 Flow Rate 2.0 2.0 05/09/17 05/09/17 05/09/17 05/09/17 14:52 19:29 19:46 20:47 Temp 98.8 98.1 98.8 98.1 Pulse 62 62 62 Resp 16 14 B/P (MAP) 146/76 (99) 162/79 (106) 162/79 Pulse Ox 92 98 O2 Delivery Room Air Room Air Nasal Cannula O2 Flow Rate 2.0 05/09/17 05/10/17 05/10/17 05/10/17 22:46 03:45 08:00 08:00 Temp 97.9 97.9 97.8 97.9 97.9 97.8 Pulse 57 60 51 Resp 15 17 20 B/P (MAP) 149/59 (89) 148/61 (90) 159/78 (105) Pulse Ox 93 92 92 O2 Delivery Room Air Room Air Room Air Room Air Intake and Output 05/10/17 05/10/17 05/11/17 15:00 23:00 07:00 Intake Total 0 ml Balance 0 ml Images MRCP pending. Problem List Problems Medical Problems: (1) Abdominal pain Status: Acute (2) Nausea and vomiting Status: Acute Assessment Abnormal LFT's; suspect viral illness not from detectable viruses. RUQ in part is M/S. Pc nausea may be her GERD. Microcytosis; iron deficiency? Plan of Care: Continue current Tx, Mgmt Plan of Care Note Await MRCP. Antisecretory if not receiving. Check iron studies. LUCIEN POTTER MD May 10, 2017 10:31
--- NOTE | 2017-05-10 10:40 | PDOC ---
PROGRESS NOTES Chief Complaint Chief Complaint GB and CBD stones EBV and CNV antigen positive dm2 htn tobaccoism hypokalemia, repl;aced elevated transaminatis, drug abuse with cocaine History of Present Illness History of Present Illness Some abd pain Did not tolerate crackers NO fevers EBV and CMV IG Antigen positive For MRCP today GI and GS both on board PLAn: MRCp today Liquid diet post MRCP - would not upgrade Monitor LFts Control pain dw pt and RN Vitals Vitals Vital Signs Date Time Temp Pulse Resp B/P (MAP) Pulse Ox O2 Delivery O2 Flow Rate FiO2 05/10/17 08:00 97.8 51 20 159/78 (105) 92 Room Air 97.8 05/09/17 19:46 2.0 Physical Exam General: Alert, Oriented X3, Cooperative, No acute distress Heart: Regular rate, Normal S1, Normal S2, No murmurs Lungs: Clear Abdomen: Normal bowel sounds, Soft, Other (RUQ ,EPIGASTRIC AND LUQ tenderness) Extremities: No clubbing, No cyanosis Skin: No rashes, No breakdown Labs LABS Laboratory Tests Test 05/09/17 11:54 05/09/17 16:45 05/10/17 04:14 05/10/17 05:00 Glucose (Fingerstick) 107 mg/dL (70-99) 104 mg/dL (70-99) Sodium Level 140 mmol/L (136-145) Potassium Level 3.2 mmol/L (3.5-5.1) Chloride Level 104 mmol/L (98-107) Carbon Dioxide Level 30 mmol/L (21-32) Anion Gap 6 (6-14) Blood Urea Nitrogen 7 mg/dL (7-20) Creatinine 0.9 mg/dL (0.6-1.0) Estimated GFR (Cockcroft-Gault) 77.5 Glucose Level 111 mg/dL (70-99) Calcium Level 9.0 mg/dL (8.5-10.1) Total Bilirubin 0.7 mg/dL (0.2-1.0) Direct Bilirubin 0.2 mg/dL (0.0-0.2) Aspartate Amino Transf (AST/SGOT) 107 U/L (15-37) Alanine Aminotransferase (ALT/SGPT) 219 U/L (14-59) Alkaline Phosphatase 158 U/L (46-116) Total Protein 7.1 g/dL (6.4-8.2) Albumin 3.1 g/dL (3.4-5.0) White Blood Count 4.0 x10^3/uL (4.0-11.0) Red Blood Count 5.23 x10^6/uL (3.50-5.40) Hemoglobin 12.1 g/dL (12.0-15.5) Hematocrit 38.3 % (36.0-47.0) Mean Corpuscular Volume 73 fL (79-100) Mean Corpuscular Hemoglobin 23 pg (25-35) Mean Corpuscular Hemoglobin Concent 32 g/dL (31-37) Red Cell Distribution Width 16.5 % (11.5-14.5) Platelet Count 297 x10^3/uL (140-400) Neutrophils (%) (Auto) 33 % (31-73) Lymphocytes (%) (Auto) 55 % (24-48) Monocytes (%) (Auto) 9 % (0-9) Eosinophils (%) (Auto) 3 % (0-3) Basophils (%) (Auto) 0 % (0-3) Neutrophils # (Auto) 1.3 x10^3uL (1.8-7.7) Lymphocytes # (Auto) 2.2 x10^3/uL (1.0-4.8) Monocytes # (Auto) 0.4 x10^3/uL (0.0-1.1) Eosinophils # (Auto) 0.1 x10^3/uL (0.0-0.7) Basophils # (Auto) 0.0 x10^3/uL (0.0-0.2) Test 05/10/17 07:34 Glucose (Fingerstick) 106 mg/dL (70-99) Review of Systems Review of Systems abd pain, some nauseam, no emesis, CP, SOA, or fevers Assessment and Plan Assessmemt and Plan Problems Medical Problems: (1) Abdominal pain Status: Acute (2) Nausea and vomiting Status: Acute Problems: Comment Review of Relevant I have reviewed the following items jewel (where applicable) has been applied. Labs Laboratory Tests Test 05/08/17 11:02 05/08/17 13:05 05/08/17 15:00 05/08/17 16:12 Glucose (Fingerstick) 121 mg/dL (70-99) 107 mg/dL (70-99) Cytomegalovirus IgG Antibody 8.10 U/mL (0.00-0.59) Cytomegalovirus IgM Antibody <30.0 AU/mL (0.0-29.9) Lashawn-Santos Virus Capsid Ag IgG Ab 156.0 U/mL (0.0-17.9) Lashawn-Santos Virus Capsid Ag IgM Ab <36.0 U/mL (0.0-35.9) Lashawn-Santos Early Antigen IgG Ab <9.0 U/mL (0.0-8.9) Lashawn-Santos Nuc Assoc Ag IgG Index 440.0 U/mL (0.0-17.9) Lashawn-Santos Virus Interpretation Comment (.) Hepatitis A IgM Antibody Negative (Negative) Hepatitis B Surface Antigen Negative (Negative) Hepatitis B Core IgM Antibody Negative (Negative) Hepatitis C Antibody 0.1 s/co ratio (0.0-0.9) Urine Opiates Screen Pos (NEG) Urine Methadone Screen Neg (NEG) Urine Barbiturates Neg (NEG) Urine Phencyclidine Screen Neg (NEG) Urine Amphetamine/Methamphetamine Neg (NEG) Urine Benzodiazepines Screen Pos (NEG) Urine Cocaine Screen Pos (NEG) Urine Cannabinoids Screen Neg (NEG) Urine Ethyl Alcohol Neg (NEG) Test 05/08/17 19:09 05/09/17 03:45 05/09/17 07:55 05/09/17 11:54 Glucose (Fingerstick) 114 mg/dL (70-99) 108 mg/dL (70-99) 107 mg/dL (70-99) White Blood Count 4.3 x10^3/uL (4.0-11.0) Red Blood Count 5.18 x10^6/uL (3.50-5.40) Hemoglobin 12.0 g/dL (12.0-15.5) Hematocrit 38.4 % (36.0-47.0) Mean Corpuscular Volume 74 fL (79-100) Mean Corpuscular Hemoglobin 23 pg (25-35) Mean Corpuscular Hemoglobin Concent 31 g/dL (31-37) Red Cell Distribution Width 16.6 % (11.5-14.5) Platelet Count 301 x10^3/uL (140-400) Neutrophils (%) (Auto) 37 % (31-73) Lymphocytes (%) (Auto) 54 % (24-48) Monocytes (%) (Auto) 7 % (0-9) Eosinophils (%) (Auto) 3 % (0-3) Basophils (%) (Auto) 0 % (0-3) Neutrophils # (Auto) 1.6 x10^3uL (1.8-7.7) Lymphocytes # (Auto) 2.3 x10^3/uL (1.0-4.8) Monocytes # (Auto) 0.3 x10^3/uL (0.0-1.1) Eosinophils # (Auto) 0.1 x10^3/uL (0.0-0.7) Basophils # (Auto) 0.0 x10^3/uL (0.0-0.2) Sodium Level 142 mmol/L (136-145) Potassium Level 3.1 mmol/L (3.5-5.1) Chloride Level 103 mmol/L (98-107) Carbon Dioxide Level 32 mmol/L (21-32) Anion Gap 7 (6-14) Blood Urea Nitrogen 15 mg/dL (7-20) Creatinine 1.0 mg/dL (0.6-1.0) Estimated GFR (Cockcroft-Gault) 68.7 Glucose Level 117 mg/dL (70-99) Calcium Level 8.9 mg/dL (8.5-10.1) Total Bilirubin 0.8 mg/dL (0.2-1.0) Direct Bilirubin 0.2 mg/dL (0.0-0.2) Aspartate Amino Transf (AST/SGOT) 286 U/L (15-37) Alanine Aminotransferase (ALT/SGPT) 337 U/L (14-59) Alkaline Phosphatase 180 U/L (46-116) Total Protein 7.2 g/dL (6.4-8.2) Albumin 3.1 g/dL (3.4-5.0) Thyroid Stimulating Hormone (TSH) 3.653 uIU/mL (0.358-3.74) Test 05/09/17 16:45 05/10/17 04:14 05/10/17 05:00 05/10/17 07:34 Glucose (Fingerstick) 104 mg/dL (70-99) 106 mg/dL (70-99) Sodium Level 140 mmol/L (136-145) Potassium Level 3.2 mmol/L (3.5-5.1) Chloride Level 104 mmol/L (98-107) Carbon Dioxide Level 30 mmol/L (21-32) Anion Gap 6 (6-14) Blood Urea Nitrogen 7 mg/dL (7-20) Creatinine 0.9 mg/dL (0.6-1.0) Estimated GFR (Cockcroft-Gault) 77.5 Glucose Level 111 mg/dL (70-99) Calcium Level 9.0 mg/dL (8.5-10.1) Total Bilirubin 0.7 mg/dL (0.2-1.0) Direct Bilirubin 0.2 mg/dL (0.0-0.2) Aspartate Amino Transf (AST/SGOT) 107 U/L (15-37) Alanine Aminotransferase (ALT/SGPT) 219 U/L (14-59) Alkaline Phosphatase 158 U/L (46-116) Total Protein 7.1 g/dL (6.4-8.2) Albumin 3.1 g/dL (3.4-5.0) White Blood Count 4.0 x10^3/uL (4.0-11.0) Red Blood Count 5.23 x10^6/uL (3.50-5.40) Hemoglobin 12.1 g/dL (12.0-15.5) Hematocrit 38.3 % (36.0-47.0) Mean Corpuscular Volume 73 fL (79-100) Mean Corpuscular Hemoglobin 23 pg (25-35) Mean Corpuscular Hemoglobin Concent 32 g/dL (31-37) Red Cell Distribution Width 16.5 % (11.5-14.5) Platelet Count 297 x10^3/uL (140-400) Neutrophils (%) (Auto) 33 % (31-73) Lymphocytes (%) (Auto) 55 % (24-48) Monocytes (%) (Auto) 9 % (0-9) Eosinophils (%) (Auto) 3 % (0-3) Basophils (%) (Auto) 0 % (0-3) Neutrophils # (Auto) 1.3 x10^3uL (1.8-7.7) Lymphocytes # (Auto) 2.2 x10^3/uL (1.0-4.8) Monocytes # (Auto) 0.4 x10^3/uL (0.0-1.1) Eosinophils # (Auto) 0.1 x10^3/uL (0.0-0.7) Basophils # (Auto) 0.0 x10^3/uL (0.0-0.2) Laboratory Tests Test 05/09/17 11:54 05/09/17 16:45 05/10/17 04:14 05/10/17 05:00 Glucose (Fingerstick) 107 mg/dL (70-99) 104 mg/dL (70-99) Sodium Level 140 mmol/L (136-145) Potassium Level 3.2 mmol/L (3.5-5.1) Chloride Level 104 mmol/L (98-107) Carbon Dioxide Level 30 mmol/L (21-32) Anion Gap 6 (6-14) Blood Urea Nitrogen 7 mg/dL (7-20) Creatinine 0.9 mg/dL (0.6-1.0) Estimated GFR (Cockcroft-Gault) 77.5 Glucose Level 111 mg/dL (70-99) Calcium Level 9.0 mg/dL (8.5-10.1) Total Bilirubin 0.7 mg/dL (0.2-1.0) Direct Bilirubin 0.2 mg/dL (0.0-0.2) Aspartate Amino Transf (AST/SGOT) 107 U/L (15-37) Alanine Aminotransferase (ALT/SGPT) 219 U/L (14-59) Alkaline Phosphatase 158 U/L (46-116) Total Protein 7.1 g/dL (6.4-8.2) Albumin 3.1 g/dL (3.4-5.0) White Blood Count 4.0 x10^3/uL (4.0-11.0) Red Blood Count 5.23 x10^6/uL (3.50-5.40) Hemoglobin 12.1 g/dL (12.0-15.5) Hematocrit 38.3 % (36.0-47.0) Mean Corpuscular Volume 73 fL (79-100) Mean Corpuscular Hemoglobin 23 pg (25-35) Mean Corpuscular Hemoglobin Concent 32 g/dL (31-37) Red Cell Distribution Width 16.5 % (11.5-14.5) Platelet Count 297 x10^3/uL (140-400) Neutrophils (%) (Auto) 33 % (31-73) Lymphocytes (%) (Auto) 55 % (24-48) Monocytes (%) (Auto) 9 % (0-9) Eosinophils (%) (Auto) 3 % (0-3) Basophils (%) (Auto) 0 % (0-3) Neutrophils # (Auto) 1.3 x10^3uL (1.8-7.7) Lymphocytes # (Auto) 2.2 x10^3/uL (1.0-4.8) Monocytes # (Auto) 0.4 x10^3/uL (0.0-1.1) Eosinophils # (Auto) 0.1 x10^3/uL (0.0-0.7) Basophils # (Auto) 0.0 x10^3/uL (0.0-0.2) Test 05/10/17 07:34 Glucose (Fingerstick) 106 mg/dL (70-99) Medications Current Medications Ondansetron HCl (Zofran) 4 mg 1X ONCE IV Last administered on 05/08/17 02:03 ; Start 05/08/17 at 02:15; Stop 05/08/17 at 02:17; Status DC Fentanyl Citrate (Fentanyl 2ml Vial) 50 mcg 1X ONCE IV Last administered on 02:03; Start 05/08/17 at 02:15; Stop 05/08/17 at 02:17; Status DC Iohexol (Omnipaque 300 Mg/ml) 75 ml 1X ONCE IV Last administered on 05/08/17 02:44; Start 05/08/17 at 03:00; Stop 05/08/17 at 03:01; Status DC Info (Do NOT chart on this entry -- for MONITORING) 1 each PRN DAILY PRN MC SEE COMMENTS; Start 05/08/17 at 02:30; Stop 05/10/17 at 02:29; Status DC Famotidine (Pepcid) 20 mg 1X ONCE IVP Last administered on 05/08/17 03:03; Start 05/08/17 at 03:30; Stop 05/08/17 at 03:31; Status DC Fentanyl Citrate (Fentanyl 2ml Vial) 50 mcg 1X ONCE IV Last administered on 03:03; Start 05/08/17 at 03:30; Stop 05/08/17 at 03:31; Status DC Ondansetron HCl (Zofran) 4 mg PRN Q8HRS PRN IV NAUSEA/VOMITING; Start 05/08/17 at 04:15; Stop 05/08/17 at 15:43; Status DC Morphine Sulfate 2 mg PRN Q2HR PRN IV SEVERE PAIN Last administered on 11:11; Start 05/08/17 at 04:15; Stop 05/08/17 at 15:43; Status DC Amlodipine Besylate (Norvasc) 10 mg DAILY PO Last administered on 05/08/17 10: 57; Start 05/08/17 at 11:00; Stop 05/09/17 at 10:23; Status DC Cyclobenzaprine HCl (Flexeril) 10 mg PRN TID PRN PO MUSCLE SPASMS; Start at 10:15 Gemfibrozil (Lopid) 600 mg BID PO Last administered on 05/09/17 20:47; Start 05/08/17 at 11:00 Metformin HCl (Glucophage) 500 mg BIDWMEALS PO ; Start 05/10/17 at 08:00 Metoprolol Tartrate (Lopressor) 50 mg BID PO Last administered on 05/09/17 20 :47; Start 05/08/17 at 11:00 Oxycodone/ Acetaminophen (Percocet 5/325) 1 tab PRN Q6HRS PRN PO MODERATE TO SEVERE PAIN Last administered on 05/08/17 21:36; Start 05/08/17 at 10:15 Acetaminophen (Tylenol) 650 mg PRN Q6HRS PRN PO FEVER; Start 05/08/17 at 10:15 Ondansetron HCl (Zofran) 4 mg PRN Q6HRS PRN IV NAUSEA/VOMITING Last administered on 05/09/17 12:21; Start 05/08/17 at 10:15 Morphine Sulfate 2 mg PRN Q2HR PRN IV PAIN; Start 05/08/17 at 10:15; Stop 05/08 at 10:19; Status DC Tramadol HCl (Ultram) 50 mg PRN Q6HRS PRN PO MILD TO MODERATE PAIN Last administered on 05/09/17 10:41; Start 05/08/17 at 10:15 Hydralazine HCl (Apresoline Inj) 10 mg PRN Q4HRS PRN IVP ELEVATED BP, SEE COMMENTS; Start 05/08/17 at 10:15 Docusate Sodium (Colace) 100 mg PRN DAILY PRN PO CONSTIPATION Last administered on 05/08/17 15:46; Start 05/08/17 at 10:15 Insulin Aspart (NovoLOG) 0-9 UNITS TIDWMEALS SQ ; Start 05/08/17 at 12:00 Dextrose (Dextrose 50%-Water Syringe) 12.5 gm PRN Q15MIN PRN IV SEE COMMENTS; Start 05/08/17 at 10:15 Pantoprazole Sodium (Protonix Vial) 40 mg BID IVP Last administered on 10:54; Start 05/08/17 at 11:00; Stop 05/08/17 at 12:48; Status DC Morphine Sulfate 2 mg PRN Q2HR PRN IV PAIN Last administered on 05/08/17 15:47 ; Start 05/08/17 at 10:30 Nicotine (Nicoderm Cq 14mg) 1 patch PRN DAILY PRN TD SMOKING CESSATION Last administered on 05/08/17 11:20; Start 05/08/17 at 10:30 Pantoprazole Sodium (Protonix) 40 mg BIDAC PO Last administered on 05/09/17 16:57; Start 05/08/17 at 16:30 Sodium Chloride 1,000 ml @ 100 mls/hr Q10H IV Last administered on 05/10/17 08:31; Start 05/08/17 at 15:45 Potassium Chloride (Klor-Con) 40 meq 1X ONCE PO Last administered on 10:10; Start 05/09/17 at 10:00; Stop 05/09/17 at 10:01; Status DC Amlodipine Besylate (Norvasc) 5 mg DAILY PO ; Start 05/10/17 at 09:00 Amlodipine Besylate (Norvasc) 5 mg 1X ONCE PO Last administered on 05/09/17 10:42; Start 05/09/17 at 11:00; Stop 05/09/17 at 11:01; Status DC Active Scripts Active Oxycodone-Acetaminophen 5-325 (Oxycodone Hcl/Acetaminophen) 1 Each Tablet 1 Each PO PRN Q6HRS PRN Oxycodone-Acetaminophen 5-325 (Oxycodone Hcl/Acetaminophen) 1 Each Tablet 1 Tab PO PRN Q4HRS PRN Reported Klor-Con M20 (Potassium Chloride) 20 Meq Tab.er.prt 1 Tab PO DAILY Hydrochlorothiazide Tablet (Hydrochlorothiazide) 25 Mg Tablet 25 Mg PO DAILY Percocet 7.5-325 Mg Tablet (Oxycodone/Acetaminophen) 1 Each Tablet 1 Tab PO PRN Q4HRS PRN Amlodipine Besylate 10 Mg Tablet 10 Mg PO DAILY Cyclobenzaprine Hcl 10 Mg Tablet 10 Mg PO TID PRN Metoprolol Tartrate 50 Mg Tablet 1 Tab PO BID Gemfibrozil 600 Mg Tablet 600 Mg PO BID Metformin Hcl 500 Mg Tablet 1 Tab PO BID Vitals/I & O Vital Sign - Last 24 Hours 05/09/17 05/09/17 05/09/17 05/09/17 10:41 10:42 11:04 11:43 Temp 97.7 97.7 Pulse 56 56 Resp 16 B/P (MAP) 143/80 143/80 (101) Pulse Ox 90 98 98 O2 Delivery Nasal Cannula Room Air Nasal Cannula O2 Flow Rate 2.0 2.0 05/09/17 05/09/17 05/09/17 05/09/17 14:52 19:29 19:46 20:47 Temp 98.8 98.1 98.8 98.1 Pulse 62 62 62 Resp 16 14 B/P (MAP) 146/76 (99) 162/79 (106) 162/79 Pulse Ox 92 98 O2 Delivery Room Air Room Air Nasal Cannula O2 Flow Rate 2.0 05/09/17 05/10/17 05/10/17 05/10/17 22:46 03:45 08:00 08:00 Temp 97.9 97.9 97.8 97.9 97.9 97.8 Pulse 57 60 51 Resp 15 17 20 B/P (MAP) 149/59 (89) 148/61 (90) 159/78 (105) Pulse Ox 93 92 92 O2 Delivery Room Air Room Air Room Air Room Air Intake and Output 05/10/17 05/10/17 05/11/17 15:00 23:00 07:00 Intake Total 0 ml Balance 0 ml TERMULO,MAYDA Y MD May 10, 2017 10:40
[2017-05-10] MEDS ORDERED: fentaNYL PF VIAL 100 MCG/2 ML VIAL IV PRN (10:45)
[2017-05-10 10:58] LABS: % SAT IRON 20 % (15-34); IRON,SERUM 59 ug/dL (50-170)
--- NOTE | 2017-05-10 11:56 | PDOC ---
SURGICAL PROGRESS NOTE Subjective just back from MRCP no new complaints Vital Signs Vital Signs Date Time Temp Pulse Resp B/P (MAP) Pulse Ox O2 Delivery O2 Flow Rate FiO2 05/10/17 08:00 97.8 51 20 159/78 (105) 92 Room Air 97.8 05/09/17 19:46 2.0 I&O Intake and Output 05/11/17 07:00 Intake Total 0 ml Balance 0 ml Intake Oral 0 ml PATIENT HAS A LUCERO: No General: Alert, Oriented X3, No acute distress Abdomen: Soft Labs Laboratory Tests Test 05/08/17 13:05 05/08/17 15:00 05/08/17 16:12 05/08/17 19:09 Cytomegalovirus IgG Antibody 8.10 U/mL (0.00-0.59) Cytomegalovirus IgM Antibody <30.0 AU/mL (0.0-29.9) Lashawn-Santos Virus Capsid Ag IgG Ab 156.0 U/mL (0.0-17.9) Lashawn-Santos Virus Capsid Ag IgM Ab <36.0 U/mL (0.0-35.9) Lashawn-Santos Early Antigen IgG Ab <9.0 U/mL (0.0-8.9) Lashawn-Santos Nuc Assoc Ag IgG Index 440.0 U/mL (0.0-17.9) Lashawn-Santos Virus Interpretation Comment (.) Hepatitis A IgM Antibody Negative (Negative) Hepatitis B Surface Antigen Negative (Negative) Hepatitis B Core IgM Antibody Negative (Negative) Hepatitis C Antibody 0.1 s/co ratio (0.0-0.9) Urine Opiates Screen Pos (NEG) Urine Methadone Screen Neg (NEG) Urine Barbiturates Neg (NEG) Urine Phencyclidine Screen Neg (NEG) Urine Amphetamine/Methamphetamine Neg (NEG) Urine Benzodiazepines Screen Pos (NEG) Urine Cocaine Screen Pos (NEG) Urine Cannabinoids Screen Neg (NEG) Urine Ethyl Alcohol Neg (NEG) Glucose (Fingerstick) 107 mg/dL (70-99) 114 mg/dL (70-99) Test 05/09/17 03:45 05/09/17 07:55 05/09/17 11:54 05/09/17 16:45 White Blood Count 4.3 x10^3/uL (4.0-11.0) Red Blood Count 5.18 x10^6/uL (3.50-5.40) Hemoglobin 12.0 g/dL (12.0-15.5) Hematocrit 38.4 % (36.0-47.0) Mean Corpuscular Volume 74 fL (79-100) Mean Corpuscular Hemoglobin 23 pg (25-35) Mean Corpuscular Hemoglobin Concent 31 g/dL (31-37) Red Cell Distribution Width 16.6 % (11.5-14.5) Platelet Count 301 x10^3/uL (140-400) Neutrophils (%) (Auto) 37 % (31-73) Lymphocytes (%) (Auto) 54 % (24-48) Monocytes (%) (Auto) 7 % (0-9) Eosinophils (%) (Auto) 3 % (0-3) Basophils (%) (Auto) 0 % (0-3) Neutrophils # (Auto) 1.6 x10^3uL (1.8-7.7) Lymphocytes # (Auto) 2.3 x10^3/uL (1.0-4.8) Monocytes # (Auto) 0.3 x10^3/uL (0.0-1.1) Eosinophils # (Auto) 0.1 x10^3/uL (0.0-0.7) Basophils # (Auto) 0.0 x10^3/uL (0.0-0.2) Sodium Level 142 mmol/L (136-145) Potassium Level 3.1 mmol/L (3.5-5.1) Chloride Level 103 mmol/L (98-107) Carbon Dioxide Level 32 mmol/L (21-32) Anion Gap 7 (6-14) Blood Urea Nitrogen 15 mg/dL (7-20) Creatinine 1.0 mg/dL (0.6-1.0) Estimated GFR (Cockcroft-Gault) 68.7 Glucose Level 117 mg/dL (70-99) Calcium Level 8.9 mg/dL (8.5-10.1) Total Bilirubin 0.8 mg/dL (0.2-1.0) Direct Bilirubin 0.2 mg/dL (0.0-0.2) Aspartate Amino Transf (AST/SGOT) 286 U/L (15-37) Alanine Aminotransferase (ALT/SGPT) 337 U/L (14-59) Alkaline Phosphatase 180 U/L (46-116) Total Protein 7.2 g/dL (6.4-8.2) Albumin 3.1 g/dL (3.4-5.0) Thyroid Stimulating Hormone (TSH) 3.653 uIU/mL (0.358-3.74) Glucose (Fingerstick) 108 mg/dL (70-99) 107 mg/dL (70-99) 104 mg/dL (70-99) Test 05/10/17 04:14 05/10/17 05:00 05/10/17 07:34 Sodium Level 140 mmol/L (136-145) Potassium Level 3.2 mmol/L (3.5-5.1) Chloride Level 104 mmol/L (98-107) Carbon Dioxide Level 30 mmol/L (21-32) Anion Gap 6 (6-14) Blood Urea Nitrogen 7 mg/dL (7-20) Creatinine 0.9 mg/dL (0.6-1.0) Estimated GFR (Cockcroft-Gault) 77.5 Glucose Level 111 mg/dL (70-99) Calcium Level 9.0 mg/dL (8.5-10.1) Iron Level 59 ug/dL (50-170) Total Iron Binding Capacity 302 ug/dL (250-450) Iron Saturation 20 % (15-34) Total Bilirubin 0.7 mg/dL (0.2-1.0) Direct Bilirubin 0.2 mg/dL (0.0-0.2) Aspartate Amino Transf (AST/SGOT) 107 U/L (15-37) Alanine Aminotransferase (ALT/SGPT) 219 U/L (14-59) Alkaline Phosphatase 158 U/L (46-116) Total Protein 7.1 g/dL (6.4-8.2) Albumin 3.1 g/dL (3.4-5.0) White Blood Count 4.0 x10^3/uL (4.0-11.0) Red Blood Count 5.23 x10^6/uL (3.50-5.40) Hemoglobin 12.1 g/dL (12.0-15.5) Hematocrit 38.3 % (36.0-47.0) Mean Corpuscular Volume 73 fL (79-100) Mean Corpuscular Hemoglobin 23 pg (25-35) Mean Corpuscular Hemoglobin Concent 32 g/dL (31-37) Red Cell Distribution Width 16.5 % (11.5-14.5) Platelet Count 297 x10^3/uL (140-400) Neutrophils (%) (Auto) 33 % (31-73) Lymphocytes (%) (Auto) 55 % (24-48) Monocytes (%) (Auto) 9 % (0-9) Eosinophils (%) (Auto) 3 % (0-3) Basophils (%) (Auto) 0 % (0-3) Neutrophils # (Auto) 1.3 x10^3uL (1.8-7.7) Lymphocytes # (Auto) 2.2 x10^3/uL (1.0-4.8) Monocytes # (Auto) 0.4 x10^3/uL (0.0-1.1) Eosinophils # (Auto) 0.1 x10^3/uL (0.0-0.7) Basophils # (Auto) 0.0 x10^3/uL (0.0-0.2) Glucose (Fingerstick) 106 mg/dL (70-99) Laboratory Tests Test 05/09/17 16:45 05/10/17 04:14 05/10/17 05:00 05/10/17 07:34 Glucose (Fingerstick) 104 mg/dL (70-99) 106 mg/dL (70-99) Sodium Level 140 mmol/L (136-145) Potassium Level 3.2 mmol/L (3.5-5.1) Chloride Level 104 mmol/L (98-107) Carbon Dioxide Level 30 mmol/L (21-32) Anion Gap 6 (6-14) Blood Urea Nitrogen 7 mg/dL (7-20) Creatinine 0.9 mg/dL (0.6-1.0) Estimated GFR (Cockcroft-Gault) 77.5 Glucose Level 111 mg/dL (70-99) Calcium Level 9.0 mg/dL (8.5-10.1) Iron Level 59 ug/dL (50-170) Total Iron Binding Capacity 302 ug/dL (250-450) Iron Saturation 20 % (15-34) Total Bilirubin 0.7 mg/dL (0.2-1.0) Direct Bilirubin 0.2 mg/dL (0.0-0.2) Aspartate Amino Transf (AST/SGOT) 107 U/L (15-37) Alanine Aminotransferase (ALT/SGPT) 219 U/L (14-59) Alkaline Phosphatase 158 U/L (46-116) Total Protein 7.1 g/dL (6.4-8.2) Albumin 3.1 g/dL (3.4-5.0) White Blood Count 4.0 x10^3/uL (4.0-11.0) Red Blood Count 5.23 x10^6/uL (3.50-5.40) Hemoglobin 12.1 g/dL (12.0-15.5) Hematocrit 38.3 % (36.0-47.0) Mean Corpuscular Volume 73 fL (79-100) Mean Corpuscular Hemoglobin 23 pg (25-35) Mean Corpuscular Hemoglobin Concent 32 g/dL (31-37) Red Cell Distribution Width 16.5 % (11.5-14.5) Platelet Count 297 x10^3/uL (140-400) Neutrophils (%) (Auto) 33 % (31-73) Lymphocytes (%) (Auto) 55 % (24-48) Monocytes (%) (Auto) 9 % (0-9) Eosinophils (%) (Auto) 3 % (0-3) Basophils (%) (Auto) 0 % (0-3) Neutrophils # (Auto) 1.3 x10^3uL (1.8-7.7) Lymphocytes # (Auto) 2.2 x10^3/uL (1.0-4.8) Monocytes # (Auto) 0.4 x10^3/uL (0.0-1.1) Eosinophils # (Auto) 0.1 x10^3/uL (0.0-0.7) Basophils # (Auto) 0.0 x10^3/uL (0.0-0.2) Problem List Problems Medical Problems: (1) Abdominal pain Status: Acute (2) Nausea and vomiting Status: Acute Assessment/Plan stones/sludge MRCP results PND no new surgical recs Problems: VALERY MONROY MD May 10, 2017 11:56
[2017-05-10 13:00] VITALS: BP 169/82
[2017-05-10] MEDS: oxyCODONE/APAP 5/325 1 TAB TABLET PO PRN ×2 (13:06→22:26)
[2017-05-10] MEDS: GEMFIBROZIL 600 MG TABLET. PO SCH ×2 (13:06→20:34)
[2017-05-10] MEDS: METOPROLOL TART IMMED RELEASE 50 MG TABLET. PO SCH ×2 (13:07→20:34)
[2017-05-10] MEDS: amLODIPine BESYLATE 5 MG TABLET PO SCH (13:08)
--- NOTE | 2017-05-10 13:18 | RAD ---
EXAM: MRCP without contrast. HISTORY: Abdominal pain and nausea. TECHNIQUE: Multiplanar and multisequence magnetic resonance imaging of the abdomen was performed according to MRCP protocol. Three-dimensional and two-dimensional images were obtained. COMPARISON: CT and abdomen sonogram dated 05/08/2017. FINDINGS: There is hepatic steatosis. The liver is normal in size. There are 9 mm and 10 mm 2 hyperintense lesions within the right hepatic lobe, the larger of which appears to be a cyst and a smaller which may be a hemangioma. There is cholelithiasis. The gallbladder is slightly distended. There is trace pericholecystic fluid. The common bile duct is slightly dilated for patient age. There is narrowing of the distal common bile duct slightly proximal to the ampulla which is likely physiologic. This is not clearly within limits to suggest a stricture or the presence of an intraductal stone. No pancreatic lesion is seen. There is suggestion of slight irregular pancreatic ductal caliber within the pancreatic body which is not seen on all images and likely artifactual rather than due to the sequela of chronic pancreatitis. There may be a tiny cyst or hemangioma within an otherwise unremarkable spleen. There is a tiny splenule inferior to the spleen. The adrenal glands are unremarkable. The kidneys are normal in size. There is no hydronephrosis. There are suspected 2 mm right renal cysts. There is colonic diverticulosis. There is degenerative change within the visualized thoracic and lumbar spine. There is a small hiatal hernia. The heart is upper normal in size. IMPRESSION: 1. Slightly distended gallbladder containing multiple dependent stones. Given trace pericholecystic fluid, the possibility of cholecystitis is not excluded. The common bile duct is slightly dilated for patient age and there is tapering of the distal duct proximal to the ampulla which appears to be within physiologic limits. No convincing stricture or ductal stone is seen. 2. Mild hepatic steatosis. 3. 10 mm and 9 mm T2 hyperintense lesions within the liver, the larger of which is likely a cyst and a smaller which may be a hemangioma. This can be better characterized with postcontrast imaging if clinically indicated. 4. Small hiatal hernia. 5. Colonic diverticulosis.
[2017-05-10 15:00] VITALS: BP 169/90
[2017-05-10] MEDS: ONDANSETRON PF 4 MG/2 ML VIAL. IV PRN (17:23)
[2017-05-10 19:00] VITALS: BP 141/64
[2017-05-10] MEDS: DOCUSATE SODIUM 100 MG CAPSULE. PO PRN (22:25)
[2017-05-10] MEDS: traMADol 50 MG TABLET PO PRN (22:26)
[2017-05-10 23:00] VITALS: BP 146/68
[2017-05-11 03:00] VITALS: BP 155/76
[2017-05-11] MEDS: IV NORMAL SALINE 1000ML BAG 1,000 ML IV SCH ×3 (03:45→22:29)
[2017-05-11] MEDS: NICOTINE 14MG PATCH. TD PRN (03:47)
[2017-05-11 07:00] VITALS: BP 165/84
[2017-05-11] MEDS: metFORMIN 500 MG TABLET PO SCH ×2 (08:00→16:47)
[2017-05-11] MEDS: INSULIN ASPART 300 UNITS/3 ML INSULN.PEN SQ SCH ×3 (08:00→16:45)
[2017-05-11] MEDS: GEMFIBROZIL 600 MG TABLET. PO SCH ×2 (09:42→21:00)
[2017-05-11] MEDS: PANTOPRAZOLE 40 MG TABLET.DR. PO SCH ×2 (09:42→16:41)
[2017-05-11] MEDS: METOPROLOL TART IMMED RELEASE 50 MG TABLET. PO SCH ×2 (09:43→21:00)
[2017-05-11] MEDS: amLODIPine BESYLATE 5 MG TABLET PO SCH (09:45)
--- NOTE | 2017-05-11 10:59 | PDOC ---
G I PROGRESS NOTE Subjective Bloating, nausea pc. Physical Exam Lungs clear. RRR Abdomen soft, not particularly tender. Review of Relevant I have reviewed the following items jewel (where applicable) has been applied. Labs Laboratory Tests Test 05/09/17 11:54 05/09/17 16:45 05/10/17 04:14 05/10/17 05:00 Glucose (Fingerstick) 107 mg/dL (70-99) 104 mg/dL (70-99) Sodium Level 140 mmol/L (136-145) Potassium Level 3.2 mmol/L (3.5-5.1) Chloride Level 104 mmol/L (98-107) Carbon Dioxide Level 30 mmol/L (21-32) Anion Gap 6 (6-14) Blood Urea Nitrogen 7 mg/dL (7-20) Creatinine 0.9 mg/dL (0.6-1.0) Estimated GFR (Cockcroft-Gault) 77.5 Glucose Level 111 mg/dL (70-99) Calcium Level 9.0 mg/dL (8.5-10.1) Iron Level 59 ug/dL (50-170) Total Iron Binding Capacity 302 ug/dL (250-450) Iron Saturation 20 % (15-34) Total Bilirubin 0.7 mg/dL (0.2-1.0) Direct Bilirubin 0.2 mg/dL (0.0-0.2) Aspartate Amino Transf (AST/SGOT) 107 U/L (15-37) Alanine Aminotransferase (ALT/SGPT) 219 U/L (14-59) Alkaline Phosphatase 158 U/L (46-116) Total Protein 7.1 g/dL (6.4-8.2) Albumin 3.1 g/dL (3.4-5.0) White Blood Count 4.0 x10^3/uL (4.0-11.0) Red Blood Count 5.23 x10^6/uL (3.50-5.40) Hemoglobin 12.1 g/dL (12.0-15.5) Hematocrit 38.3 % (36.0-47.0) Mean Corpuscular Volume 73 fL (79-100) Mean Corpuscular Hemoglobin 23 pg (25-35) Mean Corpuscular Hemoglobin Concent 32 g/dL (31-37) Red Cell Distribution Width 16.5 % (11.5-14.5) Platelet Count 297 x10^3/uL (140-400) Neutrophils (%) (Auto) 33 % (31-73) Lymphocytes (%) (Auto) 55 % (24-48) Monocytes (%) (Auto) 9 % (0-9) Eosinophils (%) (Auto) 3 % (0-3) Basophils (%) (Auto) 0 % (0-3) Neutrophils # (Auto) 1.3 x10^3uL (1.8-7.7) Lymphocytes # (Auto) 2.2 x10^3/uL (1.0-4.8) Monocytes # (Auto) 0.4 x10^3/uL (0.0-1.1) Eosinophils # (Auto) 0.1 x10^3/uL (0.0-0.7) Basophils # (Auto) 0.0 x10^3/uL (0.0-0.2) Test 05/10/17 07:34 05/10/17 13:49 05/10/17 16:49 05/10/17 21:00 Glucose (Fingerstick) 106 mg/dL (70-99) 112 mg/dL (70-99) 104 mg/dL (70-99) 90 mg/dL (70-99) Test 05/11/17 07:21 Glucose (Fingerstick) 98 mg/dL (70-99) Laboratory Tests Test 05/10/17 13:49 05/10/17 16:49 05/10/17 21:00 05/11/17 07:21 Glucose (Fingerstick) 112 mg/dL (70-99) 104 mg/dL (70-99) 90 mg/dL (70-99) 98 mg/dL (70-99) Iron studies OK--thalassemia? Now with relative lymphocytosis. Medications Current Medications Ondansetron HCl (Zofran) 4 mg 1X ONCE IV Last administered on 05/08/17 02:03 ; Start 05/08/17 at 02:15; Stop 05/08/17 at 02:17; Status DC Fentanyl Citrate (Fentanyl 2ml Vial) 50 mcg 1X ONCE IV Last administered on 02:03; Start 05/08/17 at 02:15; Stop 05/08/17 at 02:17; Status DC Iohexol (Omnipaque 300 Mg/ml) 75 ml 1X ONCE IV Last administered on 05/08/17 02:44; Start 05/08/17 at 03:00; Stop 05/08/17 at 03:01; Status DC Info (Do NOT chart on this entry -- for MONITORING) 1 each PRN DAILY PRN MC SEE COMMENTS; Start 05/08/17 at 02:30; Stop 05/10/17 at 02:29; Status DC Famotidine (Pepcid) 20 mg 1X ONCE IVP Last administered on 05/08/17 03:03; Start 05/08/17 at 03:30; Stop 05/08/17 at 03:31; Status DC Fentanyl Citrate (Fentanyl 2ml Vial) 50 mcg 1X ONCE IV Last administered on 03:03; Start 05/08/17 at 03:30; Stop 05/08/17 at 03:31; Status DC Ondansetron HCl (Zofran) 4 mg PRN Q8HRS PRN IV NAUSEA/VOMITING; Start 05/08/17 at 04:15; Stop 05/08/17 at 15:43; Status DC Morphine Sulfate 2 mg PRN Q2HR PRN IV SEVERE PAIN Last administered on 11:11; Start 05/08/17 at 04:15; Stop 05/08/17 at 15:43; Status DC Amlodipine Besylate (Norvasc) 10 mg DAILY PO Last administered on 05/08/17 10: 57; Start 05/08/17 at 11:00; Stop 05/09/17 at 10:23; Status DC Cyclobenzaprine HCl (Flexeril) 10 mg PRN TID PRN PO MUSCLE SPASMS; Start at 10:15 Gemfibrozil (Lopid) 600 mg BID PO Last administered on 05/11/17 09:42; Start 05/08/17 at 11:00 Metformin HCl (Glucophage) 500 mg BIDWMEALS PO Last administered on 05/10/17 17:21; Start 05/10/17 at 08:00 Metoprolol Tartrate (Lopressor) 50 mg BID PO Last administered on 05/11/17 09 :43; Start 05/08/17 at 11:00 Oxycodone/ Acetaminophen (Percocet 5/325) 1 tab PRN Q6HRS PRN PO MODERATE TO SEVERE PAIN Last administered on 05/10/17 22:26; Start 05/08/17 at 10:15 Acetaminophen (Tylenol) 650 mg PRN Q6HRS PRN PO FEVER; Start 05/08/17 at 10:15 Ondansetron HCl (Zofran) 4 mg PRN Q6HRS PRN IV NAUSEA/VOMITING Last administered on 05/10/17 17:23; Start 05/08/17 at 10:15 Morphine Sulfate 2 mg PRN Q2HR PRN IV PAIN; Start 05/08/17 at 10:15; Stop 05/08 at 10:19; Status DC Tramadol HCl (Ultram) 50 mg PRN Q6HRS PRN PO MILD TO MODERATE PAIN Last administered on 05/10/17 22:26; Start 05/08/17 at 10:15 Hydralazine HCl (Apresoline Inj) 10 mg PRN Q4HRS PRN IVP ELEVATED BP, SEE COMMENTS; Start 05/08/17 at 10:15 Docusate Sodium (Colace) 100 mg PRN DAILY PRN PO CONSTIPATION Last administered on 05/10/17 22:25; Start 05/08/17 at 10:15 Insulin Aspart (NovoLOG) 0-9 UNITS TIDWMEALS SQ ; Start 05/08/17 at 12:00 Dextrose (Dextrose 50%-Water Syringe) 12.5 gm PRN Q15MIN PRN IV SEE COMMENTS; Start 05/08/17 at 10:15 Pantoprazole Sodium (Protonix Vial) 40 mg BID IVP Last administered on 10:54; Start 05/08/17 at 11:00; Stop 05/08/17 at 12:48; Status DC Morphine Sulfate 2 mg PRN Q2HR PRN IV PAIN Last administered on 05/08/17 15:47 ; Start 05/08/17 at 10:30 Nicotine (Nicoderm Cq 14mg) 1 patch PRN DAILY PRN TD SMOKING CESSATION Last administered on 05/11/17 03:47; Start 05/08/17 at 10:30 Pantoprazole Sodium (Protonix) 40 mg BIDAC PO Last administered on 05/11/17 09:42; Start 05/08/17 at 16:30 Sodium Chloride 1,000 ml @ 100 mls/hr Q10H IV Last administered on 05/11/17 09:52; Start 05/08/17 at 15:45 Potassium Chloride (Klor-Con) 40 meq 1X ONCE PO Last administered on 10:10; Start 05/09/17 at 10:00; Stop 05/09/17 at 10:01; Status DC Amlodipine Besylate (Norvasc) 5 mg DAILY PO Last administered on 05/11/17 09: 45; Start 05/10/17 at 09:00 Amlodipine Besylate (Norvasc) 5 mg 1X ONCE PO Last administered on 05/09/17 10:42; Start 05/09/17 at 11:00; Stop 05/09/17 at 11:01; Status DC Fentanyl Citrate (Fentanyl 2ml Vial) 50 mcg PRN Q2HR PRN IV PAIN; Start at 10:45 Active Scripts Active Oxycodone-Acetaminophen 5-325 (Oxycodone Hcl/Acetaminophen) 1 Each Tablet 1 Each PO PRN Q6HRS PRN Oxycodone-Acetaminophen 5-325 (Oxycodone Hcl/Acetaminophen) 1 Each Tablet 1 Tab PO PRN Q4HRS PRN Reported Klor-Con M20 (Potassium Chloride) 20 Meq Tab.er.prt 1 Tab PO DAILY Hydrochlorothiazide Tablet (Hydrochlorothiazide) 25 Mg Tablet 25 Mg PO DAILY Percocet 7.5-325 Mg Tablet (Oxycodone/Acetaminophen) 1 Each Tablet 1 Tab PO PRN Q4HRS PRN Amlodipine Besylate 10 Mg Tablet 10 Mg PO DAILY Cyclobenzaprine Hcl 10 Mg Tablet 10 Mg PO TID PRN Metoprolol Tartrate 50 Mg Tablet 1 Tab PO BID Gemfibrozil 600 Mg Tablet 600 Mg PO BID Metformin Hcl 500 Mg Tablet 1 Tab PO BID Vitals/I & O Vital Sign - Last 24 Hours 05/10/17 05/10/17 05/10/17 05/10/17 13:00 13:06 13:07 13:08 Temp 98.0 98.0 Pulse 54 54 54 Resp 20 20 B/P (MAP) 169/82 (111) 169/82 169/82 Pulse Ox 94 94 O2 Delivery Room Air Room Air 05/10/17 05/10/17 05/10/17 05/10/17 15:00 19:00 20:00 20:34 Temp 97.9 97.5 97.9 97.5 Pulse 56 53 53 Resp 20 18 B/P (MAP) 169/90 (116) 141/64 (89) 141/64 Pulse Ox 92 96 O2 Delivery Room Air Room Air 05/10/17 05/10/17 05/10/17 05/10/17 22:26 22:26 23:00 23:30 Temp 97.8 97.8 Pulse 54 Resp 17 17 16 16 B/P (MAP) 146/68 (94) Pulse Ox 96 96 92 92 O2 Delivery Room Air Room Air Room Air 05/10/17 05/11/17 05/11/17 05/11/17 23:30 03:00 07:00 08:00 Temp 97.8 97.9 97.8 97.9 Pulse 58 58 Resp 16 16 18 B/P (MAP) 155/76 (102) 165/84 (111) Pulse Ox 92 92 96 O2 Delivery Room Air Room Air Room Air 05/11/17 05/11/17 09:43 09:45 Pulse 58 58 B/P (MAP) 165/84 165/84 Intake and Output 05/11/17 05/11/17 05/12/17 15:00 23:00 07:00 Intake Total 300 ml Output Total 750 ml Balance -450 ml Images On MRI/MRCP: IMPRESSION: 1. Slightly distended gallbladder containing multiple dependent stones. Given trace pericholecystic fluid, the possibility of cholecystitis is not excluded. The common bile duct is slightly dilated for patient age and there is tapering of the distal duct proximal to the ampulla which appears to be within physiologic limits. No convincing stricture or ductal stone is seen. 2. Mild hepatic steatosis. 3. 10 mm and 9 mm T2 hyperintense lesions within the liver, the larger of which is likely a cyst and a smaller which may be a hemangioma. This can be better characterized with postcontrast imaging if clinically indicated. 4. Small hiatal hernia. 5. Colonic diverticulosis. Problem List Problems Medical Problems: (1) Abdominal pain Status: Acute (2) Nausea and vomiting Status: Acute Assessment Gall stones; not clealy the whole issue. Viral syndrome? Usual culprits not present on testing. Plan of Care: Continue current Tx, Mgmt Plan of Care Note Ari[place]na at some point seems reasonable to consider. General support/symptomatic treatment. Continue PPI. LUCIEN POTTER MD May 11, 2017 10:59
[2017-05-11 11:03] VITALS: BP 168/69
--- NOTE | 2017-05-11 12:07 | PDOC ---
PROGRESS NOTES Chief Complaint Chief Complaint GB and CBD stones, SYMPTOMATIC EBV and CNV antigen positive dm2 htn tobaccoism hypokalemia, repl;aced elevated transaminatis, drug abuse with cocaine History of Present Illness History of Present Illness Still abd pain Did not tolerate crackers friday MRCP results in , GB Stones Planned for lap radha tmr EBV and CMV IG Antigen positive CUrently on liquid diet GI and GS both on board PLAn: lap radha tmr NPO post mN Dw her - agrees Vitals Vitals Vital Signs Date Time Temp Pulse Resp B/P (MAP) Pulse Ox O2 Delivery O2 Flow Rate FiO2 05/11/17 11:03 97.9 53 18 168/69 (102) 92 Room Air 97.9 Physical Exam General: Alert, Oriented X3, No acute distress Heart: Regular rate, Normal S1, Normal S2, No murmurs Lungs: Clear Abdomen: Soft Extremities: No clubbing, No cyanosis Skin: No rashes, No breakdown Labs LABS Laboratory Tests Test 05/10/17 13:49 05/10/17 16:49 05/10/17 21:00 05/11/17 07:21 Glucose (Fingerstick) 112 mg/dL (70-99) 104 mg/dL (70-99) 90 mg/dL (70-99) 98 mg/dL (70-99) Test 05/11/17 10:42 Glucose (Fingerstick) 116 mg/dL (70-99) Review of Systems Review of Systems abd pain, nausea, no emesis, no fevers Assessment and Plan Assessmemt and Plan Problems Medical Problems: (1) Abdominal pain Status: Acute (2) Nausea and vomiting Status: Acute Problems: Comment Review of Relevant I have reviewed the following items jewel (where applicable) has been applied. Labs Laboratory Tests Test 05/09/17 16:45 05/10/17 04:14 05/10/17 05:00 05/10/17 07:34 Glucose (Fingerstick) 104 mg/dL (70-99) 106 mg/dL (70-99) Sodium Level 140 mmol/L (136-145) Potassium Level 3.2 mmol/L (3.5-5.1) Chloride Level 104 mmol/L (98-107) Carbon Dioxide Level 30 mmol/L (21-32) Anion Gap 6 (6-14) Blood Urea Nitrogen 7 mg/dL (7-20) Creatinine 0.9 mg/dL (0.6-1.0) Estimated GFR (Cockcroft-Gault) 77.5 Glucose Level 111 mg/dL (70-99) Calcium Level 9.0 mg/dL (8.5-10.1) Iron Level 59 ug/dL (50-170) Total Iron Binding Capacity 302 ug/dL (250-450) Iron Saturation 20 % (15-34) Total Bilirubin 0.7 mg/dL (0.2-1.0) Direct Bilirubin 0.2 mg/dL (0.0-0.2) Aspartate Amino Transf (AST/SGOT) 107 U/L (15-37) Alanine Aminotransferase (ALT/SGPT) 219 U/L (14-59) Alkaline Phosphatase 158 U/L (46-116) Total Protein 7.1 g/dL (6.4-8.2) Albumin 3.1 g/dL (3.4-5.0) White Blood Count 4.0 x10^3/uL (4.0-11.0) Red Blood Count 5.23 x10^6/uL (3.50-5.40) Hemoglobin 12.1 g/dL (12.0-15.5) Hematocrit 38.3 % (36.0-47.0) Mean Corpuscular Volume 73 fL (79-100) Mean Corpuscular Hemoglobin 23 pg (25-35) Mean Corpuscular Hemoglobin Concent 32 g/dL (31-37) Red Cell Distribution Width 16.5 % (11.5-14.5) Platelet Count 297 x10^3/uL (140-400) Neutrophils (%) (Auto) 33 % (31-73) Lymphocytes (%) (Auto) 55 % (24-48) Monocytes (%) (Auto) 9 % (0-9) Eosinophils (%) (Auto) 3 % (0-3) Basophils (%) (Auto) 0 % (0-3) Neutrophils # (Auto) 1.3 x10^3uL (1.8-7.7) Lymphocytes # (Auto) 2.2 x10^3/uL (1.0-4.8) Monocytes # (Auto) 0.4 x10^3/uL (0.0-1.1) Eosinophils # (Auto) 0.1 x10^3/uL (0.0-0.7) Basophils # (Auto) 0.0 x10^3/uL (0.0-0.2) Test 05/10/17 13:49 05/10/17 16:49 05/10/17 21:00 05/11/17 07:21 Glucose (Fingerstick) 112 mg/dL (70-99) 104 mg/dL (70-99) 90 mg/dL (70-99) 98 mg/dL (70-99) Test 05/11/17 10:42 Glucose (Fingerstick) 116 mg/dL (70-99) Laboratory Tests Test 05/10/17 13:49 05/10/17 16:49 05/10/17 21:00 05/11/17 07:21 Glucose (Fingerstick) 112 mg/dL (70-99) 104 mg/dL (70-99) 90 mg/dL (70-99) 98 mg/dL (70-99) Test 05/11/17 10:42 Glucose (Fingerstick) 116 mg/dL (70-99) Medications Current Medications Ondansetron HCl (Zofran) 4 mg 1X ONCE IV Last administered on 05/08/17 02:03 ; Start 05/08/17 at 02:15; Stop 05/08/17 at 02:17; Status DC Fentanyl Citrate (Fentanyl 2ml Vial) 50 mcg 1X ONCE IV Last administered on 02:03; Start 05/08/17 at 02:15; Stop 05/08/17 at 02:17; Status DC Iohexol (Omnipaque 300 Mg/ml) 75 ml 1X ONCE IV Last administered on 05/08/17 02:44; Start 05/08/17 at 03:00; Stop 05/08/17 at 03:01; Status DC Info (Do NOT chart on this entry -- for MONITORING) 1 each PRN DAILY PRN MC SEE COMMENTS; Start 05/08/17 at 02:30; Stop 05/10/17 at 02:29; Status DC Famotidine (Pepcid) 20 mg 1X ONCE IVP Last administered on 05/08/17 03:03; Start 05/08/17 at 03:30; Stop 05/08/17 at 03:31; Status DC Fentanyl Citrate (Fentanyl 2ml Vial) 50 mcg 1X ONCE IV Last administered on 03:03; Start 05/08/17 at 03:30; Stop 05/08/17 at 03:31; Status DC Ondansetron HCl (Zofran) 4 mg PRN Q8HRS PRN IV NAUSEA/VOMITING; Start 05/08/17 at 04:15; Stop 05/08/17 at 15:43; Status DC Morphine Sulfate 2 mg PRN Q2HR PRN IV SEVERE PAIN Last administered on 11:11; Start 05/08/17 at 04:15; Stop 05/08/17 at 15:43; Status DC Amlodipine Besylate (Norvasc) 10 mg DAILY PO Last administered on 05/08/17 10: 57; Start 05/08/17 at 11:00; Stop 05/09/17 at 10:23; Status DC Cyclobenzaprine HCl (Flexeril) 10 mg PRN TID PRN PO MUSCLE SPASMS; Start at 10:15 Gemfibrozil (Lopid) 600 mg BID PO Last administered on 05/11/17 09:42; Start 05/08/17 at 11:00 Metformin HCl (Glucophage) 500 mg BIDWMEALS PO Last administered on 05/10/17 17:21; Start 05/10/17 at 08:00 Metoprolol Tartrate (Lopressor) 50 mg BID PO Last administered on 05/11/17 09 :43; Start 05/08/17 at 11:00 Oxycodone/ Acetaminophen (Percocet 5/325) 1 tab PRN Q6HRS PRN PO MODERATE TO SEVERE PAIN Last administered on 05/10/17 22:26; Start 05/08/17 at 10:15 Acetaminophen (Tylenol) 650 mg PRN Q6HRS PRN PO FEVER; Start 05/08/17 at 10:15 Ondansetron HCl (Zofran) 4 mg PRN Q6HRS PRN IV NAUSEA/VOMITING Last administered on 05/10/17 17:23; Start 05/08/17 at 10:15 Morphine Sulfate 2 mg PRN Q2HR PRN IV PAIN; Start 05/08/17 at 10:15; Stop 05/08 at 10:19; Status DC Tramadol HCl (Ultram) 50 mg PRN Q6HRS PRN PO MILD TO MODERATE PAIN Last administered on 05/10/17 22:26; Start 05/08/17 at 10:15 Hydralazine HCl (Apresoline Inj) 10 mg PRN Q4HRS PRN IVP ELEVATED BP, SEE COMMENTS; Start 05/08/17 at 10:15 Docusate Sodium (Colace) 100 mg PRN DAILY PRN PO CONSTIPATION Last administered on 05/10/17 22:25; Start 05/08/17 at 10:15 Insulin Aspart (NovoLOG) 0-9 UNITS TIDWMEALS SQ ; Start 05/08/17 at 12:00 Dextrose (Dextrose 50%-Water Syringe) 12.5 gm PRN Q15MIN PRN IV SEE COMMENTS; Start 05/08/17 at 10:15 Pantoprazole Sodium (Protonix Vial) 40 mg BID IVP Last administered on 10:54; Start 05/08/17 at 11:00; Stop 05/08/17 at 12:48; Status DC Morphine Sulfate 2 mg PRN Q2HR PRN IV PAIN Last administered on 05/08/17 15:47 ; Start 05/08/17 at 10:30 Nicotine (Nicoderm Cq 14mg) 1 patch PRN DAILY PRN TD SMOKING CESSATION Last administered on 05/11/17 03:47; Start 05/08/17 at 10:30 Pantoprazole Sodium (Protonix) 40 mg BIDAC PO Last administered on 05/11/17 09:42; Start 05/08/17 at 16:30 Sodium Chloride 1,000 ml @ 100 mls/hr Q10H IV Last administered on 05/11/17 09:52; Start 05/08/17 at 15:45 Potassium Chloride (Klor-Con) 40 meq 1X ONCE PO Last administered on 10:10; Start 05/09/17 at 10:00; Stop 05/09/17 at 10:01; Status DC Amlodipine Besylate (Norvasc) 5 mg DAILY PO Last administered on 05/11/17 09: 45; Start 05/10/17 at 09:00 Amlodipine Besylate (Norvasc) 5 mg 1X ONCE PO Last administered on 11/10/17at 10:42; Start 05/09/17 at 11:00; Stop 05/09/17 at 11:01; Status DC Fentanyl Citrate (Fentanyl 2ml Vial) 50 mcg PRN Q2HR PRN IV PAIN; Start at 10:45 Active Scripts Active Oxycodone-Acetaminophen 5-325 (Oxycodone Hcl/Acetaminophen) 1 Each Tablet 1 Each PO PRN Q6HRS PRN Oxycodone-Acetaminophen 5-325 (Oxycodone Hcl/Acetaminophen) 1 Each Tablet 1 Tab PO PRN Q4HRS PRN Reported Klor-Con M20 (Potassium Chloride) 20 Meq Tab.er.prt 1 Tab PO DAILY Hydrochlorothiazide Tablet (Hydrochlorothiazide) 25 Mg Tablet 25 Mg PO DAILY Percocet 7.5-325 Mg Tablet (Oxycodone/Acetaminophen) 1 Each Tablet 1 Tab PO PRN Q4HRS PRN Amlodipine Besylate 10 Mg Tablet 10 Mg PO DAILY Cyclobenzaprine Hcl 10 Mg Tablet 10 Mg PO TID PRN Metoprolol Tartrate 50 Mg Tablet 1 Tab PO BID Gemfibrozil 600 Mg Tablet 600 Mg PO BID Metformin Hcl 500 Mg Tablet 1 Tab PO BID Vitals/I & O Vital Sign - Last 24 Hours 05/10/17 05/10/17 05/10/17 05/10/17 13:00 13:06 13:07 13:08 Temp 98.0 98.0 Pulse 54 54 54 Resp 20 20 B/P (MAP) 169/82 (111) 169/82 169/82 Pulse Ox 94 94 O2 Delivery Room Air Room Air 05/10/17 05/10/17 05/10/17 05/10/17 15:00 19:00 20:00 20:34 Temp 97.9 97.5 97.9 97.5 Pulse 56 53 53 Resp 20 18 B/P (MAP) 169/90 (116) 141/64 (89) 141/64 Pulse Ox 92 96 O2 Delivery Room Air Room Air 05/10/17 05/10/17 05/10/17 05/10/17 22:26 22:26 23:00 23:30 Temp 97.8 97.8 Pulse 54 Resp 17 17 16 16 B/P (MAP) 146/68 (94) Pulse Ox 96 96 92 92 O2 Delivery Room Air Room Air Room Air 05/10/17 05/11/17 05/11/17 05/11/17 23:30 03:00 07:00 08:00 Temp 97.8 97.9 97.8 97.9 Pulse 58 58 Resp 16 16 18 B/P (MAP) 155/76 (102) 165/84 (111) Pulse Ox 92 92 96 O2 Delivery Room Air Room Air Room Air 05/11/17 05/11/17 05/11/17 09:43 09:45 11:03 Temp 97.9 97.9 Pulse 58 58 53 Resp 18 B/P (MAP) 165/84 165/84 168/69 (102) Pulse Ox 92 O2 Delivery Room Air Intake and Output 05/11/17 05/11/17 05/12/17 15:00 23:00 07:00 Intake Total 300 ml Output Total 750 ml Balance -450 ml MAYDA SAM MD May 11, 2017 12:07
[2017-05-11] MEDS: oxyCODONE/APAP 5/325 1 TAB TABLET PO PRN (13:26)
[2017-05-11 15:01] VITALS: BP 146/71
--- NOTE | 2017-05-11 16:04 | PDOC ---
SURGICAL PROGRESS NOTE Subjective no new complaints tolerating full liquids Vital Signs Vital Signs Date Time Temp Pulse Resp B/P (MAP) Pulse Ox O2 Delivery O2 Flow Rate FiO2 05/11/17 15:01 97.8 52 18 146/71 (96) 95 Room Air 97.8 I&O Intake and Output 05/12/17 07:00 Intake Total 600 ml Output Total 750 ml Balance -150 ml Intake Oral 600 ml Output Urine Total 750 ml # Bowel Movements 1 PATIENT HAS A LUCERO: No General: Alert, Oriented X3, No acute distress Abdomen: Soft, No tenderness Labs Laboratory Tests Test 05/09/17 16:45 05/10/17 04:14 05/10/17 05:00 05/10/17 07:34 Glucose (Fingerstick) 104 mg/dL (70-99) 106 mg/dL (70-99) Sodium Level 140 mmol/L (136-145) Potassium Level 3.2 mmol/L (3.5-5.1) Chloride Level 104 mmol/L (98-107) Carbon Dioxide Level 30 mmol/L (21-32) Anion Gap 6 (6-14) Blood Urea Nitrogen 7 mg/dL (7-20) Creatinine 0.9 mg/dL (0.6-1.0) Estimated GFR (Cockcroft-Gault) 77.5 Glucose Level 111 mg/dL (70-99) Calcium Level 9.0 mg/dL (8.5-10.1) Iron Level 59 ug/dL (50-170) Total Iron Binding Capacity 302 ug/dL (250-450) Iron Saturation 20 % (15-34) Total Bilirubin 0.7 mg/dL (0.2-1.0) Direct Bilirubin 0.2 mg/dL (0.0-0.2) Aspartate Amino Transf (AST/SGOT) 107 U/L (15-37) Alanine Aminotransferase (ALT/SGPT) 219 U/L (14-59) Alkaline Phosphatase 158 U/L (46-116) Total Protein 7.1 g/dL (6.4-8.2) Albumin 3.1 g/dL (3.4-5.0) White Blood Count 4.0 x10^3/uL (4.0-11.0) Red Blood Count 5.23 x10^6/uL (3.50-5.40) Hemoglobin 12.1 g/dL (12.0-15.5) Hematocrit 38.3 % (36.0-47.0) Mean Corpuscular Volume 73 fL (79-100) Mean Corpuscular Hemoglobin 23 pg (25-35) Mean Corpuscular Hemoglobin Concent 32 g/dL (31-37) Red Cell Distribution Width 16.5 % (11.5-14.5) Platelet Count 297 x10^3/uL (140-400) Neutrophils (%) (Auto) 33 % (31-73) Lymphocytes (%) (Auto) 55 % (24-48) Monocytes (%) (Auto) 9 % (0-9) Eosinophils (%) (Auto) 3 % (0-3) Basophils (%) (Auto) 0 % (0-3) Neutrophils # (Auto) 1.3 x10^3uL (1.8-7.7) Lymphocytes # (Auto) 2.2 x10^3/uL (1.0-4.8) Monocytes # (Auto) 0.4 x10^3/uL (0.0-1.1) Eosinophils # (Auto) 0.1 x10^3/uL (0.0-0.7) Basophils # (Auto) 0.0 x10^3/uL (0.0-0.2) Test 05/10/17 13:49 05/10/17 16:49 05/10/17 21:00 05/11/17 07:21 Glucose (Fingerstick) 112 mg/dL (70-99) 104 mg/dL (70-99) 90 mg/dL (70-99) 98 mg/dL (70-99) Test 05/11/17 10:42 Glucose (Fingerstick) 116 mg/dL (70-99) Laboratory Tests Test 05/10/17 16:49 05/10/17 21:00 05/11/17 07:21 05/11/17 10:42 Glucose (Fingerstick) 104 mg/dL (70-99) 90 mg/dL (70-99) 98 mg/dL (70-99) 116 mg/dL (70-99) I have reviewed the following MRCP from yesterday reviewed Problem List Problems Medical Problems: (1) Abdominal pain Status: Acute (2) Nausea and vomiting Status: Acute Assessment/Plan symptomatic cholelithiasis for l/s cholecystectomy tomorrow Problems: VALERY MONROY MD May 11, 2017 16:04
[2017-05-11 19:00] VITALS: BP 165/88
[2017-05-11 23:00] VITALS: BP 173/85
[2017-05-12] VITALS (10 sets, daily range): BP systolic 142–183; BP diastolic 76–95
[2017-05-12] MEDS: MORPHINE SULFATE 4 MG/ML DISP.SYRIN. IV PRN ×4 (02:00→17:29)
[2017-05-12] MEDS ORDERED: BUPIVAC MPF-EPI 0.5%-1:200000 30 ML VIAL. ONE (06:34)
[2017-05-12] MEDS ORDERED: SURGICEL HEMOSTAT 4X8 EACH. ONE (06:34)
[2017-05-12] MEDS ORDERED: IOHEXOL 300 MG/ML 50 ML VIAL. ONE (06:34)
[2017-05-12] MEDS: PANTOPRAZOLE 40 MG TABLET.DR. PO SCH ×2 (07:30→17:29)
[2017-05-12] MEDS: INSULIN ASPART 300 UNITS/3 ML INSULN.PEN SQ SCH ×3 (08:00→17:00)
[2017-05-12] MEDS: metFORMIN 500 MG TABLET PO SCH ×2 (08:00→17:29)
[2017-05-12 08:26] LABS: ALBUMIN 3.2 g/dL (3.4-5.0); DIRECT BILIRUBIN 0.1 mg/dL (0.0-0.2); TOTAL BILIRUBIN 0.6 mg/dL (0.2-1.0); TOTAL PROTEIN 7.2 g/dL (6.4-8.2)
[2017-05-12] MEDS: METOPROLOL TART IMMED RELEASE 50 MG TABLET. PO SCH ×2 (08:26→21:23)
[2017-05-12] MEDS: amLODIPine BESYLATE 5 MG TABLET PO SCH (08:27)
[2017-05-12] MEDS: GEMFIBROZIL 600 MG TABLET. PO SCH ×2 (09:00→21:21)
[2017-05-12] MEDS ORDERED: LIDOCAINE 2% PF Vial for OR 5 ML VIAL. ONE (10:18)
[2017-05-12] MEDS ORDERED: DEXAMETHASONE SOD PHOS 20 MG/5 ML VIAL. ONE (10:18)
[2017-05-12] MEDS ORDERED: ONDANSETRON PF 4 MG/2 ML VIAL. ONE (10:18)
[2017-05-12] MEDS ORDERED: MIDAZOLAM HCL/PF 2 MG/2 ML VIAL. ONE (10:18)
[2017-05-12] MEDS ORDERED: ROCURONIUM 50 MG/5 ML VIAL. ONE (10:18)
[2017-05-12] MEDS ORDERED: PROPOFOL 20 ML IV ONE (10:18)
[2017-05-12] MEDS ORDERED: fentaNYL PF VIAL 100 MCG/2 ML VIAL ONE ×2 (10:18→12:31)
[2017-05-12] MEDS ORDERED: SEVOFLURANE 61 TO 120 MINUTES. IH ONE (10:18)
[2017-05-12] MEDS ORDERED: ceFAZolin 2GM PREMIX 2 GM/50 ML BAG IV ONE (11:00)
[2017-05-12] MEDS: IV RINGERS,LACTATED 1000ML 1,000 ML IV SCH (11:08)
--- NOTE | 2017-05-12 12:13 | RAD ---
Intraoperative cholangiogram, 05/12/2017: History: Cholecystectomy 3 spot films from surgery are presented for review. Contrast has been injected into the cystic duct remnant. 0.12 minutes of fluoroscopy time was utilized. There is good flow of contrast into the duodenum at the ampulla. No filling defect is seen in the common duct to suggest a retained calculus. There is smooth tapering of the distal duct. The incompletely opacified intrahepatic ducts are unremarkable. No contrast extravasation is seen. IMPRESSION: No significant abnormality is detected.
--- NOTE | 2017-05-12 12:17 | PDOC ---
PROGRESS NOTES Chief Complaint Chief Complaint Abd pain ASSESSMENT AND PLAN: 1. Cholelithiasis: symptomatic. CCY today 2. Hepatitis: 2/2 CBD stone, improving. viral panel, incl EBV and CMV neg ( only IgG pos. = resolved infection) 3. DM2: well controlled 4. HTN: borderline control; await full PO intake and good pain control before adjusting regimen 5. Hypokalemia: replete, monitor 6. Tobaccoism: nicotine patch 7. Cocaine abuse History of Present Illness History of Present Illness c/o post op pain RUQ Vitals Vitals Vital Signs Date Time Temp Pulse Resp B/P (MAP) Pulse Ox O2 Delivery O2 Flow Rate FiO2 05/12/17 11:00 97.7 58 18 169/78 (108) 97 Room Air 97.7 Physical Exam General: Other (lethargic, post CCY) Heart: Regular rate, No murmurs Lungs: Clear Abdomen: Soft, Other (RUQ TTP) Extremities: No edema Skin: No rashes Labs LABS Laboratory Tests Test 05/11/17 16:15 05/11/17 21:29 05/12/17 07:00 05/12/17 07:17 Glucose (Fingerstick) 125 mg/dL (70-99) 156 mg/dL (70-99) 113 mg/dL (70-99) Total Bilirubin 0.6 mg/dL (0.2-1.0) Direct Bilirubin 0.1 mg/dL (0.0-0.2) Aspartate Amino Transf (AST/SGOT) 73 U/L (15-37) Alanine Aminotransferase (ALT/SGPT) 148 U/L (14-59) Alkaline Phosphatase 137 U/L (46-116) Total Protein 7.2 g/dL (6.4-8.2) Albumin 3.2 g/dL (3.4-5.0) Test 05/12/17 10:14 Glucose (Fingerstick) 101 mg/dL (70-99) DAVID JONES MD May 12, 2017 12:17
[2017-05-12] MEDS: fentaNYL PF VIAL 100 MCG/2 ML VIAL IV PRN ×2 (12:33→12:44)
--- NOTE | 2017-05-12 12:34 | PDOC ---
BRIEF OPERATIVE NOTE Date: May 12, 2017 Pre-Op Diagnosis symptomatic cholelithiasis, elevated LFT's Post-Op Diagnosis same Procedure Performed l/s cholecystectomy with cholangiograms, liver biopsy Surgeon Hawk Anesthesia Type: General Blood Loss 25cc IV Fluid 700cc Specimens Obtained GB Findings normal grams, supple GB with omental adhesions Complications none Operative Note Ek # [id number] VALERY MONROY MD May 12, 2017 12:34
--- NOTE | 2017-05-12 12:38 | OP ---
DATE OF SURGERY: 05/12/2017 PREOPERATIVE DIAGNOSIS: Symptomatic cholelithiasis with elevated liver function studies. POSTOPERATIVE DIAGNOSIS: Symptomatic cholelithiasis with elevated liver function studies. PROCEDURES: 1. Laparoscopic cholecystectomy with cholangiogram. 2. Liver biopsy. SURGEON: Markel Monroy MD ANESTHESIA: General endotracheal. ESTIMATED BLOOD LOSS: 25. INTRAVENOUS FLUIDS: 700. INDICATIONS: The patient is a 61-year-old who came in with elevated liver enzymes and an ultrasound showing stones. She is brought for cholecystectomy and liver biopsy. OPERATIVE FINDINGS: The liver was slightly fatty replaced, but was smooth. The gallbladder was supple. Cholangiograms were normal. There were some omental adhesions along the inferior surface of the gallbladder. Visual inspection of the remainder of the abdomen failed to reveal obvious abnormalities. DESCRIPTION OF PROCEDURE: The patient was brought to the operating suite, given a general endotracheal anesthetic and the abdomen prepped and draped in usual sterile fashion. A supraumbilical incision was infiltrated with local anesthetic, incised and a 5 mm Visiport used to safely gain access into the abdominal cavity, taking care to avoid injury to abdominal contents. Pneumoperitoneum was established. Camera inserted and inspection carried out with results as noted above. With the table in reverse Trendelenburg rolled to the left, the epigastric, midclavicular, and lateral ports were placed under direct vision. The gallbladder was retracted superolaterally and the omental adhesions were carefully taken down with blunt and cautery dissection, taking care to avoid injury to the adjacent bowel. The cystic duct and cystic artery were exposed. The duct was clipped on the gallbladder side. Cholangiograms were made. These were normal. In light of this, the catheter was removed. The cystic duct was clipped x 3 and divided, taking care to avoid injury or compromise of the common duct. An anterior and posterior branch of the cystic artery were isolated, clipped and divided and the gallbladder freed from the bed and placed in an EndoCatch bag. Good hemostasis was present. A 19-Citizen [place] round Igor drain was brought through the epigastric port out the lateral ports, sewn to the skin with a silk stitch and left in the subhepatic space for postoperative drainage. Table returned to level. Intra-abdominal pressure decreased to 6 cm of water and a Isaac-Cut biopsy needle was used to harvest a single pass liver biopsy. Hemostasis with cautery and was good. Gallbladder delivered through the epigastric incision. Epigastric incision closed with interrupted 0 Vicryl suture. Again, at 6 cm intraabdominal pressure, no bleeding from the epigastric closure or from the midclavicular port site after its removal, the drain site or the side of the liver biopsy. Camera was slowly removed, no bleeding seen. Abdomen decompressed. Skin incisions closed with subcuticular 4-0 Monocryl. Steri-Strips and sterile dressings applied. The patient awakened from her anesthetic and taken to the recovery room in satisfactory condition. MARKEL MONROY MD DR: YVON/yuko JOB#: [id number] / [id number]
[2017-05-12] MEDS: IV NORMAL SALINE 1000ML BAG 1,000 ML IV SCH (14:55)
[2017-05-12] MEDS: oxyCODONE/APAP 5/325 1 TAB TABLET PO PRN (21:24)
[2017-05-13] MEDS: IV RINGERS,LACTATED 1000ML 1,000 ML IV SCH (00:35)
[2017-05-13] MEDS: MORPHINE SULFATE 4 MG/ML DISP.SYRIN. IV PRN ×2 (00:35→08:23)
[2017-05-13 03:28] VITALS: BP 135/55
[2017-05-13] MEDS: IV NORMAL SALINE 1000ML BAG 1,000 ML IV SCH ×2 (03:40→14:04)
[2017-05-13 06:26] LABS: BASO % 0 % (0-3); EOS % 0 % (0-3); HEMATOCRIT 37.5 % (36.0-47.0); LYMPH # 1.8 x10^3/uL (1.0-4.8); LYMPH % 22 % (24-48); MEAN CORPUSCULAR HEMOGLOBIN 23 pg (25-35); MEAN CORPUSCULAR HGB CONC 32 g/dL (31-37); MEAN CORPUSCULAR VOLUME 73 fL (79-100); MONO % 8 % (0-9); NEUT % 70 % (31-73); PLATELET COUNT 306 x10^3/uL (140-400); RED BLOOD COUNT 5.12 x10^6/uL (3.50-5.40); RED CELL DISTRIBUTION WIDTH 15.9 % (11.5-14.5); WHITE BLOOD COUNT 8.1 x10^3/uL (4.0-11.0)
[2017-05-13 06:55] LABS: ALBUMIN/GLOBULIN RATIO 0.7 (1.0-1.7); CALCIUM 8.9 mg/dL (8.5-10.1); CREATININE 1.1 mg/dL (0.6-1.0); GFR 61.5; POTASSIUM 3.1 mmol/L (3.5-5.1); TOTAL BILIRUBIN 0.4 mg/dL (0.2-1.0); TOTAL PROTEIN 7.1 g/dL (6.4-8.2)
[2017-05-13] MEDS: INSULIN ASPART 300 UNITS/3 ML INSULN.PEN SQ SCH ×3 (08:00→17:00)
[2017-05-13] MEDS: PANTOPRAZOLE 40 MG TABLET.DR. PO SCH ×2 (08:20→17:10)
[2017-05-13] MEDS: GEMFIBROZIL 600 MG TABLET. PO SCH ×2 (08:20→22:19)
[2017-05-13] MEDS: metFORMIN 500 MG TABLET PO SCH ×2 (08:20→17:10)
[2017-05-13] MEDS: METOPROLOL TART IMMED RELEASE 50 MG TABLET. PO SCH ×2 (08:21→22:19)
[2017-05-13] MEDS: amLODIPine BESYLATE 5 MG TABLET PO SCH (08:21)
[2017-05-13] MEDS: oxyCODONE/APAP 5/325 1 TAB TABLET PO PRN ×3 (08:22→23:33)
--- NOTE | 2017-05-13 08:41 | PDOC ---
ALEXIA HALL [employer] 05/13/17 0841: SURGICAL PROGRESS NOTE Subjective RUQ pain some nausea this AM, no emesis Vital Signs Vital Signs Date Time Temp Pulse Resp B/P (MAP) Pulse Ox O2 Delivery O2 Flow Rate FiO2 05/13/17 08:23 20 94 Room Air 2.0 05/13/17 08:21 59 135/55 05/13/17 07:00 97.9 97.9 I&O Intake and Output 05/13/17 07:00 Intake Total 910 ml Output Total 330 ml Balance 580 ml Intake Oral 910 ml Output Urine Total 300 ml Drainage Total 30 ml # Voids 2 General: Alert, Oriented X3, Cooperative, No acute distress Abdomen: Soft, Other (lap dressings dry, incisional TTP, ELISEO serosang ) Labs Laboratory Tests Test 05/11/17 10:42 05/11/17 16:15 05/11/17 21:29 05/12/17 07:00 Glucose (Fingerstick) 116 mg/dL (70-99) 125 mg/dL (70-99) 156 mg/dL (70-99) Total Bilirubin 0.6 mg/dL (0.2-1.0) Direct Bilirubin 0.1 mg/dL (0.0-0.2) Aspartate Amino Transf (AST/SGOT) 73 U/L (15-37) Alanine Aminotransferase (ALT/SGPT) 148 U/L (14-59) Alkaline Phosphatase 137 U/L (46-116) Total Protein 7.2 g/dL (6.4-8.2) Albumin 3.2 g/dL (3.4-5.0) Test 05/12/17 07:17 05/12/17 10:14 05/12/17 12:58 05/12/17 16:59 Glucose (Fingerstick) 113 mg/dL (70-99) 101 mg/dL (70-99) 143 mg/dL (70-99) 147 mg/dL (70-99) Test 05/12/17 21:26 05/13/17 05:37 05/13/17 07:30 Glucose (Fingerstick) 172 mg/dL (70-99) 112 mg/dL (70-99) White Blood Count 8.1 x10^3/uL (4.0-11.0) Red Blood Count 5.12 x10^6/uL (3.50-5.40) Hemoglobin 12.0 g/dL (12.0-15.5) Hematocrit 37.5 % (36.0-47.0) Mean Corpuscular Volume 73 fL (79-100) Mean Corpuscular Hemoglobin 23 pg (25-35) Mean Corpuscular Hemoglobin Concent 32 g/dL (31-37) Red Cell Distribution Width 15.9 % (11.5-14.5) Platelet Count 306 x10^3/uL (140-400) Neutrophils (%) (Auto) 70 % (31-73) Lymphocytes (%) (Auto) 22 % (24-48) Monocytes (%) (Auto) 8 % (0-9) Eosinophils (%) (Auto) 0 % (0-3) Basophils (%) (Auto) 0 % (0-3) Neutrophils # (Auto) 5.7 x10^3uL (1.8-7.7) Lymphocytes # (Auto) 1.8 x10^3/uL (1.0-4.8) Monocytes # (Auto) 0.6 x10^3/uL (0.0-1.1) Eosinophils # (Auto) 0.0 x10^3/uL (0.0-0.7) Basophils # (Auto) 0.0 x10^3/uL (0.0-0.2) Sodium Level 139 mmol/L (136-145) Potassium Level 3.1 mmol/L (3.5-5.1) Chloride Level 102 mmol/L (98-107) Carbon Dioxide Level 26 mmol/L (21-32) Anion Gap 11 (6-14) Blood Urea Nitrogen 13 mg/dL (7-20) Creatinine 1.1 mg/dL (0.6-1.0) Estimated GFR (Cockcroft-Gault) 61.5 BUN/Creatinine Ratio 12 (6-20) Glucose Level 126 mg/dL (70-99) Calcium Level 8.9 mg/dL (8.5-10.1) Total Bilirubin 0.4 mg/dL (0.2-1.0) Aspartate Amino Transf (AST/SGOT) 71 U/L (15-37) Alanine Aminotransferase (ALT/SGPT) 131 U/L (14-59) Alkaline Phosphatase 126 U/L (46-116) Total Protein 7.1 g/dL (6.4-8.2) Albumin 3.0 g/dL (3.4-5.0) Albumin/Globulin Ratio 0.7 (1.0-1.7) Laboratory Tests Test 05/12/17 10:14 05/12/17 12:58 05/12/17 16:59 05/12/17 21:26 Glucose (Fingerstick) 101 mg/dL (70-99) 143 mg/dL (70-99) 147 mg/dL (70-99) 172 mg/dL (70-99) Test 05/13/17 05:37 05/13/17 07:30 White Blood Count 8.1 x10^3/uL (4.0-11.0) Red Blood Count 5.12 x10^6/uL (3.50-5.40) Hemoglobin 12.0 g/dL (12.0-15.5) Hematocrit 37.5 % (36.0-47.0) Mean Corpuscular Volume 73 fL (79-100) Mean Corpuscular Hemoglobin 23 pg (25-35) Mean Corpuscular Hemoglobin Concent 32 g/dL (31-37) Red Cell Distribution Width 15.9 % (11.5-14.5) Platelet Count 306 x10^3/uL (140-400) Neutrophils (%) (Auto) 70 % (31-73) Lymphocytes (%) (Auto) 22 % (24-48) Monocytes (%) (Auto) 8 % (0-9) Eosinophils (%) (Auto) 0 % (0-3) Basophils (%) (Auto) 0 % (0-3) Neutrophils # (Auto) 5.7 x10^3uL (1.8-7.7) Lymphocytes # (Auto) 1.8 x10^3/uL (1.0-4.8) Monocytes # (Auto) 0.6 x10^3/uL (0.0-1.1) Eosinophils # (Auto) 0.0 x10^3/uL (0.0-0.7) Basophils # (Auto) 0.0 x10^3/uL (0.0-0.2) Sodium Level 139 mmol/L (136-145) Potassium Level 3.1 mmol/L (3.5-5.1) Chloride Level 102 mmol/L (98-107) Carbon Dioxide Level 26 mmol/L (21-32) Anion Gap 11 (6-14) Blood Urea Nitrogen 13 mg/dL (7-20) Creatinine 1.1 mg/dL (0.6-1.0) Estimated GFR (Cockcroft-Gault) 61.5 BUN/Creatinine Ratio 12 (6-20) Glucose Level 126 mg/dL (70-99) Calcium Level 8.9 mg/dL (8.5-10.1) Total Bilirubin 0.4 mg/dL (0.2-1.0) Aspartate Amino Transf (AST/SGOT) 71 U/L (15-37) Alanine Aminotransferase (ALT/SGPT) 131 U/L (14-59) Alkaline Phosphatase 126 U/L (46-116) Total Protein 7.1 g/dL (6.4-8.2) Albumin 3.0 g/dL (3.4-5.0) Albumin/Globulin Ratio 0.7 (1.0-1.7) Glucose (Fingerstick) 112 mg/dL (70-99) Problem List Problems Medical Problems: (1) Abdominal pain Status: Acute (2) Nausea and vomiting Status: Acute Assessment/Plan s/p lap radha, liver bx K low, replace per primary LFTS stable continue drain Problems: VALERY MONROY MD 05/13/17 1402: SURGICAL PROGRESS NOTE Assessment/Plan pt seen agre with above probably home tomorrow Dr Albright et al to follow in my absence Problems: ALEXIA HALL APRN May 13, 2017 08:41 VALERY MONROY MD May 13, 2017 14:02
--- NOTE | 2017-05-13 09:56 | PDOC ---
PROGRESS NOTES Chief Complaint Chief Complaint Abd pain ASSESSMENT AND PLAN: 1. Cholelithiasis: symptomatic. s/p CCY on 05/12, recovering appropriately 2. Hepatitis: 2/2 CBD stone, improving. viral panel, incl EBV and CMV neg ( only IgG pos. = resolved infection) 3. DM2: well controlled 4. HTN: borderline control; await full PO intake and good pain control before adjusting regimen 5. Hypokalemia: replete, monitor 6. Tobaccoism: nicotine patch 7. Cocaine abuse 8. Dispo: prob D/C home in AM History of Present Illness History of Present Illness tolerating PO, pain well controlled Vitals Vitals Vital Signs Date Time Temp Pulse Resp B/P (MAP) Pulse Ox O2 Delivery O2 Flow Rate FiO2 05/13/17 09:22 20 94 Room Air 2.0 05/13/17 08:21 59 135/55 05/13/17 07:00 97.9 97.9 Physical Exam General: Alert, Oriented X3, Cooperative, No acute distress Heart: Regular rate, No murmurs Lungs: Clear Abdomen: Soft, Other ( incisional TTP, ELISEO serosang ) Extremities: No edema Skin: No rashes Labs LABS Laboratory Tests Test 05/12/17 10:14 05/12/17 12:58 05/12/17 16:59 05/12/17 21:26 Glucose (Fingerstick) 101 mg/dL (70-99) 143 mg/dL (70-99) 147 mg/dL (70-99) 172 mg/dL (70-99) Test 05/13/17 05:37 05/13/17 07:30 White Blood Count 8.1 x10^3/uL (4.0-11.0) Red Blood Count 5.12 x10^6/uL (3.50-5.40) Hemoglobin 12.0 g/dL (12.0-15.5) Hematocrit 37.5 % (36.0-47.0) Mean Corpuscular Volume 73 fL (79-100) Mean Corpuscular Hemoglobin 23 pg (25-35) Mean Corpuscular Hemoglobin Concent 32 g/dL (31-37) Red Cell Distribution Width 15.9 % (11.5-14.5) Platelet Count 306 x10^3/uL (140-400) Neutrophils (%) (Auto) 70 % (31-73) Lymphocytes (%) (Auto) 22 % (24-48) Monocytes (%) (Auto) 8 % (0-9) Eosinophils (%) (Auto) 0 % (0-3) Basophils (%) (Auto) 0 % (0-3) Neutrophils # (Auto) 5.7 x10^3uL (1.8-7.7) Lymphocytes # (Auto) 1.8 x10^3/uL (1.0-4.8) Monocytes # (Auto) 0.6 x10^3/uL (0.0-1.1) Eosinophils # (Auto) 0.0 x10^3/uL (0.0-0.7) Basophils # (Auto) 0.0 x10^3/uL (0.0-0.2) Sodium Level 139 mmol/L (136-145) Potassium Level 3.1 mmol/L (3.5-5.1) Chloride Level 102 mmol/L (98-107) Carbon Dioxide Level 26 mmol/L (21-32) Anion Gap 11 (6-14) Blood Urea Nitrogen 13 mg/dL (7-20) Creatinine 1.1 mg/dL (0.6-1.0) Estimated GFR (Cockcroft-Gault) 61.5 BUN/Creatinine Ratio 12 (6-20) Glucose Level 126 mg/dL (70-99) Calcium Level 8.9 mg/dL (8.5-10.1) Total Bilirubin 0.4 mg/dL (0.2-1.0) Aspartate Amino Transf (AST/SGOT) 71 U/L (15-37) Alanine Aminotransferase (ALT/SGPT) 131 U/L (14-59) Alkaline Phosphatase 126 U/L (46-116) Total Protein 7.1 g/dL (6.4-8.2) Albumin 3.0 g/dL (3.4-5.0) Albumin/Globulin Ratio 0.7 (1.0-1.7) Glucose (Fingerstick) 112 mg/dL (70-99) DAVID JONES MD May 13, 2017 09:56
[2017-05-13 11:00] VITALS: BP 113/65
--- NOTE | 2017-05-13 13:04 | PDOC ---
Subjective: Subjective: Eating regular lunch, tolerating so far. RUQ pain around incisions. Some nausea. Objective: Vital Signs: Vital Signs Date Time Temp Pulse Resp B/P (MAP) Pulse Ox O2 Delivery O2 Flow Rate FiO2 05/13/17 11:00 97.9 56 18 113/65 (81) 96 Nasal Cannula 2.0 97.9 Labs: Laboratory Tests Test 05/12/17 16:59 05/12/17 21:26 05/13/17 05:37 05/13/17 07:30 Glucose (Fingerstick) 147 mg/dL 172 mg/dL 112 mg/dL White Blood Count 8.1 x10^3/uL Red Blood Count 5.12 x10^6/uL Hemoglobin 12.0 g/dL Hematocrit 37.5 % Mean Corpuscular Volume 73 fL Mean Corpuscular Hemoglobin 23 pg Mean Corpuscular Hemoglobin Concent 32 g/dL Red Cell Distribution Width 15.9 % Platelet Count 306 x10^3/uL Neutrophils (%) (Auto) 70 % Lymphocytes (%) (Auto) 22 % Monocytes (%) (Auto) 8 % Eosinophils (%) (Auto) 0 % Basophils (%) (Auto) 0 % Neutrophils # (Auto) 5.7 x10^3uL Lymphocytes # (Auto) 1.8 x10^3/uL Monocytes # (Auto) 0.6 x10^3/uL Eosinophils # (Auto) 0.0 x10^3/uL Basophils # (Auto) 0.0 x10^3/uL Sodium Level 139 mmol/L Potassium Level 3.1 mmol/L Chloride Level 102 mmol/L Carbon Dioxide Level 26 mmol/L Anion Gap 11 Blood Urea Nitrogen 13 mg/dL Creatinine 1.1 mg/dL Estimated GFR (Cockcroft-Gault) 61.5 BUN/Creatinine Ratio 12 Glucose Level 126 mg/dL Calcium Level 8.9 mg/dL Total Bilirubin 0.4 mg/dL Aspartate Amino Transf (AST/SGOT) 71 U/L Alanine Aminotransferase (ALT/SGPT) 131 U/L Alkaline Phosphatase 126 U/L Total Protein 7.1 g/dL Albumin 3.0 g/dL Albumin/Globulin Ratio 0.7 Test 05/13/17 10:43 Glucose (Fingerstick) 119 mg/dL PE: GEN: NAD LUNGS: CTAB HEART: RRR ABD: RUQ tender, ELISEO serosang NEURO/PSYCH: A & O 3 A/P: S/p cholecystectomy Abnormal LFTs - improved since admission -Hepatitis panel neg, liver bx pending, fatty liver on imaging -- Tolerating PO, some post-op pain. Await liver biopsy. Outpt EGD and colonoscopy. Continue PPI. JOSIE ANGELES May 13, 2017 13:04
[2017-05-13 15:00] VITALS: BP 154/76
[2017-05-13] MEDS: DOCUSATE SODIUM 100 MG CAPSULE. PO PRN (15:25)
--- NOTE | 2017-05-13 15:28 | PATHOLOGY ---
PATHOLOGY REPORT * * * * * * * * FINAL DIAGNOSIS: A. Gallbladder, cholecystectomy: - Cholelithiasis. - Chronic cholecystitis with increased eosinophils. B. Liver needle biopsy: - Results to be reported separately. COMMENT: Sections of the gallbladder show chronic inflammation with increased eosinophils. There is no evidence of malignancy. The liver biopsy is being forwarded for expert consultation, the results of which will be reported separately. Special stains performed: Trichrome, retic, iron stain and PAS with and without diastase. (JPM:[email or web address]; 05/13/2017) REPORT ELECTRONICALLY SIGNED BY: Everett Mendieta M.D. DATE/TIME: 05/13/2017 15:26 * * * * * * * * GROSS PATHOLOGY: A. Received in formalin labeled "Belen Rain, gallbladder and contents," is an 11.9 x 3.1 x 2.3 cm, intact gallbladder with dark blue to purple, vascular serosal surfaces. Opening the gallbladder reveals dark green, velvety mucosa and an average wall thickness of 0.2 cm. Calculi are present, measuring 0.3-0.4 cm in maximum dimension, displaying a yellow and granular appearance, and feeling friable to the touch. No masses are noted grossly. Terrestrial Ecologist sections from the body and fundus are submitted along with the proximal margin in cassette A1. B. Received in formalin labeled "Belen Rain, liver biopsy," are 3 distinct needle cores of de soft tissue ranging from 0.6 to 0.8 cm in length, which are submitted entirely in cassette B1. (TSD; 05/12/2017) INITIAL CPT CODE(S): A; 29681 B; 44753, 49066, 71719, 95680, 42458, 98856 Professional services performed by [facility] at [address] [address] Technical services performed by [facility] at [address] [place] [address], [address], [place] [address]. SPECIMEN(S) RECEIVED: A.Gallbladder and contents B.Liver, needle biopsy CLINICAL HISTORY: Ventral incarcerated hernia, liver biopsy for probable fatty liver, abdominal pain, abnormal LFT's PATIENT: BELEN RAIN /AGE: 7 1955 (Age: 61) PATIENT #: [id number] ALT CASE #: SPECIMEN COLLECTION DATE: 05/12/2017 SPECIMEN RECEIVED DATE: 05/12/2017 [facility] - [address] [place] [address] - PHONE: [phone] * * * END OF REPORT * * *
[2017-05-13 19:00] VITALS: BP 154/89
[2017-05-13 23:00] VITALS: BP 162/79
[2017-05-14 03:00] VITALS: BP 148/80
[2017-05-14 05:30] LABS: BASO % 1 % (0-3); EOS % 1 % (0-3); HEMATOCRIT 35.3 % (36.0-47.0); HEMOGLOBIN 11.1 g/dL (12.0-15.5); LYMPH # 2.7 x10^3/uL (1.0-4.8); LYMPH % 48 % (24-48); MEAN CORPUSCULAR HEMOGLOBIN 23 pg (25-35); MEAN CORPUSCULAR HGB CONC 31 g/dL (31-37); MEAN CORPUSCULAR VOLUME 73 fL (79-100); MONO % 8 % (0-9); NEUT % 43 % (31-73); PLATELET COUNT 287 x10^3/uL (140-400); RED BLOOD COUNT 4.82 x10^6/uL (3.50-5.40); RED CELL DISTRIBUTION WIDTH 16.3 % (11.5-14.5); WHITE BLOOD COUNT 5.7 x10^3/uL (4.0-11.0)
[2017-05-14 05:51] LABS: ALBUMIN 2.9 g/dL (3.4-5.0); ALBUMIN/GLOBULIN RATIO 0.8 (1.0-1.7); CALCIUM 8.5 mg/dL (8.5-10.1); CREATININE 1.2 mg/dL (0.6-1.0); GFR 55.6; TOTAL BILIRUBIN 0.4 mg/dL (0.2-1.0); TOTAL PROTEIN 6.7 g/dL (6.4-8.2)
[2017-05-14 07:00] VITALS: BP 179/83
[2017-05-14] MEDS: INSULIN ASPART 300 UNITS/3 ML INSULN.PEN SQ SCH ×3 (08:00→17:00)
[2017-05-14] MEDS: metFORMIN 500 MG TABLET PO SCH ×2 (08:48→17:50)
[2017-05-14] MEDS: PANTOPRAZOLE 40 MG TABLET.DR. PO SCH ×2 (08:48→17:50)
[2017-05-14] MEDS: amLODIPine BESYLATE 5 MG TABLET PO SCH (08:48)
[2017-05-14] MEDS: GEMFIBROZIL 600 MG TABLET. PO SCH ×2 (08:48→21:02)
[2017-05-14] MEDS: METOPROLOL TART IMMED RELEASE 50 MG TABLET. PO SCH ×2 (08:49→21:02)
[2017-05-14] MEDS: oxyCODONE/APAP 5/325 1 TAB TABLET PO PRN ×2 (08:49→22:13)
[2017-05-14] MEDS: ONDANSETRON PF 4 MG/2 ML VIAL. IV PRN (08:50)
[2017-05-14 10:48] VITALS: BP 156/83
--- NOTE | 2017-05-14 10:59 | PDOC ---
SURGICAL PROGRESS NOTE Subjective Pt with c/o Nausea with eating, pain controlled, no flatus or stool, taking a laxative Vital Signs Vital Signs Date Time Temp Pulse Resp B/P (MAP) Pulse Ox O2 Delivery O2 Flow Rate FiO2 05/14/17 10:48 97.8 51 18 156/83 (107) 96 Room Air 97.8 05/14/17 09:49 2.0 I&O Intake and Output 05/14/17 07:00 Intake Total 2000 ml Output Total 80 ml Balance 1920 ml Intake Oral 2000 ml Drainage Total 30 ml Other 50 ml # Voids 6 General: Alert, Oriented X3, Cooperative, No acute distress Abdomen: Soft, Other (mild TTP) Labs Laboratory Tests Test 05/12/17 12:58 05/12/17 16:59 05/12/17 21:26 05/13/17 05:37 Glucose (Fingerstick) 143 mg/dL (70-99) 147 mg/dL (70-99) 172 mg/dL (70-99) White Blood Count 8.1 x10^3/uL (4.0-11.0) Red Blood Count 5.12 x10^6/uL (3.50-5.40) Hemoglobin 12.0 g/dL (12.0-15.5) Hematocrit 37.5 % (36.0-47.0) Mean Corpuscular Volume 73 fL (79-100) Mean Corpuscular Hemoglobin 23 pg (25-35) Mean Corpuscular Hemoglobin Concent 32 g/dL (31-37) Red Cell Distribution Width 15.9 % (11.5-14.5) Platelet Count 306 x10^3/uL (140-400) Neutrophils (%) (Auto) 70 % (31-73) Lymphocytes (%) (Auto) 22 % (24-48) Monocytes (%) (Auto) 8 % (0-9) Eosinophils (%) (Auto) 0 % (0-3) Basophils (%) (Auto) 0 % (0-3) Neutrophils # (Auto) 5.7 x10^3uL (1.8-7.7) Lymphocytes # (Auto) 1.8 x10^3/uL (1.0-4.8) Monocytes # (Auto) 0.6 x10^3/uL (0.0-1.1) Eosinophils # (Auto) 0.0 x10^3/uL (0.0-0.7) Basophils # (Auto) 0.0 x10^3/uL (0.0-0.2) Sodium Level 139 mmol/L (136-145) Potassium Level 3.1 mmol/L (3.5-5.1) Chloride Level 102 mmol/L (98-107) Carbon Dioxide Level 26 mmol/L (21-32) Anion Gap 11 (6-14) Blood Urea Nitrogen 13 mg/dL (7-20) Creatinine 1.1 mg/dL (0.6-1.0) Estimated GFR (Cockcroft-Gault) 61.5 BUN/Creatinine Ratio 12 (6-20) Glucose Level 126 mg/dL (70-99) Calcium Level 8.9 mg/dL (8.5-10.1) Total Bilirubin 0.4 mg/dL (0.2-1.0) Aspartate Amino Transf (AST/SGOT) 71 U/L (15-37) Alanine Aminotransferase (ALT/SGPT) 131 U/L (14-59) Alkaline Phosphatase 126 U/L (46-116) Total Protein 7.1 g/dL (6.4-8.2) Albumin 3.0 g/dL (3.4-5.0) Albumin/Globulin Ratio 0.7 (1.0-1.7) Test 05/13/17 07:30 05/13/17 10:43 05/13/17 16:29 05/14/17 03:55 Glucose (Fingerstick) 112 mg/dL (70-99) 119 mg/dL (70-99) 133 mg/dL (70-99) White Blood Count 5.7 x10^3/uL (4.0-11.0) Red Blood Count 4.82 x10^6/uL (3.50-5.40) Hemoglobin 11.1 g/dL (12.0-15.5) Hematocrit 35.3 % (36.0-47.0) Mean Corpuscular Volume 73 fL (79-100) Mean Corpuscular Hemoglobin 23 pg (25-35) Mean Corpuscular Hemoglobin Concent 31 g/dL (31-37) Red Cell Distribution Width 16.3 % (11.5-14.5) Platelet Count 287 x10^3/uL (140-400) Neutrophils (%) (Auto) 43 % (31-73) Lymphocytes (%) (Auto) 48 % (24-48) Monocytes (%) (Auto) 8 % (0-9) Eosinophils (%) (Auto) 1 % (0-3) Basophils (%) (Auto) 1 % (0-3) Neutrophils # (Auto) 2.4 x10^3uL (1.8-7.7) Lymphocytes # (Auto) 2.7 x10^3/uL (1.0-4.8) Monocytes # (Auto) 0.4 x10^3/uL (0.0-1.1) Eosinophils # (Auto) 0.1 x10^3/uL (0.0-0.7) Basophils # (Auto) 0.0 x10^3/uL (0.0-0.2) Sodium Level 142 mmol/L (136-145) Potassium Level 3.0 mmol/L (3.5-5.1) Chloride Level 103 mmol/L (98-107) Carbon Dioxide Level 26 mmol/L (21-32) Anion Gap 13 (6-14) Blood Urea Nitrogen 12 mg/dL (7-20) Creatinine 1.2 mg/dL (0.6-1.0) Estimated GFR (Cockcroft-Gault) 55.6 BUN/Creatinine Ratio 10 (6-20) Glucose Level 110 mg/dL (70-99) Calcium Level 8.5 mg/dL (8.5-10.1) Total Bilirubin 0.4 mg/dL (0.2-1.0) Aspartate Amino Transf (AST/SGOT) 59 U/L (15-37) Alanine Aminotransferase (ALT/SGPT) 101 U/L (14-59) Alkaline Phosphatase 110 U/L (46-116) Total Protein 6.7 g/dL (6.4-8.2) Albumin 2.9 g/dL (3.4-5.0) Albumin/Globulin Ratio 0.8 (1.0-1.7) Test 05/14/17 08:02 05/14/17 10:05 Glucose (Fingerstick) 99 mg/dL (70-99) 156 mg/dL (70-99) Laboratory Tests Test 05/13/17 16:29 05/14/17 03:55 05/14/17 08:02 05/14/17 10:05 Glucose (Fingerstick) 133 mg/dL (70-99) 99 mg/dL (70-99) 156 mg/dL (70-99) White Blood Count 5.7 x10^3/uL (4.0-11.0) Red Blood Count 4.82 x10^6/uL (3.50-5.40) Hemoglobin 11.1 g/dL (12.0-15.5) Hematocrit 35.3 % (36.0-47.0) Mean Corpuscular Volume 73 fL (79-100) Mean Corpuscular Hemoglobin 23 pg (25-35) Mean Corpuscular Hemoglobin Concent 31 g/dL (31-37) Red Cell Distribution Width 16.3 % (11.5-14.5) Platelet Count 287 x10^3/uL (140-400) Neutrophils (%) (Auto) 43 % (31-73) Lymphocytes (%) (Auto) 48 % (24-48) Monocytes (%) (Auto) 8 % (0-9) Eosinophils (%) (Auto) 1 % (0-3) Basophils (%) (Auto) 1 % (0-3) Neutrophils # (Auto) 2.4 x10^3uL (1.8-7.7) Lymphocytes # (Auto) 2.7 x10^3/uL (1.0-4.8) Monocytes # (Auto) 0.4 x10^3/uL (0.0-1.1) Eosinophils # (Auto) 0.1 x10^3/uL (0.0-0.7) Basophils # (Auto) 0.0 x10^3/uL (0.0-0.2) Sodium Level 142 mmol/L (136-145) Potassium Level 3.0 mmol/L (3.5-5.1) Chloride Level 103 mmol/L (98-107) Carbon Dioxide Level 26 mmol/L (21-32) Anion Gap 13 (6-14) Blood Urea Nitrogen 12 mg/dL (7-20) Creatinine 1.2 mg/dL (0.6-1.0) Estimated GFR (Cockcroft-Gault) 55.6 BUN/Creatinine Ratio 10 (6-20) Glucose Level 110 mg/dL (70-99) Calcium Level 8.5 mg/dL (8.5-10.1) Total Bilirubin 0.4 mg/dL (0.2-1.0) Aspartate Amino Transf (AST/SGOT) 59 U/L (15-37) Alanine Aminotransferase (ALT/SGPT) 101 U/L (14-59) Alkaline Phosphatase 110 U/L (46-116) Total Protein 6.7 g/dL (6.4-8.2) Albumin 2.9 g/dL (3.4-5.0) Albumin/Globulin Ratio 0.8 (1.0-1.7) Problem List Problems Medical Problems: (1) Abdominal pain Status: Acute (2) Nausea and vomiting Status: Acute Assessment/Plan s/p lap radha cont antiemetics await bowel fxn Problems: NIKO HEMPHILL MD May 14, 2017 10:59
--- NOTE | 2017-05-14 13:38 | PDOC ---
PROGRESS NOTES Chief Complaint Chief Complaint Abd pain ASSESSMENT AND PLAN: 1. Cholelithiasis: symptomatic. s/p CCY on 05/12, recovering slowly. no flatus/BM, nausea w/ PO intake. copious ELISEO drainage 2. Hepatitis: 2/2 CBD stone, improved, but now plateauing. viral panel, incl EBV and CMV neg (only IgG pos. = resolved infection). ? ADAIR. monitor 3. DM2: well controlled 4. HTN: borderline control; await full PO intake and good pain control before adjusting regimen 5. Hypokalemia: persistent, vomited PO KCL. replete IV, monitor 6. Tobaccoism: nicotine patch 7. Cocaine abuse 8. Dispo: prob D/C home in AM; as per surgery History of Present Illness History of Present Illness tolerating PO, pain well controlled Vitals Vitals Vital Signs Date Time Temp Pulse Resp B/P (MAP) Pulse Ox O2 Delivery O2 Flow Rate FiO2 05/14/17 10:48 97.8 51 18 156/83 (107) 96 Room Air 97.8 05/14/17 09:49 2.0 Physical Exam General: Alert, Oriented X3, Cooperative, No acute distress Heart: Regular rate, No murmurs Lungs: Clear Abdomen: Soft, Other (mild TTP) Extremities: No edema Skin: No rashes Labs LABS Laboratory Tests Test 05/13/17 16:29 05/14/17 03:55 05/14/17 08:02 05/14/17 10:05 Glucose (Fingerstick) 133 mg/dL (70-99) 99 mg/dL (70-99) 156 mg/dL (70-99) White Blood Count 5.7 x10^3/uL (4.0-11.0) Red Blood Count 4.82 x10^6/uL (3.50-5.40) Hemoglobin 11.1 g/dL (12.0-15.5) Hematocrit 35.3 % (36.0-47.0) Mean Corpuscular Volume 73 fL (79-100) Mean Corpuscular Hemoglobin 23 pg (25-35) Mean Corpuscular Hemoglobin Concent 31 g/dL (31-37) Red Cell Distribution Width 16.3 % (11.5-14.5) Platelet Count 287 x10^3/uL (140-400) Neutrophils (%) (Auto) 43 % (31-73) Lymphocytes (%) (Auto) 48 % (24-48) Monocytes (%) (Auto) 8 % (0-9) Eosinophils (%) (Auto) 1 % (0-3) Basophils (%) (Auto) 1 % (0-3) Neutrophils # (Auto) 2.4 x10^3uL (1.8-7.7) Lymphocytes # (Auto) 2.7 x10^3/uL (1.0-4.8) Monocytes # (Auto) 0.4 x10^3/uL (0.0-1.1) Eosinophils # (Auto) 0.1 x10^3/uL (0.0-0.7) Basophils # (Auto) 0.0 x10^3/uL (0.0-0.2) Sodium Level 142 mmol/L (136-145) Potassium Level 3.0 mmol/L (3.5-5.1) Chloride Level 103 mmol/L (98-107) Carbon Dioxide Level 26 mmol/L (21-32) Anion Gap 13 (6-14) Blood Urea Nitrogen 12 mg/dL (7-20) Creatinine 1.2 mg/dL (0.6-1.0) Estimated GFR (Cockcroft-Gault) 55.6 BUN/Creatinine Ratio 10 (6-20) Glucose Level 110 mg/dL (70-99) Calcium Level 8.5 mg/dL (8.5-10.1) Total Bilirubin 0.4 mg/dL (0.2-1.0) Aspartate Amino Transf (AST/SGOT) 59 U/L (15-37) Alanine Aminotransferase (ALT/SGPT) 101 U/L (14-59) Alkaline Phosphatase 110 U/L (46-116) Total Protein 6.7 g/dL (6.4-8.2) Albumin 2.9 g/dL (3.4-5.0) Albumin/Globulin Ratio 0.8 (1.0-1.7) DAVID JONES MD May 14, 2017 13:38
[2017-05-14] MEDS ORDERED: D5 IV ONE (13:45)
[2017-05-14] MEDS ORDERED: [UNRECOGNIZED DRUG - OTHER] IV ONE (13:45)
[2017-05-14] MEDS ORDERED: POTASSIUM CL IV ONE (13:45)
[2017-05-14] MEDS: ACETAMINOPHEN 325 MG TABLET. PO PRN (13:50)
--- NOTE | 2017-05-14 14:07 | PDOC ---
Subjective: Subjective: Tolerating small amounts of PO w/ nausea. No vomiting. No BM since surgery. RUQ pain. Wonders if she's going home today. Objective: Vital Signs: Vital Signs Date Time Temp Pulse Resp B/P (MAP) Pulse Ox O2 Delivery O2 Flow Rate FiO2 05/14/17 10:48 97.8 51 18 156/83 (107) 96 Room Air 97.8 05/14/17 09:49 2.0 Labs: Laboratory Tests Test 05/13/17 16:29 05/14/17 08:02 05/14/17 10:05 Glucose (Fingerstick) 133 mg/dL (70-99) 99 mg/dL (70-99) 156 mg/dL (70-99) PE: GEN: NAD, up to chair LUNGS: CTAB HEART: RRR ABD: RUQ incisional tenderness NEURO/PSYCH: A & O 3 A/P: S/p cholecystectomy RUQ pain, nausea Abnormal LFTs - improving -Hepatitis panel neg -liver bx pending -fatty liver on imaging Constipation -- Add Miralax. Continue PPI. Await liver biopsy. Outpt EGD and colonoscopy. JOSIE ANGELES May 14, 2017 14:07
[2017-05-14 14:42] VITALS: BP 149/80
[2017-05-14] MEDS ORDERED: POLYETHYLENE GLYCOL 3350 17 GM PACKET. PO SCH (15:00)
[2017-05-14] MEDS ORDERED: PROMETHAZINE 12.5 MG TABLET. PO PRN (16:00)
[2017-05-14 19:15] VITALS: BP 174/83
[2017-05-14] MEDS: POLYETHYLENE GLYCOL 3350 17 GM PACKET. PO SCH (21:02)
[2017-05-14 23:15] VITALS: BP 172/78
[2017-05-15 03:20] VITALS: BP 151/79
[2017-05-15 05:34] LABS: BASO % 0 % (0-3); EOS % 3 % (0-3); HEMATOCRIT 39.4 % (36.0-47.0); HEMOGLOBIN 12.4 g/dL (12.0-15.5); LYMPH # 2.8 x10^3/uL (1.0-4.8); LYMPH % 52 % (24-48); MEAN CORPUSCULAR HEMOGLOBIN 23 pg (25-35); MEAN CORPUSCULAR HGB CONC 31 g/dL (31-37); MEAN CORPUSCULAR VOLUME 74 fL (79-100); MONO % 11 % (0-9); NEUT % 34 % (31-73); PLATELET COUNT 309 x10^3/uL (140-400); RED BLOOD COUNT 5.33 x10^6/uL (3.50-5.40); RED CELL DISTRIBUTION WIDTH 16.3 % (11.5-14.5); WHITE BLOOD COUNT 5.3 x10^3/uL (4.0-11.0)
[2017-05-15 06:19] LABS: ALBUMIN 3.5 g/dL (3.4-5.0); ALBUMIN/GLOBULIN RATIO 0.9 (1.0-1.7); CALCIUM 9.3 mg/dL (8.5-10.1); CREATININE 1.1 mg/dL (0.6-1.0); GFR 61.5; POTASSIUM 3.7 mmol/L (3.5-5.1); TOTAL BILIRUBIN 0.5 mg/dL (0.2-1.0); TOTAL PROTEIN 7.6 g/dL (6.4-8.2)
[2017-05-15 07:00] VITALS: BP 166/73
[2017-05-15] MEDS: INSULIN ASPART 300 UNITS/3 ML INSULN.PEN SQ SCH ×3 (08:00→16:39)
[2017-05-15] MEDS: PANTOPRAZOLE 40 MG TABLET.DR. PO SCH ×2 (08:54→16:38)
[2017-05-15] MEDS: metFORMIN 500 MG TABLET PO SCH ×2 (08:55→16:37)
[2017-05-15] MEDS: METOPROLOL TART IMMED RELEASE 50 MG TABLET. PO SCH (08:55)
[2017-05-15] MEDS: amLODIPine BESYLATE 5 MG TABLET PO SCH (08:55)
[2017-05-15] MEDS: GEMFIBROZIL 600 MG TABLET. PO SCH (08:56)
[2017-05-15] MEDS: POLYETHYLENE GLYCOL 3350 17 GM PACKET. PO SCH (09:00)
[2017-05-15] MEDS: DOCUSATE SODIUM 100 MG CAPSULE. PO PRN (09:00)
[2017-05-15] MEDS: ACETAMINOPHEN 325 MG TABLET. PO PRN (09:09)
[2017-05-15 11:00] VITALS: BP 145/76
[2017-05-15] MEDS ORDERED: Nicotine 14MG TD (11:29)
[2017-05-15] MEDS ORDERED: OXYC1TAB7 PO (11:29)
[2017-05-15] MEDS ORDERED: GUAI600T47 PO (11:29)
[2017-05-15] MEDS ORDERED: FLUCONAZOLE 100 MG TABLET. PO ONE (12:00)
--- NOTE | 2017-05-15 12:20 | PDOC ---
SURGICAL PROGRESS NOTE Subjective no further nausea, tolerating diet pain managed Vital Signs Vital Signs Date Time Temp Pulse Resp B/P (MAP) Pulse Ox O2 Delivery O2 Flow Rate FiO2 05/15/17 11:00 98.2 56 18 145/76 (99) 94 Nasal Cannula 98.2 05/14/17 23:15 2.0 I&O Intake and Output 05/15/17 07:00 Intake Total 1900 ml Output Total 40 ml Balance 1860 ml Intake Oral 1900 ml Drainage Total 40 ml # Voids 7 General: Alert, Oriented X3, Cooperative, No acute distress Abdomen: Soft, Other (lap sites c/d/i, no erythema, ELISEO serous ) Labs Laboratory Tests Test 05/13/17 16:29 05/14/17 03:55 05/14/17 08:02 05/14/17 10:05 Glucose (Fingerstick) 133 mg/dL (70-99) 99 mg/dL (70-99) 156 mg/dL (70-99) White Blood Count 5.7 x10^3/uL (4.0-11.0) Red Blood Count 4.82 x10^6/uL (3.50-5.40) Hemoglobin 11.1 g/dL (12.0-15.5) Hematocrit 35.3 % (36.0-47.0) Mean Corpuscular Volume 73 fL (79-100) Mean Corpuscular Hemoglobin 23 pg (25-35) Mean Corpuscular Hemoglobin Concent 31 g/dL (31-37) Red Cell Distribution Width 16.3 % (11.5-14.5) Platelet Count 287 x10^3/uL (140-400) Neutrophils (%) (Auto) 43 % (31-73) Lymphocytes (%) (Auto) 48 % (24-48) Monocytes (%) (Auto) 8 % (0-9) Eosinophils (%) (Auto) 1 % (0-3) Basophils (%) (Auto) 1 % (0-3) Neutrophils # (Auto) 2.4 x10^3uL (1.8-7.7) Lymphocytes # (Auto) 2.7 x10^3/uL (1.0-4.8) Monocytes # (Auto) 0.4 x10^3/uL (0.0-1.1) Eosinophils # (Auto) 0.1 x10^3/uL (0.0-0.7) Basophils # (Auto) 0.0 x10^3/uL (0.0-0.2) Sodium Level 142 mmol/L (136-145) Potassium Level 3.0 mmol/L (3.5-5.1) Chloride Level 103 mmol/L (98-107) Carbon Dioxide Level 26 mmol/L (21-32) Anion Gap 13 (6-14) Blood Urea Nitrogen 12 mg/dL (7-20) Creatinine 1.2 mg/dL (0.6-1.0) Estimated GFR (Cockcroft-Gault) 55.6 BUN/Creatinine Ratio 10 (6-20) Glucose Level 110 mg/dL (70-99) Calcium Level 8.5 mg/dL (8.5-10.1) Total Bilirubin 0.4 mg/dL (0.2-1.0) Aspartate Amino Transf (AST/SGOT) 59 U/L (15-37) Alanine Aminotransferase (ALT/SGPT) 101 U/L (14-59) Alkaline Phosphatase 110 U/L (46-116) Total Protein 6.7 g/dL (6.4-8.2) Albumin 2.9 g/dL (3.4-5.0) Albumin/Globulin Ratio 0.8 (1.0-1.7) Test 05/14/17 16:21 05/14/17 21:16 05/15/17 04:55 05/15/17 07:23 Glucose (Fingerstick) 102 mg/dL (70-99) 140 mg/dL (70-99) 99 mg/dL (70-99) White Blood Count 5.3 x10^3/uL (4.0-11.0) Red Blood Count 5.33 x10^6/uL (3.50-5.40) Hemoglobin 12.4 g/dL (12.0-15.5) Hematocrit 39.4 % (36.0-47.0) Mean Corpuscular Volume 74 fL (79-100) Mean Corpuscular Hemoglobin 23 pg (25-35) Mean Corpuscular Hemoglobin Concent 31 g/dL (31-37) Red Cell Distribution Width 16.3 % (11.5-14.5) Platelet Count 309 x10^3/uL (140-400) Neutrophils (%) (Auto) 34 % (31-73) Lymphocytes (%) (Auto) 52 % (24-48) Monocytes (%) (Auto) 11 % (0-9) Eosinophils (%) (Auto) 3 % (0-3) Basophils (%) (Auto) 0 % (0-3) Neutrophils # (Auto) 1.8 x10^3uL (1.8-7.7) Lymphocytes # (Auto) 2.8 x10^3/uL (1.0-4.8) Monocytes # (Auto) 0.6 x10^3/uL (0.0-1.1) Eosinophils # (Auto) 0.1 x10^3/uL (0.0-0.7) Basophils # (Auto) 0.0 x10^3/uL (0.0-0.2) Sodium Level 142 mmol/L (136-145) Potassium Level 3.7 mmol/L (3.5-5.1) Chloride Level 103 mmol/L (98-107) Carbon Dioxide Level 27 mmol/L (21-32) Anion Gap 12 (6-14) Blood Urea Nitrogen 14 mg/dL (7-20) Creatinine 1.1 mg/dL (0.6-1.0) Estimated GFR (Cockcroft-Gault) 61.5 BUN/Creatinine Ratio 13 (6-20) Glucose Level 122 mg/dL (70-99) Calcium Level 9.3 mg/dL (8.5-10.1) Total Bilirubin 0.5 mg/dL (0.2-1.0) Aspartate Amino Transf (AST/SGOT) 33 U/L (15-37) Alanine Aminotransferase (ALT/SGPT) 86 U/L (14-59) Alkaline Phosphatase 124 U/L (46-116) Total Protein 7.6 g/dL (6.4-8.2) Albumin 3.5 g/dL (3.4-5.0) Albumin/Globulin Ratio 0.9 (1.0-1.7) Test 05/15/17 11:37 Glucose (Fingerstick) 108 mg/dL (70-99) Laboratory Tests Test 05/14/17 16:21 05/14/17 21:16 05/15/17 04:55 05/15/17 07:23 Glucose (Fingerstick) 102 mg/dL (70-99) 140 mg/dL (70-99) 99 mg/dL (70-99) White Blood Count 5.3 x10^3/uL (4.0-11.0) Red Blood Count 5.33 x10^6/uL (3.50-5.40) Hemoglobin 12.4 g/dL (12.0-15.5) Hematocrit 39.4 % (36.0-47.0) Mean Corpuscular Volume 74 fL (79-100) Mean Corpuscular Hemoglobin 23 pg (25-35) Mean Corpuscular Hemoglobin Concent 31 g/dL (31-37) Red Cell Distribution Width 16.3 % (11.5-14.5) Platelet Count 309 x10^3/uL (140-400) Neutrophils (%) (Auto) 34 % (31-73) Lymphocytes (%) (Auto) 52 % (24-48) Monocytes (%) (Auto) 11 % (0-9) Eosinophils (%) (Auto) 3 % (0-3) Basophils (%) (Auto) 0 % (0-3) Neutrophils # (Auto) 1.8 x10^3uL (1.8-7.7) Lymphocytes # (Auto) 2.8 x10^3/uL (1.0-4.8) Monocytes # (Auto) 0.6 x10^3/uL (0.0-1.1) Eosinophils # (Auto) 0.1 x10^3/uL (0.0-0.7) Basophils # (Auto) 0.0 x10^3/uL (0.0-0.2) Sodium Level 142 mmol/L (136-145) Potassium Level 3.7 mmol/L (3.5-5.1) Chloride Level 103 mmol/L (98-107) Carbon Dioxide Level 27 mmol/L (21-32) Anion Gap 12 (6-14) Blood Urea Nitrogen 14 mg/dL (7-20) Creatinine 1.1 mg/dL (0.6-1.0) Estimated GFR (Cockcroft-Gault) 61.5 BUN/Creatinine Ratio 13 (6-20) Glucose Level 122 mg/dL (70-99) Calcium Level 9.3 mg/dL (8.5-10.1) Total Bilirubin 0.5 mg/dL (0.2-1.0) Aspartate Amino Transf (AST/SGOT) 33 U/L (15-37) Alanine Aminotransferase (ALT/SGPT) 86 U/L (14-59) Alkaline Phosphatase 124 U/L (46-116) Total Protein 7.6 g/dL (6.4-8.2) Albumin 3.5 g/dL (3.4-5.0) Albumin/Globulin Ratio 0.9 (1.0-1.7) Test 05/15/17 11:37 Glucose (Fingerstick) 108 mg/dL (70-99) Problem List Problems Medical Problems: (1) Abdominal pain Status: Acute (2) Nausea and vomiting Status: Acute Assessment/Plan s/p lap radha low drain output DC drain plans to DC home Problems: ALEXIA HALL APRN May 15, 2017 12:20
[2017-05-15] MEDS ORDERED: BISACODYL 5 MG TABLET.DR. PO ONE (12:30)
--- NOTE | 2017-05-15 12:30 | PDOC ---
Subjective: Subjective: No BM yet, eating better. Wants something for vaginal yeast infection. Objective: Vital Signs: Vital Signs Date Time Temp Pulse Resp B/P (MAP) Pulse Ox O2 Delivery O2 Flow Rate FiO2 05/15/17 11:00 98.2 56 18 145/76 (99) 94 Nasal Cannula 98.2 05/14/17 23:15 2.0 Labs: Laboratory Tests Test 05/14/17 16:21 05/14/17 21:16 05/15/17 07:23 05/15/17 11:37 Glucose (Fingerstick) 102 mg/dL (70-99) 140 mg/dL (70-99) 99 mg/dL (70-99) 108 mg/dL (70-99) PE: GEN: NAD, eating lunch LUNGS: CTAB HEART: RRR ABD: less tender, ELISEO serosang NEURO/PSYCH: A & O 3 A/P: S/p cholecystectomy Abnormal LFTs - improved -Hepatitis panel neg, liver bx pending Constipation -- Continue constipation treatment, add Dulcolax x 1. Await liver biopsy. Outpt EGD and colonoscopy. Note plans for drain removal and DC. JOSIE ANGELES May 15, 2017 12:30
[2017-05-15 15:00] VITALS: BP 176/72
[2017-05-15] MEDS: oxyCODONE/APAP 5/325 1 TAB TABLET PO PRN (16:38)
--- NOTE | 2017-05-17 18:39 | DS ---
DATE OF DISCHARGE: 05/15/2017 CHIEF COMPLAINT: Nausea, vomiting, abdominal pain. HOSPITAL COURSE: The patient is a 61-year-old woman who presented to the hospital with abdominal pain in the right upper quadrant as well as nausea and vomiting. CT did not reveal obvious signs of cholecystitis; however, on workup with surgery as well as GI services, she was deemed to suffer from cholelithiasis and was therefore taken to "laparoscopic cholecystectomy" on 05/12/2017. She recovered slowly with initially copious ELISEO drainage. Her recovery was also slowed by persistent nausea and no flatus. However, by the time of discharge, the patient was able to tolerate food without any difficulties and was passing gas. ELISEO drain was discontinued prior to discharge. PHYSICAL EXAMINATION: VITAL SIGNS: Show blood pressure of 156/83, heart rate of 51, respiratory rate at 18. She is afebrile. GENERAL: Alert and oriented, in no acute distress. LUNGS: Clear. HEART: Regular rate and rhythm. ABDOMEN: Mild tenderness to palpation. Laparoscopy trocar sites are well healing. No signs of infections. EXTREMITIES: Show no edema. DISCHARGE DIAGNOSES: Cholecystitis. DISCHARGE DISPOSITION: To home. DISCHARGE CONDITION: Improved. DISCHARGE MEDICATIONS: Please refer to MAR. DISCHARGE INSTRUCTIONS: The patient will follow up with Surgery in 10 days. DAVID JONES MD DR: UR/nts JOB#: [id number] / [id number] MIGUEL ANGEL
== END 2017-05-15 18:30 | disposition home or self-care (01) | DRG 417 ==
LOC: ER 01:15 → 5 SOUTH 03:40
PROVIDERS: ADMIT Internal Medicine; ATTEND Internal Medicine
PROC: 0FB04ZX Excision of Liver, Percutaneous Endoscopic Approach, Diagnostic (ICD-10-PCS; 2017-05-12)
PROC: BF101ZZ Fluoroscopy of Bile Ducts using Low Osmolar Contrast (ICD-10-PCS; 2017-05-12)
PROC: 0FT44ZZ Resection of Gallbladder, Percutaneous Endoscopic Approach (ICD-10-PCS; principal; 2017-05-12 12:15)
DX: K80.20 Calculus of gallbladder without cholecystitis without obstruction (principal); K25.4 Chronic or unspecified gastric ulcer with hemorrhage; N30.90 Cystitis, unspecified without hematuria; K75.9 Inflammatory liver disease, unspecified; K76.0 Fatty (change of) liver, not elsewhere classified; B37.3 Candidiasis of vulva and vagina; E04.1 Nontoxic single thyroid nodule; E11.9 Type 2 diabetes mellitus without complications; K29.71 Gastritis, unspecified, with bleeding; J98.11 Atelectasis; E66.9 Obesity, unspecified; Z68.30 Body mass index [BMI] 30.0-30.9, adult; E78.5 Hyperlipidemia, unspecified; E87.6 Hypokalemia; F14.10 Cocaine abuse, uncomplicated; F17.210 Nicotine dependence, cigarettes, uncomplicated; I10 Essential (primary) hypertension; K21.9 Gastro-esophageal reflux disease without esophagitis; R07.89 Other chest pain; K44.9 Diaphragmatic hernia without obstruction or gangrene; K57.30 Diverticulosis of large intestine without perforation or abscess without bleeding; K59.00 Constipation, unspecified; K66.0 Peritoneal adhesions (postprocedural) (postinfection); Z82.49 Family history of ischemic heart disease and other diseases of the circulatory system; Z83.3 Family history of diabetes mellitus; Z88.5 Allergy status to narcotic agent; Z90.710 Acquired absence of both cervix and uterus; Z90.49 Acquired absence of other specified parts of digestive tract; T39.395A Adverse effect of other nonsteroidal anti-inflammatory drugs [NSAID], initial encounter
CPT/HCPCS: 36415; 71260; 74177; 74181; 74300; 76705; 80048; 80053; 80074; 80076; 80307; 82553; 82962; 83540; 83550; 83690; 83880; 84443; 84484; 85025; 85379; 85610; 86644; 86645; 86663; 86664; 88304; 88307; 88313; 93005; 96374; 96375; 96376; 99406; C9113; J0690; J1100; J1815; J2250; J2270; J2405; J2704; J3010; J3490; J7030; J7042; J7120; Q9967; S0028; 99285-25; G0479; J2001

== ENCOUNTER 2017-07-19 20:51 | Emergency (ER) | payer SELFPAY ==
[2017-07-19 21:03] LABS: POC GLUCOSE 163 mg/dL (70-99)
[2017-07-19 21:21] LABS: ADD MAN DIFF? NO
[2017-07-19 21:24] LABS: BASO # 0.1 x10^3/uL (0.0-0.2); BASO % 1 % (0-3); EOS # 0.4 x10^3/uL (0.0-0.7); EOS % 6 % (0-3); HEMATOCRIT 38.8 % (36.0-47.0); HEMOGLOBIN 12.5 g/dL (12.0-15.5); LYMPH # 3.2 x10^3/uL (1.0-4.8); LYMPH % 44 % (24-48); MEAN CORPUSCULAR HEMOGLOBIN 24 pg (25-35); MEAN CORPUSCULAR HGB CONC 32 g/dL (31-37); MEAN CORPUSCULAR VOLUME 73 fL (79-100); MONO # 0.6 x10^3/uL (0.0-1.1); MONO % 9 % (0-9); NEUT % 41 % (31-73); PLATELET COUNT 412 x10^3/uL (140-400); RED CELL DISTRIBUTION WIDTH 15.1 % (11.5-14.5); WHITE BLOOD COUNT 7.3 x10^3/uL (4.0-11.0)
[2017-07-19 21:33] LABS: ANION GAP 10 (6-14); BLOOD UREA NITROGEN 17 mg/dL (7-20); BUN/CREATININE RATIO 11 (6-20); CALCIUM 9.3 mg/dL (8.5-10.1); CARBON DIOXIDE 33 mmol/L (21-32); CHLORIDE 102 mmol/L (98-107); CREATININE 1.5 mg/dL (0.6-1.0); GLUCOSE 164 mg/dL (70-99); POTASSIUM 3.5 mmol/L (3.5-5.1); SODIUM 145 mmol/L (136-145)
[2017-07-19] MEDS: MORPHINE SULFATE 2 MG/ML DISP.SYRIN. IV/SQ (21:34)
[2017-07-19] MEDS: ACETAMINOPHEN 500 MG TABLET PO (21:34)
[2017-07-19 21:38] LABS: ALBUMIN 3.5 g/dL (3.4-5.0); ALBUMIN/GLOBULIN RATIO 0.7 (1.0-1.7); ALK PHOS 137 U/L (46-116); ALT (SGPT) 14 U/L (14-59); AST (SGOT) 16 U/L (15-37); TOTAL BILIRUBIN 0.2 mg/dL (0.2-1.0); TOTAL PROTEIN 8.2 g/dL (6.4-8.2)
[2017-07-19 21:41] LABS: BILIRUBIN,URINE SMALL (NEG); CLARITY,URINE CLOUDY; COLOR,URINE YELLOW; GLUCOSE,URINE NEGATIVE (NEG); NITRITE,URINE NEGATIVE (NEG); PROTEIN,URINE 30 mg/dL (NEG-TRACE)
[2017-07-19 21:51] LABS: BACTERIA,URINE FEW /HPF (0-FEW); RBC,URINE RARE /HPF (0-2); SQUAMOUS EPITHELIAL CELL,UR MANY /LPF
[2017-07-19 22:02] LABS: INFLUENZA A PATIENT NEGATIVE (NEGATIVE); INFLUENZA B PATIENT NEGATIVE (NEGATIVE); OBC FLU VALID
[2017-07-19 22:27] LABS: CKMB INDEX 0.9 % (0-4); CKMB MASS 0.8 ng/mL (0.0-3.6); CREATINE KINASE 91 U/L (26-192)
== END 2017-07-19 22:40 | disposition home or self-care (01) ==
LOC: ER 20:51
DX: M62.838 Other muscle spasm (principal); M62.830 Muscle spasm of back; I10 Essential (primary) hypertension; E11.9 Type 2 diabetes mellitus without complications; E89.0 Postprocedural hypothyroidism; Z90.710 Acquired absence of both cervix and uterus; Z88.8 Allergy status to other drugs, medicaments and biological substances; Z88.5 Allergy status to narcotic agent
CPT/HCPCS: 36415; 70450; 80053; 81001; 82553; 82962; 85025; 87086; 87804; 87804-59; 93005; 96374; 99285-25; J2270

== ENCOUNTER 2018-09-05 07:03 | Inpatient (IN) | payer MEDICAID, OTHER ==
[~2018-09-05] VITALS: Ht 167.6 cm; Wt 91.6 kg
[~2018-09-05 07:03] MED LIST changes: -AMLO10TA2 PO; +AMLO10TA8 PO; -GEMF600T3 PO; +GEMF600T8 PO; +GUAI600T47 PO; +HYDR-2145 PO; +METF500T16 PO; -METF500T4 PO; -METO50TA2 PO; +METO50TA6 PO; +Nicotine 14MG TD; -OXYC-327 PO; +OXYC1TAB19 PO; +POTA20TA4 PO
--- NOTE | 2018-09-05 07:44 | PHYS DOC ---
Past Medical History Past Medical History: Diabetes-Type II, High Cholesterol, Hypertension Past Surgical History: Cholecystectomy, Hysterectomy, Other Additional Past Surgical Histo: Left knee, partial thyroid Alcohol Use: Occasionally Drug Use: Cocaine Adult General Chief Complaint Chief Complaint: Neck Pain HPI HPI Patient is a 62 year old female who presents with diffuse muscle cramps. This is been going on for the past several days. Last time it happened she was noted to be hypokalemic. She is on potassium supplementation. She is getting no relief with her Robaxin. Discomfort is moderate in intensity. And diffuse.[] Review of Systems Review of Systems Constitutional: Denies fever or chills [] Eyes: Denies change in visual acuity, redness, or eye pain [] HENT: Denies nasal congestion or sore throat [] Respiratory: Denies cough or shortness of breath [] Cardiovascular: No additional information not addressed in HPI [] GI: Denies abdominal pain, nausea, vomiting, bloody stools or diarrhea [] : Denies dysuria or hematuria [] Musculoskeletal: Denies back pain or joint pain [] Integument: Denies rash or skin lesions [] Neurologic: Denies headache, focal weakness or sensory changes [] Endocrine: Denies polyuria or polydipsia [] All other systems were reviewed and found to be within normal limits, except as documented in this note. Current Medications Current Medications Current Medications Medications (Trade) Dose Ordered Sig/Shira Start Time Stop Time Status Last Admin Dose Admin Magnesium Sulfate/ Dextrose 100 ml @ 25 mls/hr 1X ONCE 09/05/18 08:30 09/05/18 12:29 09/05/18 08:29 25 MLS/HR Potassium Chloride (Klor-Con) 40 meq 1X ONCE 09/05/18 08:30 09/05/18 08:31 DC 09/05/18 08:36 40 MEQ Allergies Allergies Allergies Coded Allergies Type Severity Reaction Last Updated Verified lisinopril Allergy Intermediate 07/07/15 Yes codeine Adverse Reaction Intermediate Itching 07/13/15 Yes Physical Exam Physical Exam Constitutional: Well developed, well nourished, no acute distress, non-toxic appearance. [] HENT: Normocephalic, atraumatic, bilateral external ears normal, oropharynx moist, no oral exudates, nose normal. [] Eyes: PERRLA, EOMI, conjunctiva normal, no discharge. [] Neck: Normal range of motion, no tenderness, supple, no stridor. [] Cardiovascular:Heart rate regular rhythm, no murmur [] Lungs & Thorax: Bilateral breath sounds clear to auscultation [] Abdomen: Bowel sounds normal, soft, no tenderness, no masses, no pulsatile masses. [] Skin: Warm, dry, no erythema, no rash. [] Back: No tenderness, no CVA tenderness. [] Extremities: No tenderness, no cyanosis, no clubbing, ROM intact, no edema. [] Neurologic: Alert and oriented X 3, normal motor function, normal sensory function, no focal deficits noted. [] Psychologic: Affect normal, judgement normal, mood normal. [] Current Patient Data Vital Signs Vital Signs Date Time Temp Pulse Resp B/P (MAP) Pulse Ox O2 Delivery O2 Flow Rate FiO2 09/05/18 07:15 98.0 87 16 139/78 (98) 100 Room Air 98.0 Lab Values Laboratory Tests Test 09/05/18 07:45 Sodium Level 140 mmol/L (136-145) Potassium Level 2.8 mmol/L (3.5-5.1) *L Chloride Level 97 mmol/L (98-107) L Carbon Dioxide Level 30 mmol/L (21-32) Anion Gap 13 (6-14) Blood Urea Nitrogen 14 mg/dL (7-20) Creatinine 1.1 mg/dL (0.6-1.0) H Estimated GFR (Cockcroft-Gault) 61.3 Glucose Level 200 mg/dL (70-99) H Calcium Level 9.2 mg/dL (8.5-10.1) Magnesium Level 1.1 mg/dL (1.8-2.4) L Laboratory Tests 09/05/18 07:45 EKG EKG [] Radiology/Procedures Radiology/Procedures [] Course & Med Decision Making Course & Med Decision Making Pertinent Labs and Imaging studies reviewed. (See chart for details) ED course and medical decision making: Patient arrived, was placed in bed, and tolerated exam well. After the return of the laboratory findings these were discussed with the patient who voiced understanding. IV access was established and she was started on a magnesium infusion given potassium orally. Due to the low level of both the magnesium and potassium, consultation was made with the hospitalist service for admission and they graciously accepted. Patient was admitted in improved condition[] Dragon Disclaimer Dragon Disclaimer This electronic medical record was generated, in whole or in part, using a voice recognition dictation system. Departure Departure Impression: Primary Impression: Hypomagnesemia Additional Impression: Hypokalemia Disposition: ADMITTED INPATIENT Admitting Physician: Other Condition: IMPROVED Referrals: NO PCP (PCP) Problem Qualifiers CANDIDA SIU DO Sep 05, 2018 07:44
[2018-09-05 08:07] LABS: CALCIUM 9.2 mg/dL (8.5-10.1); CREATININE 1.1 mg/dL (0.6-1.0); GFR 61.3; MAGNESIUM 1.1 mg/dL (1.8-2.4)
[2018-09-05 08:11] LABS: POTASSIUM 2.8 mmol/L (3.5-5.1)
[2018-09-05] MEDS ORDERED: MAGNESIUM SULFATE 4GM 100 ML IV ONE ×2 (08:30→11:15)
[2018-09-05] MEDS ORDERED: POTASSIUM CHLORIDE 20 MEQ TABLET.ER. PO ONE (08:30)
--- NOTE | 2018-09-05 08:56 | PDOC1 ---
History and Physical Date of Admission Date of Admission DATE: 09/05/18 TIME: 08:55 Identification/Chief Complaint Chief Complaint Neck spasms, muscle weakness Source Source: Chart review, Patient History of Present Illness History of Present Illness 62 year old female w/ PMHx HTN, HLD, DM, smoker who presents with diffuse muscle cramps. This is been going on for the past several days. Last time it happened she was noted to be hypokalemic. She is on potassium supplementation. She is getting no relief with her Robaxin. Discomfort is moderate in intensity. And diffuse. Found with potassium of 2.8 and magnesium of 1.1 and unable to walk with severe cramping of bilateral legs, neck, back. She is a retired cook Past Medical History Cardiovascular: HTN Pulmonary: No pertinent hx GI: No pertinent hx Heme/Onc: No pertinent hx Hepatobiliary: No pertinent hx Psych: No pertinent hx Rheumatologic: No pertinent hx Infectious disease: No pertinent hx ENT: No pertinent hx Renal/: No pertinent hx Endocrine: Diabetes Dermatology: No pertinent hx Past Surgical History Past Surgical History: Hysterectomy, Other Family History Family History: Family History Unknown Social History Smoke: <1 pack per day ALCOHOL: social Drugs: None Current Problem List Problem List Problems Medical Problems: (1) Hypokalemia Status: Acute (2) Hypomagnesemia Status: Acute Current Medications Current Medications Current Medications Magnesium Sulfate/ Dextrose 100 ml @ 25 mls/hr 1X ONCE IV Last administered on 09/05/18at 08:29; Start 09/05/18 at 08:30; Stop 09/05/18 at 12:29 Potassium Chloride (Klor-Con) 40 meq 1X ONCE PO Last administered on 09/05/18at 08:36; Start 09/05/18 at 08:30; Stop 09/05/18 at 08:31; Status DC Ondansetron HCl (Zofran) 4 mg PRN Q8HRS PRN IV NAUSEA/VOMITING; Start 09/05/18 at 09:00; Stop 09/06/18 at 08:59 Acetaminophen (Tylenol) 650 mg PRN Q4HRS PRN PO FEVER; Start 09/05/18 at 09:00; Stop 09/06/18 at 08:59 Diazepam (Valium) 2 mg 1X ONCE PO ; Start 09/05/18 at 09:00; Stop 09/05/18 at 09: 01; Status UNV Active Scripts Active Cyclobenzaprine Hcl 10 Mg Tablet 1 Tab PO TID [Nicotine 14MG] 1 PATCH Patch 1 Patch TD PRN DAILY PRN Mucinex (Guaifenesin) 600 Mg Tablet.er 600 Mg PO PRN BID PRN Oxycodone-Acetaminophen 5-325 (Oxycodone Hcl/Acetaminophen) 1 Each Tablet 1 Each PO PRN Q6HRS PRN Oxycodone-Acetaminophen 5-325 (Oxycodone Hcl/Acetaminophen) 1 Each Tablet 1 Tab PO PRN Q4HRS PRN Reported Klor-Con M20 (Potassium Chloride) 20 Meq Tab.er.prt 1 Tab PO DAILY Hydrochlorothiazide Tablet (Hydrochlorothiazide) 25 Mg Tablet 25 Mg PO DAILY Percocet 7.5-325 Mg Tablet (Oxycodone/Acetaminophen) 1 Each Tablet 1 Tab PO PRN Q4HRS PRN Amlodipine Besylate 10 Mg Tablet 10 Mg PO DAILY Cyclobenzaprine Hcl 10 Mg Tablet 10 Mg PO TID PRN Metoprolol Tartrate 50 Mg Tablet 1 Tab PO BID Gemfibrozil 600 Mg Tablet 600 Mg PO BID Metformin Hcl 500 Mg Tablet 1 Tab PO BID Allergies Allergies: Coded Allergies: lisinopril (Verified Allergy, Intermediate, 07/07/15) codeine (Verified Adverse Reaction, Intermediate, Itching, 07/13/15) ROS General: YES: Fatigue, Malaise; No: Chills, Night Sweats, Appetite, Other PSYCHOLOGICAL ROS: YES: Anxiety; No: Behavioral Disorder, Concentration difficultie, Decreased libido, Depression, Disorientation, Hallucinations, Hostility, Irritablity, Memory difficulties, Mood Swings, Obsessive thoughts, Physical abuse, Sexual abuse, Sleep disturbances, Suicidal ideation, Other Eyes: No Blurry vision, No Decreased vision, No Double vision, No Dry eyes, No Excessive tearing, No Eye Pain, No Itchy Eyes, No Loss of vision, No Photophobia , No Scotomata, No Uses contacts, No Uses glasses, No Other HEENT: YES: Heacaches; No: Visual Changes, Hearing change, Nasal congestion, Nasal discharge, Oral lesions, Sinus pain, Sore Throat, Epistaxis, Sneezing, Snoring, Tinnitus, Vertigo, Vocal changes, Other ALLERGY AND IMMUNOLOGY: No: Hives, Insect Bite Sensitivity, Itchy/Watery Eyes, Nasal Congestion, Post Nasal Drip, Seasonal Allergies, Other Hematological and Lymphatic: No: Bleeding Problems, Blood Clots, Blood Transfusions, Brusing, Night Sweats, Pallor, Swollen Lymph Nodes, Other ENDOCRINE: No: Breast Changes, Galactorrhea, Hair Pattern Changes, Hot Flashes , Malaise/lethargy, Mood Swings, Palpitations, Polydipsia/polyuria, Skin Changes , Temperature Intolerance, Unexpected Weight Changes, Other Breast: No New/Changing Breast Lumps, No Nipple changes, No Nipple discharge, No Other Respiratory: YES: Shortness of breath; No: Cough, Hemoptysis, Orthopnea, Pleuritic Pain, SOB with excertion, Sputum Changes, Stridor, Tachypnea, Wheezing, Other Cardiovascular: No Chest Pain, No Palpitations, No Orthopnea, No Paroxysmal Noc. Dyspnea, No Edema, No Lt Headedness, No Other Gastrointestinal: Yes Nausea; No Vomiting, No Abdominal Pain, No Diarrhea, No Constipation, No Melena, No Hematochezia, No Other Genitourinary: No Dysuria, No Frequency, No Incontinence, No Hematuria, No Retention, No Discharge, No Urgency, No Pain, No Flank Pain, No Other, No , No , No , No , No , No , No Musculoskeletal: Yes Gait Disturbance, Yes Joint Pain, Yes Muscle Pain, Yes Muscular Weakness; No Joint Stiffness, No Joint Swelling, No Pain In:, No Swelling In:, No Other Neurological: Yes Gait Disturbance; No Behavorial Changes, No Bowel/Bladder ControlChng, No Confusion, No Dizziness, No Headaches, No Impaired Coord/balance, No Memory Loss, No Numbness/ Tingling, No Seizures, No Speech Problems, No Tremors, No Visual Changes, No Weakness, No Other Skin: No Dry Skin, No Eczema, No Hair Changes, No Lumps, No Mole Changes, No Mottling, No Nail Changes, No Pruritus, No Rash, No Skin Lesion Changes, No Other, No Acne Physical Exam General: Alert, Oriented X3, Cooperative, No acute distress HEENT: Atraumatic, PERRLA, EOMI, Mucous membr. moist/pink Lungs: Clear to auscultation, Normal air movement Heart: S1S2, RRR, no gallops, no murmurs Abdomen: Normal bowel sounds, Soft, No tenderness, No hepatosplenomegaly, No masses Extremities: No clubbing, No cyanosis, No edema, Normal pulses Skin: No rashes, No breakdown, No significant lesion Neuro: Normal speech, Normal tone, Sensation intact, Cranial nerves 3-12 NL, Reflexes 2+, Other (4/5 all axillary muscle groups) Psych/Mental Status: Mental status NL, Mood NL Vitals Vitals Vital Signs Date Time Temp Pulse Resp B/P (MAP) Pulse Ox O2 Delivery O2 Flow Rate FiO2 09/05/18 07:15 98.0 87 16 139/78 (98) 100 Room Air 98.0 Labs Labs Laboratory Tests Test 09/05/18 07:45 Sodium Level 140 mmol/L (136-145) Potassium Level 2.8 mmol/L (3.5-5.1) Chloride Level 97 mmol/L (98-107) Carbon Dioxide Level 30 mmol/L (21-32) Anion Gap 13 (6-14) Blood Urea Nitrogen 14 mg/dL (7-20) Creatinine 1.1 mg/dL (0.6-1.0) Estimated GFR (Cockcroft-Gault) 61.3 Glucose Level 200 mg/dL (70-99) Calcium Level 9.2 mg/dL (8.5-10.1) Magnesium Level 1.1 mg/dL (1.8-2.4) Laboratory Tests Test 09/05/18 07:45 Sodium Level 140 mmol/L (136-145) Potassium Level 2.8 mmol/L (3.5-5.1) Chloride Level 97 mmol/L (98-107) Carbon Dioxide Level 30 mmol/L (21-32) Anion Gap 13 (6-14) Blood Urea Nitrogen 14 mg/dL (7-20) Creatinine 1.1 mg/dL (0.6-1.0) Estimated GFR (Cockcroft-Gault) 61.3 Glucose Level 200 mg/dL (70-99) Calcium Level 9.2 mg/dL (8.5-10.1) Magnesium Level 1.1 mg/dL (1.8-2.4) VTE Prophylaxis Ordered VTE Prophylaxis Devices: Yes VTE Pharmacological Prophylaxi: No Assessment/Plan Assessment/Plan A/P: Unable to walk - muscle cramps, likely 2/2 electrolyte disturbance. will have PT /OT evaluate Hypokalemia - K 2.8, will place on tele and give IV Kcl Hypomagnesemia - 1.1, will replace 8 grams and check in AM HTN - avoid diuretics with her history HLD - diet control DM - will place on sliding scale Smoker - counseled on cessation, will offer nicotine patch FEN - ADA diet PPX - SCDs FULL CODE Inpatient for inability to walk likely 2/2 electrolyte derangement, likely 2 midnights to correct this. If not corrected soon, will ask nephrology for assistance. TAE CANO MD Sep 05, 2018 08:56
[2018-09-05] MEDS ORDERED: ONDANSETRON PF 4 MG/2 ML VIAL. IV PRN (09:00)
[2018-09-05] MEDS ORDERED: ACETAMINOPHEN 325 MG TABLET. PO PRN (09:00)
[2018-09-05] MEDS ORDERED: diazePAM 2 MG TABLET PO ONE (09:00)
[2018-09-05] MEDS ORDERED: OMEP40CA5 PO (09:46)
[2018-09-05] MEDS ORDERED: NAPR-683 PO (09:46)
[2018-09-05] MEDS ORDERED: METH-37 PO (09:46)
[2018-09-05 09:48] VITALS: BP 149/91
[2018-09-05] MEDS ORDERED: METO50TA6 PO (09:50)
[2018-09-05] MEDS ORDERED: POTA10TA12 PO (09:50)
[2018-09-05] MEDS ORDERED: AMIT10TA PO (09:50)
--- NOTE | 2018-09-05 10:43 | NUR ---
Patient received to room 508 per [facility] and moved to bed per transport. Patient alert and oriented times four. Patient received information folder to hospital, code for release of information to family and friends and verb. understanding fall protocol. Fall contract witnessed. Patient verb. understanding orientation to medical monitor, orientation to room and unit. See admission and assessment. Side rails up times two, call light at hand. Patient verb. understanding up with assistance. Magnesium IV infusing per order fight forearm started in ER. Continue cares and monitor.
[2018-09-05 11:00] VITALS: BP 144/82
[2018-09-05] MEDS ORDERED: NICOTINE 14MG PATCH. TD PRN (11:30)
[2018-09-05] MEDS: POTASSIUM CL 40MEQ D5-0.45NACL 1,000 ML IV SCH (11:47)
[2018-09-05] MEDS: PANTOPRAZOLE 40 MG TABLET.DR. PO SCH (11:48)
[2018-09-05] MEDS: tiZANidine 4 MG TABLET. PO PRN (11:48)
[2018-09-05] MEDS: NAPROXEN 250 MG TABLET PO SCH ×2 (11:49→21:37)
[2018-09-05] MEDS: amLODIPine BESYLATE 10 MG TABLET PO SCH (11:49)
[2018-09-05] MEDS: POTASSIUM CHLORIDE 10 MEQ TABLET.ER. PO SCH (11:49)
[2018-09-05] MEDS: oxyCODONE/APAP 7.5/325 1 TAB TABLET PO PRN ×2 (12:58→18:04)
[2018-09-05 15:00] VITALS: BP 112/62
[2018-09-05] MEDS ORDERED: DEXTROSE 50% 25 GM / 50ML DISP.SYRIN. IV PRN (17:00)
[2018-09-05] MEDS: INSULIN LISPRO 300 UNITS/3 ML INSULN.PEN. SQ SCH (17:14)
[2018-09-05] MEDS: NICOTINE 7MG PATCH. TD SCH (17:15)
[2018-09-05 19:00] VITALS: BP 132/79
[2018-09-05] MEDS: AMITRIPTYLINE HCL 10 MG TABLET. PO SCH (21:38)
[2018-09-05] MEDS: METOPROLOL TART IMMED RELEASE 50 MG TABLET. PO SCH (21:38)
[2018-09-05 23:02] VITALS: BP 113/67
[2018-09-06] MEDS: oxyCODONE/APAP 7.5/325 1 TAB TABLET PO PRN ×2 (01:20→14:50)
[2018-09-06] MEDS: POTASSIUM CL 40MEQ D5-0.45NACL 1,000 ML IV SCH ×2 (01:34→20:59)
[2018-09-06 03:30] VITALS: BP 140/72
[2018-09-06 05:41] LABS: BASO % 0 % (0-3); EOS # 0.1 x10^3/uL (0.0-0.7); EOS % 2 % (0-3); HEMATOCRIT 32.8 % (36.0-47.0); HEMOGLOBIN 10.4 g/dL (12.0-15.5); LYMPH # 2.2 x10^3/uL (1.0-4.8); LYMPH % 42 % (24-48); MEAN CORPUSCULAR HEMOGLOBIN 23 pg (25-35); MEAN CORPUSCULAR HGB CONC 32 g/dL (31-37); MEAN CORPUSCULAR VOLUME 72 fL (79-100); MONO # 0.5 x10^3/uL (0.0-1.1); MONO % 9 % (0-9); NEUT # 2.5 x10^3uL (1.8-7.7); NEUT % 47 % (31-73); PLATELET COUNT 313 x10^3/uL (140-400); RED BLOOD COUNT 4.58 x10^6/uL (3.50-5.40); RED CELL DISTRIBUTION WIDTH 17.4 % (11.5-14.5); WHITE BLOOD COUNT 5.4 x10^3/uL (4.0-11.0)
[2018-09-06 06:13] LABS: CALCIUM 8.5 mg/dL (8.5-10.1); GFR 68.4; POTASSIUM 3.3 mmol/L (3.5-5.1)
[2018-09-06 07:00] VITALS: BP 145/74
[2018-09-06] MEDS: PANTOPRAZOLE 40 MG TABLET.DR. PO SCH (07:26)
[2018-09-06] MEDS: INSULIN LISPRO 300 UNITS/3 ML INSULN.PEN. SQ SCH ×3 (07:29→16:56)
--- NOTE | 2018-09-06 07:59 | PDOC ---
PROGRESS NOTES Chief Complaint Chief Complaint A/P: Unable to walk - muscle cramps, likely 2/2 electrolyte disturbance. will have PT /OT evaluate Hypokalemia - K 2.8, will place on tele and give IV Kcl Hypomagnesemia - 1.1, will replace 8 grams and check in AM HTN - avoid diuretics with her history HLD - diet control DM - will place on sliding scale Smoker - counseled on cessation, will offer nicotine patch FEN - ADA diet PPX - SCDs FULL CODE Inpatient for inability to walk likely 2/2 electrolyte derangement, likely 2 midnights to correct this. If not corrected soon, will ask nephrology for assistance. History of Present Illness History of Present Illness 62 year old female w/ PMHx HTN, HLD, DM, smoker who presents with diffuse muscle cramps. This is been going on for the past several days. Last time it happened she was noted to be hypokalemic. She is on potassium supplementation. She is getting no relief with her Robaxin. Discomfort is moderate in intensity. And diffuse. Found with potassium of 2.8 and magnesium of 1.1 and unable to walk with severe cramping of bilateral legs, neck, back. Feeling like she is coughing quite a bit more. Potassium burning again during infusion. Mag 2.1 today, K 3.3 Plan: Nebs, CXR Continue IV potassium. Likely won't be able to d/c until tomorrow, particularly since her respiratory status has worsened Vitals Vitals Vital Signs Date Time Temp Pulse Resp B/P (MAP) Pulse Ox O2 Delivery O2 Flow Rate FiO2 09/06/18 03:30 97.7 65 20 140/72 (94) 93 Room Air 97.7 09/05/18 11:00 Physical Exam General: Alert, Oriented X3, Cooperative, No acute distress Heart: Regular rate Lungs: Wheezing, Other (Bilateral rhonchi) Abdomen: Normal bowel sounds, Soft, No tenderness, No hepatosplenomegaly, No masses Extremities: No clubbing, No cyanosis, No edema, Normal pulses Skin: No rashes, No breakdown, No significant lesion Labs LABS Laboratory Tests Test 09/05/18 11:47 09/05/18 16:51 09/05/18 20:06 09/06/18 05:00 Glucose (Fingerstick) 176 mg/dL (70-99) 174 mg/dL (70-99) 163 mg/dL (70-99) White Blood Count 5.4 x10^3/uL (4.0-11.0) Red Blood Count 4.58 x10^6/uL (3.50-5.40) Hemoglobin 10.4 g/dL (12.0-15.5) Hematocrit 32.8 % (36.0-47.0) Mean Corpuscular Volume 72 fL (79-100) Mean Corpuscular Hemoglobin 23 pg (25-35) Mean Corpuscular Hemoglobin Concent 32 g/dL (31-37) Red Cell Distribution Width 17.4 % (11.5-14.5) Platelet Count 313 x10^3/uL (140-400) Neutrophils (%) (Auto) 47 % (31-73) Lymphocytes (%) (Auto) 42 % (24-48) Monocytes (%) (Auto) 9 % (0-9) Eosinophils (%) (Auto) 2 % (0-3) Basophils (%) (Auto) 0 % (0-3) Neutrophils # (Auto) 2.5 x10^3uL (1.8-7.7) Lymphocytes # (Auto) 2.2 x10^3/uL (1.0-4.8) Monocytes # (Auto) 0.5 x10^3/uL (0.0-1.1) Eosinophils # (Auto) 0.1 x10^3/uL (0.0-0.7) Basophils # (Auto) 0.0 x10^3/uL (0.0-0.2) Sodium Level 141 mmol/L (136-145) Potassium Level 3.3 mmol/L (3.5-5.1) Chloride Level 101 mmol/L (98-107) Carbon Dioxide Level 30 mmol/L (21-32) Anion Gap 10 (6-14) Blood Urea Nitrogen 15 mg/dL (7-20) Creatinine 1.0 mg/dL (0.6-1.0) Estimated GFR (Cockcroft-Gault) 68.4 Glucose Level 178 mg/dL (70-99) Calcium Level 8.5 mg/dL (8.5-10.1) Magnesium Level 2.1 mg/dL (1.8-2.4) Test 09/06/18 07:27 Glucose (Fingerstick) 134 mg/dL (70-99) Assessment and Plan Assessmemt and Plan Problems Medical Problems: (1) Hypokalemia Status: Acute (2) Hypomagnesemia Status: Acute Comment Review of Relevant I have reviewed the following items jewel (where applicable) has been applied. Labs Laboratory Tests Test 09/05/18 07:45 09/05/18 11:47 09/05/18 16:51 09/05/18 20:06 Sodium Level 140 mmol/L (136-145) Potassium Level 2.8 mmol/L (3.5-5.1) Chloride Level 97 mmol/L (98-107) Carbon Dioxide Level 30 mmol/L (21-32) Anion Gap 13 (6-14) Blood Urea Nitrogen 14 mg/dL (7-20) Creatinine 1.1 mg/dL (0.6-1.0) Estimated GFR (Cockcroft-Gault) 61.3 Glucose Level 200 mg/dL (70-99) Calcium Level 9.2 mg/dL (8.5-10.1) Magnesium Level 1.1 mg/dL (1.8-2.4) Glucose (Fingerstick) 176 mg/dL (70-99) 174 mg/dL (70-99) 163 mg/dL (70-99) Test 09/06/18 05:00 09/06/18 07:27 White Blood Count 5.4 x10^3/uL (4.0-11.0) Red Blood Count 4.58 x10^6/uL (3.50-5.40) Hemoglobin 10.4 g/dL (12.0-15.5) Hematocrit 32.8 % (36.0-47.0) Mean Corpuscular Volume 72 fL (79-100) Mean Corpuscular Hemoglobin 23 pg (25-35) Mean Corpuscular Hemoglobin Concent 32 g/dL (31-37) Red Cell Distribution Width 17.4 % (11.5-14.5) Platelet Count 313 x10^3/uL (140-400) Neutrophils (%) (Auto) 47 % (31-73) Lymphocytes (%) (Auto) 42 % (24-48) Monocytes (%) (Auto) 9 % (0-9) Eosinophils (%) (Auto) 2 % (0-3) Basophils (%) (Auto) 0 % (0-3) Neutrophils # (Auto) 2.5 x10^3uL (1.8-7.7) Lymphocytes # (Auto) 2.2 x10^3/uL (1.0-4.8) Monocytes # (Auto) 0.5 x10^3/uL (0.0-1.1) Eosinophils # (Auto) 0.1 x10^3/uL (0.0-0.7) Basophils # (Auto) 0.0 x10^3/uL (0.0-0.2) Sodium Level 141 mmol/L (136-145) Potassium Level 3.3 mmol/L (3.5-5.1) Chloride Level 101 mmol/L (98-107) Carbon Dioxide Level 30 mmol/L (21-32) Anion Gap 10 (6-14) Blood Urea Nitrogen 15 mg/dL (7-20) Creatinine 1.0 mg/dL (0.6-1.0) Estimated GFR (Cockcroft-Gault) 68.4 Glucose Level 178 mg/dL (70-99) Calcium Level 8.5 mg/dL (8.5-10.1) Magnesium Level 2.1 mg/dL (1.8-2.4) Glucose (Fingerstick) 134 mg/dL (70-99) Laboratory Tests Test 09/05/18 11:47 09/05/18 16:51 09/05/18 20:06 09/06/18 05:00 Glucose (Fingerstick) 176 mg/dL (70-99) 174 mg/dL (70-99) 163 mg/dL (70-99) White Blood Count 5.4 x10^3/uL (4.0-11.0) Red Blood Count 4.58 x10^6/uL (3.50-5.40) Hemoglobin 10.4 g/dL (12.0-15.5) Hematocrit 32.8 % (36.0-47.0) Mean Corpuscular Volume 72 fL (79-100) Mean Corpuscular Hemoglobin 23 pg (25-35) Mean Corpuscular Hemoglobin Concent 32 g/dL (31-37) Red Cell Distribution Width 17.4 % (11.5-14.5) Platelet Count 313 x10^3/uL (140-400) Neutrophils (%) (Auto) 47 % (31-73) Lymphocytes (%) (Auto) 42 % (24-48) Monocytes (%) (Auto) 9 % (0-9) Eosinophils (%) (Auto) 2 % (0-3) Basophils (%) (Auto) 0 % (0-3) Neutrophils # (Auto) 2.5 x10^3uL (1.8-7.7) Lymphocytes # (Auto) 2.2 x10^3/uL (1.0-4.8) Monocytes # (Auto) 0.5 x10^3/uL (0.0-1.1) Eosinophils # (Auto) 0.1 x10^3/uL (0.0-0.7) Basophils # (Auto) 0.0 x10^3/uL (0.0-0.2) Sodium Level 141 mmol/L (136-145) Potassium Level 3.3 mmol/L (3.5-5.1) Chloride Level 101 mmol/L (98-107) Carbon Dioxide Level 30 mmol/L (21-32) Anion Gap 10 (6-14) Blood Urea Nitrogen 15 mg/dL (7-20) Creatinine 1.0 mg/dL (0.6-1.0) Estimated GFR (Cockcroft-Gault) 68.4 Glucose Level 178 mg/dL (70-99) Calcium Level 8.5 mg/dL (8.5-10.1) Magnesium Level 2.1 mg/dL (1.8-2.4) Test 09/06/18 07:27 Glucose (Fingerstick) 134 mg/dL (70-99) Medications Current Medications Magnesium Sulfate/ Dextrose 100 ml @ 25 mls/hr 1X ONCE IV Last administered on 09/05/18at 08:29; Start 09/05/18 at 08:30; Stop 09/05/18 at 12:29; Status DC Potassium Chloride (Klor-Con) 40 meq 1X ONCE PO Last administered on 09/05/18at 08:36; Start 09/05/18 at 08:30; Stop 09/05/18 at 08:31; Status DC Ondansetron HCl (Zofran) 4 mg PRN Q8HRS PRN IV NAUSEA/VOMITING; Start 09/05/18 at 09:00; Stop 09/06/18 at 08:59 Acetaminophen (Tylenol) 650 mg PRN Q4HRS PRN PO FEVER Last administered on 11:10; Start 09/05/18 at 09:00; Stop 09/06/18 at 08:59 Diazepam (Valium) 2 mg 1X ONCE PO Last administered on 09/05/18 09:25; Start 09/05/18 at 09:00; Stop 09/05/18 at 09:01; Status DC Potassium Chloride/Dextrose/ Sod Cl 1,000 ml @ 75 mls/hr [id number] IV Last administered on 09/06/18 01:34; Start 09/05/18 at 11:15 Tizanidine HCl (Zanaflex) 4 mg PRN Q8HRS PRN PO MUSCLE SPASMS Last administered on 09/05/18 11:48; Start 09/05/18 at 11:15 Magnesium Sulfate/ Dextrose 100 ml @ 25 mls/hr 1X ONCE IV Last administered on 09/05/18 12:21; Start 09/05/18 at 11:15; Stop 09/05/18 at 15:14; Status DC Amitriptyline HCl (Elavil) 10 mg QHS PO Last administered on 09/05/18 21:38; Start 09/05/18 at 21:00 Amlodipine Besylate (Norvasc) 10 mg DAILY PO Last administered on 09/05/18 11: 49; Start 09/05/18 at 12:00 Metoprolol Tartrate (Lopressor) 50 mg BID PO Last administered on 09/05/18 21: 38; Start 09/05/18 at 21:00 Oxycodone/ Acetaminophen (Percocet 7.5/ 325) 1 tab PRN Q4HRS PRN PO SEVERE PAIN Last administered on 09/06/18 01:20; Start 09/05/18 at 11:15 Potassium Chloride (Klor-Con) 10 meq DAILY PO Last administered on 09/05/18 11: 49; Start 09/05/18 at 12:00 Naproxen (Naprosyn) 250 mg BID PO Last administered on 09/05/18 21:37; Start at 11:30 Pantoprazole Sodium (Protonix) 40 mg DAILYAC PO Last administered on 09/06/18 07:26; Start 09/05/18 at 11:30 Nicotine (Nicoderm Cq 14mg) 1 patch PRN DAILY PRN TD NICOTINE WITHDRAWL Last administered on 09/05/18at 11:47; Start 09/05/18 at 11:30; Stop 09/05/18 at 17:05; Status DC Insulin Human Lispro (HumaLOG) 0-7 UNITS TIDWMEALS SQ Last administered on 17:14; Start 09/05/18 at 17:00 Dextrose (Dextrose 50%-Water Syringe) 12.5 gm PRN Q15MIN PRN IV SEE COMMENTS; Start 09/05/18 at 17:00 Nicotine (Nicoderm Cq 7mg) 1 patch DAILY TD Last administered on 09/05/18at 17:15 ; Start 09/05/18 at 17:30 Active Scripts Active [Nicotine 14MG] 1 PATCH Patch 1 Patch TD PRN DAILY PRN Reported Klor-Con M10 (Potassium Chloride) 10 Meq Tab.er.prt 1 Tab PO DAILY Metoprolol Tartrate 50 Mg Tablet 1 Tab PO BID Amitriptyline Hcl 10 Mg Tablet 1 Tab PO QHS Naprosyn (Naproxen) 500 Mg Tablet 250 Mg PO BID Omeprazole 40 Mg Capsule.dr 1 Cap PO DAILY Robaxin (Methocarbamol) 500 Mg Tablet 1,000 Mg PO QID Hydrochlorothiazide Tablet (Hydrochlorothiazide) 25 Mg Tablet 25 Mg PO DAILY Percocet 7.5-325 Mg Tablet (Oxycodone/Acetaminophen) 1 Each Tablet 1 Tab PO PRN Q4HRS PRN Amlodipine Besylate 10 Mg Tablet 10 Mg PO DAILY Vitals/I & O Vital Sign - Last 24 Hours 09/05/18 09/05/18 09/05/18 09/05/18 08:30 09:00 09:48 10:15 Temp 97.3 97.3 Pulse 82 80 82 Resp 19 20 20 B/P (MAP) 159/83 (108) 162/81 (108) 149/91 (110) Pulse Ox 97 95 97 O2 Delivery Room Air Room Air Room Air Room Air O2 Flow Rate 09/05/18 09/05/18 09/05/18 09/05/18 11:00 11:49 12:58 13:58 Temp 98.3 98.3 Pulse 91 82 Resp 20 18 18 B/P (MAP) 144/82 (102) 149/91 Pulse Ox 95 O2 Delivery Room Air Room Air O2 Flow Rate 09/05/18 09/05/18 09/05/18 09/05/18 15:00 18:04 19:00 20:00 Temp 97.8 97.3 97.8 97.3 Pulse 76 74 Resp 20 18 20 B/P (MAP) 112/62 (79) 132/79 (96) Pulse Ox 93 96 O2 Delivery Room Air Room Air Room Air Room Air 09/05/18 09/05/18 09/06/18 09/06/18 21:38 23:02 01:20 02:20 Temp 97.8 97.8 Pulse 74 86 Resp 20 B/P (MAP) 132/79 113/67 (82) Pulse Ox 91 91 91 O2 Delivery Room Air Room Air Room Air 09/06/18 03:30 Temp 97.7 97.7 Pulse 65 Resp 20 B/P (MAP) 140/72 (94) Pulse Ox 93 O2 Delivery Room Air Intake and Output 09/05/18 09/05/18 09/06/18 15:00 23:00 07:00 Intake Total 220 ml 340 ml Output Total 300 ml Balance 220 ml 340 ml -300 ml TAE CANO MD Sep 06, 2018 07:59
[2018-09-06] MEDS ORDERED: POTASSIUM CHLORIDE 20 MEQ TABLET.ER. PO ONE (08:00)
--- NOTE | 2018-09-06 08:00 | NUR ---
Patient home medications sent to pharmacy per protocol as family member did not pear picker. Patient verb. understanding.
[2018-09-06] MEDS: POTASSIUM CHLORIDE 10 MEQ TABLET.ER. PO SCH (08:08)
--- NOTE | 2018-09-06 08:10 | NUR ---
!0 MEQ Potassium oral held as giving 40 MEQ po and IV potassium, see orders and emar.
[2018-09-06] MEDS: POTASSIUM CHLORIDE 10MEQ 100 ML IV SCH ×2 (08:12→09:46)
[2018-09-06] MEDS: NAPROXEN 250 MG TABLET PO SCH ×2 (08:15→20:59)
[2018-09-06] MEDS: METOPROLOL TART IMMED RELEASE 50 MG TABLET. PO SCH ×2 (08:15→20:59)
[2018-09-06] MEDS: amLODIPine BESYLATE 10 MG TABLET PO SCH (08:15)
[2018-09-06] MEDS: NICOTINE 7MG PATCH. TD SCH (08:16)
--- NOTE | 2018-09-06 09:12 | NUR ---
Patient having burning at IV site with additional potassium, IV rates decreased and elevation right arm and ice to site. Continue to monitor. See IV infusion record.
[2018-09-06 09:34] LABS: ANISOCYTOSIS PRESENT; MICROCYTOSIS PRESENT; PLT ESTIMATE ADEQUATE (ADEQUATE)
[2018-09-06 09:35] LABS: HYPOCHROMIA PRESENT
[2018-09-06 11:00] VITALS: BP 131/71
[2018-09-06] MEDS: IPRATRPIUM/ALBUTEROL 0.5/2.5MG 3 ML NEBU. NEB SCH ×3 (12:00→19:28)
--- NOTE | 2018-09-06 14:03 | RAD ---
PA and lateral chest. HISTORY: Cough, wheezing PA and lateral views were taken of the chest. Lungs are clear. Heart is normal in size. There is no pleural effusion. IMPRESSION: 1. No acute chest disease. Electronically signed by: Amado Acosta MD (09/06/2018 2:00 PM) [facility]
[2018-09-06 15:00] VITALS: BP 134/83
[2018-09-06] MEDS: BUDESONIDE 0.5 MG/2 ML NEBU. NEB SCH ×2 (15:05→19:28)
[2018-09-06] MEDS ORDERED: ONDANSETRON PF 4 MG/2 ML VIAL. IV PRN (17:30)
[2018-09-06 19:00] VITALS: BP 134/66
[2018-09-06] MEDS: AMITRIPTYLINE HCL 10 MG TABLET. PO SCH (21:00)
[2018-09-06] MEDS: tiZANidine 4 MG TABLET. PO PRN (21:03)
[2018-09-06 23:01] VITALS: BP 118/64
[2018-09-07 03:02] VITALS: BP 125/73
[2018-09-07 07:00] VITALS: BP 140/70
[2018-09-07] MEDS: IPRATRPIUM/ALBUTEROL 0.5/2.5MG 3 ML NEBU. NEB SCH ×2 (07:59→12:00)
[2018-09-07] MEDS: BUDESONIDE 0.5 MG/2 ML NEBU. NEB SCH (07:59)
[2018-09-07] MEDS: POTASSIUM CL 40MEQ D5-0.45NACL 1,000 ML IV SCH (09:53)
[2018-09-07] MEDS: amLODIPine BESYLATE 10 MG TABLET PO SCH (09:54)
[2018-09-07] MEDS: METOPROLOL TART IMMED RELEASE 50 MG TABLET. PO SCH (09:54)
[2018-09-07] MEDS: NAPROXEN 250 MG TABLET PO SCH (09:55)
[2018-09-07] MEDS: PANTOPRAZOLE 40 MG TABLET.DR. PO SCH (09:56)
[2018-09-07] MEDS: oxyCODONE/APAP 7.5/325 1 TAB TABLET PO PRN ×2 (09:56→15:07)
[2018-09-07] MEDS: POTASSIUM CHLORIDE 10 MEQ TABLET.ER. PO SCH (09:57)
[2018-09-07] MEDS: NICOTINE 7MG PATCH. TD SCH (09:58)
[2018-09-07] MEDS: INSULIN LISPRO 300 UNITS/3 ML INSULN.PEN. SQ SCH ×2 (10:07→11:25)
[2018-09-07 10:22] LABS: BASO % 1 % (0-3); EOS % 2 % (0-3); HEMATOCRIT 35.5 % (36.0-47.0); HEMOGLOBIN 11.1 g/dL (12.0-15.5); LYMPH # 1.9 x10^3/uL (1.0-4.8); LYMPH % 34 % (24-48); MEAN CORPUSCULAR HEMOGLOBIN 23 pg (25-35); MEAN CORPUSCULAR HGB CONC 31 g/dL (31-37); MEAN CORPUSCULAR VOLUME 72 fL (79-100); MONO # 0.5 x10^3/uL (0.0-1.1); MONO % 8 % (0-9); NEUT # 3.1 x10^3uL (1.8-7.7); NEUT % 55 % (31-73); PLATELET COUNT 327 x10^3/uL (140-400); RED BLOOD COUNT 4.93 x10^6/uL (3.50-5.40); RED CELL DISTRIBUTION WIDTH 17.2 % (11.5-14.5); WHITE BLOOD COUNT 5.6 x10^3/uL (4.0-11.0)
[2018-09-07 10:23] LABS: EOS # 0.1 x10^3/uL (0.0-0.7)
[2018-09-07 10:51] LABS: CREATININE 0.8 mg/dL (0.6-1.0); GFR 88.5; MAGNESIUM 1.3 mg/dL (1.8-2.4)
[2018-09-07 10:57] LABS: HYPOCHROMIA PRESENT; MICROCYTOSIS PRESENT; PLT ESTIMATE ADEQUATE (ADEQUATE)
[2018-09-07 11:00] VITALS: BP 163/74
[2018-09-07] MEDS ORDERED: MAGNESIUM SULFATE 2GM 50 ML IV ONE (12:00)
[2018-09-07] MEDS ORDERED: IPRA3AMP29 NEB (12:50)
[2018-09-07] MEDS ORDERED: MAGN400T3 PO (12:50)
[2018-09-07] MEDS ORDERED: POTA20TA82 PO (12:50)
[2018-09-07] MEDS ORDERED: OXYC1TAB19 PO (12:50)
[2018-09-07] MEDS ORDERED: TIZA4TAB PO (12:50)
[2018-09-07] MEDS ORDERED: BUDE0.5A NEB (12:50)
--- NOTE | 2018-09-07 12:54 | PDOC3 ---
Discharge Summary Visit Information Date of Admission: Sep 05, 2018 Date of Discharge: Sep 07, 2018 Admitting Diagnosis Comment: Hypokalemia Hypomagnesemia Chronic pain Hypertension controlled COPD exacerbation Smoker Final Diagnosis Problems Medical Problems: (1) Hypokalemia Status: Acute (2) Hypomagnesemia Status: Acute Brief Hospital Course Allergies Allergies Coded Allergies Type Severity Reaction Last Updated Verified lisinopril Allergy Intermediate 07/07/15 Yes codeine Adverse Reaction Intermediate Itching 07/13/15 Yes Vital Signs Vital Signs Date Time Temp Pulse Resp B/P (MAP) Pulse Ox O2 Delivery O2 Flow Rate FiO2 09/07/18 11:00 98.6 59 18 163/74 (103) 92 Room Air 98.6 Lab Results Laboratory Tests Test 09/05/18 16:51 09/05/18 20:06 09/06/18 05:00 09/06/18 07:27 Glucose (Fingerstick) 174 mg/dL (70-99) 163 mg/dL (70-99) 134 mg/dL (70-99) White Blood Count 5.4 x10^3/uL (4.0-11.0) Red Blood Count 4.58 x10^6/uL (3.50-5.40) Hemoglobin 10.4 g/dL (12.0-15.5) Hematocrit 32.8 % (36.0-47.0) Mean Corpuscular Volume 72 fL (79-100) Mean Corpuscular Hemoglobin 23 pg (25-35) Mean Corpuscular Hemoglobin Concent 32 g/dL (31-37) Red Cell Distribution Width 17.4 % (11.5-14.5) Platelet Count 313 x10^3/uL (140-400) Neutrophils (%) (Auto) 47 % (31-73) Lymphocytes (%) (Auto) 42 % (24-48) Monocytes (%) (Auto) 9 % (0-9) Eosinophils (%) (Auto) 2 % (0-3) Basophils (%) (Auto) 0 % (0-3) Neutrophils # (Auto) 2.5 x10^3uL (1.8-7.7) Lymphocytes # (Auto) 2.2 x10^3/uL (1.0-4.8) Monocytes # (Auto) 0.5 x10^3/uL (0.0-1.1) Eosinophils # (Auto) 0.1 x10^3/uL (0.0-0.7) Basophils # (Auto) 0.0 x10^3/uL (0.0-0.2) Platelet Estimate Adequate (ADEQUATE) Hypochromasia Present Anisocytosis Present Microcytosis Present Sodium Level 141 mmol/L (136-145) Potassium Level 3.3 mmol/L (3.5-5.1) Chloride Level 101 mmol/L (98-107) Carbon Dioxide Level 30 mmol/L (21-32) Anion Gap 10 (6-14) Blood Urea Nitrogen 15 mg/dL (7-20) Creatinine 1.0 mg/dL (0.6-1.0) Estimated GFR (Cockcroft-Gault) 68.4 Glucose Level 178 mg/dL (70-99) Calcium Level 8.5 mg/dL (8.5-10.1) Magnesium Level 2.1 mg/dL (1.8-2.4) Test 09/06/18 11:08 09/06/18 15:58 09/06/18 20:18 09/07/18 07:40 Glucose (Fingerstick) 191 mg/dL (70-99) 121 mg/dL (70-99) 202 mg/dL (70-99) 180 mg/dL (70-99) Test 09/07/18 09:55 09/07/18 10:47 White Blood Count 5.6 x10^3/uL (4.0-11.0) Red Blood Count 4.93 x10^6/uL (3.50-5.40) Hemoglobin 11.1 g/dL (12.0-15.5) Hematocrit 35.5 % (36.0-47.0) Mean Corpuscular Volume 72 fL (79-100) Mean Corpuscular Hemoglobin 23 pg (25-35) Mean Corpuscular Hemoglobin Concent 31 g/dL (31-37) Red Cell Distribution Width 17.2 % (11.5-14.5) Platelet Count 327 x10^3/uL (140-400) Neutrophils (%) (Auto) 55 % (31-73) Lymphocytes (%) (Auto) 34 % (24-48) Monocytes (%) (Auto) 8 % (0-9) Eosinophils (%) (Auto) 2 % (0-3) Basophils (%) (Auto) 1 % (0-3) Neutrophils # (Auto) 3.1 x10^3uL (1.8-7.7) Lymphocytes # (Auto) 1.9 x10^3/uL (1.0-4.8) Monocytes # (Auto) 0.5 x10^3/uL (0.0-1.1) Eosinophils # (Auto) 0.1 x10^3/uL (0.0-0.7) Basophils # (Auto) 0.0 x10^3/uL (0.0-0.2) Platelet Estimate Adequate (ADEQUATE) Hypochromasia Present Microcytosis Present Sodium Level 145 mmol/L (136-145) Potassium Level 4.0 mmol/L (3.5-5.1) Chloride Level 103 mmol/L (98-107) Carbon Dioxide Level 31 mmol/L (21-32) Anion Gap 11 (6-14) Blood Urea Nitrogen 10 mg/dL (7-20) Creatinine 0.8 mg/dL (0.6-1.0) Estimated GFR (Cockcroft-Gault) 88.5 Glucose Level 134 mg/dL (70-99) Calcium Level 9.0 mg/dL (8.5-10.1) Magnesium Level 1.3 mg/dL (1.8-2.4) Glucose (Fingerstick) 121 mg/dL (70-99) Laboratory Tests Test 09/06/18 15:58 09/06/18 20:18 09/07/18 07:40 09/07/18 09:55 Glucose (Fingerstick) 121 mg/dL (70-99) 202 mg/dL (70-99) 180 mg/dL (70-99) White Blood Count 5.6 x10^3/uL (4.0-11.0) Red Blood Count 4.93 x10^6/uL (3.50-5.40) Hemoglobin 11.1 g/dL (12.0-15.5) Hematocrit 35.5 % (36.0-47.0) Mean Corpuscular Volume 72 fL (79-100) Mean Corpuscular Hemoglobin 23 pg (25-35) Mean Corpuscular Hemoglobin Concent 31 g/dL (31-37) Red Cell Distribution Width 17.2 % (11.5-14.5) Platelet Count 327 x10^3/uL (140-400) Neutrophils (%) (Auto) 55 % (31-73) Lymphocytes (%) (Auto) 34 % (24-48) Monocytes (%) (Auto) 8 % (0-9) Eosinophils (%) (Auto) 2 % (0-3) Basophils (%) (Auto) 1 % (0-3) Neutrophils # (Auto) 3.1 x10^3uL (1.8-7.7) Lymphocytes # (Auto) 1.9 x10^3/uL (1.0-4.8) Monocytes # (Auto) 0.5 x10^3/uL (0.0-1.1) Eosinophils # (Auto) 0.1 x10^3/uL (0.0-0.7) Basophils # (Auto) 0.0 x10^3/uL (0.0-0.2) Platelet Estimate Adequate (ADEQUATE) Hypochromasia Present Microcytosis Present Sodium Level 145 mmol/L (136-145) Potassium Level 4.0 mmol/L (3.5-5.1) Chloride Level 103 mmol/L (98-107) Carbon Dioxide Level 31 mmol/L (21-32) Anion Gap 11 (6-14) Blood Urea Nitrogen 10 mg/dL (7-20) Creatinine 0.8 mg/dL (0.6-1.0) Estimated GFR (Cockcroft-Gault) 88.5 Glucose Level 134 mg/dL (70-99) Calcium Level 9.0 mg/dL (8.5-10.1) Magnesium Level 1.3 mg/dL (1.8-2.4) Test 09/07/18 10:47 Glucose (Fingerstick) 121 mg/dL (70-99) Brief Hospital Course Ms. Rain is a 62 old AA female, history of intermittent hypokalemia and hypomagnesemia. Only on KCl 10 mEq at home daily, no diuretic, claims compliance - she gets symptomatic with muscle cramps. Potassium was 2+ on admission, needing IV cont KCl - corrected after 2 days. Mag always low corrected after IV and by mouth supplementation. I increased her KCl to 40 by mouth twice a day for 7 days and instructed to repeat potassiums 7 days time. Also needed some mag supplement. Mag 1.3 on discharge with replacement of 2 g IV prior to discharge She has a PCP that can follow-up with elytes She requests refills of home hydrocodone any inhalers. She does smoke. Counseled on smoking DC time 31 minutes greater than 50% DC education counseling Rx etc. Patient seen and examined, discussed with RN Consults performed none Procedures performed none Discharge Information Condition at Discharge: Improved Disposition/Orders: D/C to Home Scheduled Amitriptyline Hcl (Amitriptyline Hcl) 10 Mg Tablet, 1 TAB PO QHS for depression , #30 Ref 1 (Reported) Entered as Reported by: FRAN DELA CRUZ on 09/05/18 0950 Last Action: Continued on 09/05/18 111 by TAE CANO MD Amlodipine Besylate (Amlodipine Besylate) 10 Mg Tablet, 10 MG PO DAILY, ( Reported) Entered as Reported by: Kary Randall on 07/08/15 1325 Last Action: Continued on 09/05/18 1117 by TAE CANO MD Budesonide (Budesonide) 0.5 Mg/2 Ml Ampul.neb, 0.5 MG NEB RTBID for bronchitis MDD 1, #30 Prescribed by: MAYDA SAM on 09/07/18 1250 Hydrochlorothiazide (Hydrochlorothiazide Tablet ) 25 Mg Tablet, 25 MG PO DAILY, (Reported) Entered as Reported by: TRACI PALACIO on 05/08/17 0512 Last Action: HELD on 09/06/18 1044 by TAE CANO MD Ipratropium/Albuterol Sulfate (Duoneb 0.5-3(2.5) Mg/3 Ml) 3 Ml Ampul.neb, 3 ML NEB RTQID for acute bronchitis MDD 1, #30 Prescribed by: MAYDA SAM on 09/07/18 1250 Magnesium Oxide (Magnesium Oxide) 400 Mg Tablet, 1 TAB PO BID for low mag for 7 Days, #14 Ref 5 Prescribed by: MAYDA SAM on 09/07/18 1250 Methocarbamol (Robaxin) 500 Mg Tablet, 1,000 MG PO QID for muscle spasms, ( Reported) Entered as Reported by: FRAN DELA CRUZ on 3/9/19 0946 Last Action: HELD on 09/06/18 1044 by TAE CANO MD Metoprolol Tartrate (Metoprolol Tartrate) 50 Mg Tablet, 1 TAB PO BID for htn, # 60 Ref 5 (Reported) Entered as Reported by: FRAN DELA CRUZ on 09/05/18949 Last Action: Continued on 09/05/181116 by TAE CANO MD Naproxen (Naprosyn) 500 Mg Tablet, 250 MG PO BID for pain, (Reported) Entered as Reported by: FRAN DELA CRUZ on 09/05/18945 Last Action: Converted on 09/05/181116 by TAE CANO MD Omeprazole (Omeprazole) 40 Mg Capsule.dr, 1 CAP PO DAILY for gerd, #30 Ref 3 ( Reported) Entered as Reported by: FRAN DELA CRUZ on 09/05/18945 Last Action: Converted on 09/05/181116 by TAE CANO MD Potassium Chloride (Klor-Con M10) 10 Meq Tab.er.prt, 1 TAB PO DAILY for supplement, #30 Ref 5 (Reported) Entered as Reported by: FRAN DELA CRUZ on 09/05/18949 Last Action: Continued on 09/05/181116 by TAE CANO MD Potassium Chloride (Potassium Chloride) 20 Meq Tablet.er, 40 MEQ PO DAILY for low K for 7 Days, #14 Prescribed by: MAYDA SAM on 09/07/18 1250 Scheduled PRN Oxycodone/Apap 7.5-325 (Percocet 7.5-325 Mg Tablet ) 1 Each Tablet, 1 TAB PO PRN Q4HRS PRN for PAIN MDD 1, #15 Ref 0 Prescribed by: MAYDA SAM on 09/07/18 1250 Tizanidine Hcl (Tizanidine Hcl) 4 Mg Tablet, 4 MG PO PRN Q8HRS PRN for MUSCLE SPASMS MDD 1, #30 Prescribed by: MAYDA SAM on 09/07/18 1250 [Nicotine 14MG] 1 PATCH PATCH, 1 PATCH TD PRN DAILY PRN for SMOKING CESSATION, # 30 Prescribed by: DAVID JONES MD on 05/15/17 1129 Last Action: Converted on 09/05/18 1117 by TAE CANO MD Discontinued Medications Cyclobenzaprine Hcl (Cyclobenzaprine Hcl) 10 Mg Tablet, 10 MG PO TID PRN for MUSCLE SPASMS, (Reported) Entered as Reported by: Kary Randall on 07/08/15 1325 Last Action: Discontinued on 09/05/18951 by FRAN DELA CRUZ Gemfibrozil (Gemfibrozil) 600 Mg Tablet, 600 MG PO BID, (Reported) Entered as Reported by: Kary Randall on 07/08/15 1325 Last Action: Discontinued on 09/05/18951 by FRAN DELA CRUZ Metoprolol Tartrate (Metoprolol Tartrate) 50 Mg Tablet, 1 TAB PO BID, #180 Ref 3 (Reported) Entered as Reported by: Kary Randall on 07/08/151324 Last Action: Discontinued on 09/05/18951 by FRAN DELA CRUZ Potassium Chloride (Klor-Con M20) 20 Meq Tab.er.prt, 1 TAB PO DAILY, (Reported) Entered as Reported by: TRACI PALACIO on 05/08/17 0512 Last Action: Discontinued on 09/05/18951 by MAYDA ANDREWS MD Sep 07, 2018 12:54
--- NOTE | 2018-09-07 15:08 | NUR ---
Discharge Note: CANDY CROUCH [address] [place] [address] Discharge instructions and discharge home medications reviewed with Patient and a copy given. All questions have been answered and understanding verbalized. The following instructions and handouts were given: Diet, Mag & potassium supp. Discontinued lines and drains: peripheral line. Patient discharged to Home or Self Care with Self via Ambulated
== END 2018-09-07 15:09 | disposition home or self-care (01) | DRG 641 ==
LOC: ER 07:03 → 5 NORTH 08:43
PROVIDERS: ADMIT Internal Medicine; ATTEND Internal Medicine
DX: E87.6 Hypokalemia (principal); J44.1 Chronic obstructive pulmonary disease with (acute) exacerbation; E83.42 Hypomagnesemia; E11.9 Type 2 diabetes mellitus without complications; E78.00 Pure hypercholesterolemia, unspecified; E78.5 Hyperlipidemia, unspecified; F17.210 Nicotine dependence, cigarettes, uncomplicated; I10 Essential (primary) hypertension; Z79.51 Long term (current) use of inhaled steroids; Z79.899 Other long term (current) drug therapy; Z90.710 Acquired absence of both cervix and uterus; Z90.49 Acquired absence of other specified parts of digestive tract; Z88.5 Allergy status to narcotic agent; Z88.8 Allergy status to other drugs, medicaments and biological substances; Z71.6 Tobacco abuse counseling; Z79.84 Long term (current) use of oral hypoglycemic drugs
CPT/HCPCS: 36415; 71046; 80048; 82962; 83735; 85025; 94640; 96365; J1815; J2405; J3475; J3480; J7042; J7620; J7626; 99285-25

== ENCOUNTER 2018-10-12 19:39 | Inpatient (IN) | payer OTHER ==
[~2018-10-12] VITALS: Ht 167.6 cm; Wt 89.1 kg
[~2018-10-12 19:39] MED LIST changes: +AMIT10TA PO; +BUDE0.5A NEB; +IPRA3AMP29 NEB; +METH-37 PO; +NAPR-683 PO; +OMEP40CA5 PO; +POTA10TA12 PO; +POTA20TA82 PO; +TIZA4TAB PO
[2018-10-12 21:15] LABS: BILIRUBIN,URINE NEGATIVE (NEG); CLARITY,URINE CLEAR; COLOR,URINE YELLOW; NITRITE,URINE NEGATIVE (NEG); PROTEIN,URINE NEGATIVE (NEG-TRACE)
[2018-10-12 21:16] LABS: BASO % 0 % (0-3); EOS # 0.2 x10^3/uL (0.0-0.7); EOS % 2 % (0-3); HEMOGLOBIN 11.9 g/dL (12.0-15.5); LYMPH # 2.4 x10^3/uL (1.0-4.8); LYMPH % 27 % (24-48); MEAN CORPUSCULAR HEMOGLOBIN 23 pg (25-35); MEAN CORPUSCULAR HGB CONC 32 g/dL (31-37); MEAN CORPUSCULAR VOLUME 72 fL (79-100); MONO # 0.6 x10^3/uL (0.0-1.1); MONO % 7 % (0-9); NEUT # 5.7 x10^3uL (1.8-7.7); NEUT % 64 % (31-73); PLATELET COUNT 299 x10^3/uL (140-400); RED BLOOD COUNT 5.17 x10^6/uL (3.50-5.40); RED CELL DISTRIBUTION WIDTH 16.7 % (11.5-14.5)
[2018-10-12 21:22] LABS: BACTERIA,URINE FEW /HPF (0-FEW); RBC,URINE 0 /HPF (0-2); SQUAMOUS EPITHELIAL CELL,UR MOD /LPF
[2018-10-12 21:23] LABS: CALCIUM 8.6 mg/dL (8.5-10.1); GFR 68.4; POTASSIUM 3.2 mmol/L (3.5-5.1)
[2018-10-12 21:29] LABS: ALBUMIN 3.6 g/dL (3.4-5.0); ALBUMIN/GLOBULIN RATIO 0.8 (1.0-1.7); TOTAL BILIRUBIN 0.6 mg/dL (0.2-1.0); TOTAL PROTEIN 8.1 g/dL (6.4-8.2)
[2018-10-12 21:32] LABS: HYPOCHROMIA SLIGHT; MICROCYTOSIS MOD; PLT ESTIMATE ADEQUATE (ADEQUATE)
[2018-10-12] MEDS ORDERED: fentaNYL PF VIAL 100 MCG/2 ML VIAL IV ONE (22:00)
[2018-10-12] MEDS: LIDOCAINE (700MG/PATCH) PATCH. TD SCH (23:05)
[2018-10-12] MEDS ORDERED: POTASSIUM CHLORIDE 20 MEQ TABLET.ER. PO ONE ×2 (23:09→23:30)
[2018-10-12] MEDS ORDERED: DEXAMETHASONE SOD PHOS 20 MG/5 ML VIAL. ONE (23:09)
[2018-10-12] MEDS ORDERED: DEXAMETHASONE SOD PHOS 20 MG/5 ML VIAL. IV ONE (23:30)
[2018-10-13] VITALS (8 sets, daily range): BP systolic 114–168; BP diastolic 65–89
[2018-10-13] MEDS ORDERED: MAGNESIUM OXIDE 400 MG TABLET ONE (00:03)
[2018-10-13] MEDS ORDERED: MAGNESIUM SULFATE 2GM 50 ML IV ONE (00:03)
--- NOTE | 2018-10-13 01:10 | NUR ---
Pt admitted this am pt continues with complaints of bilateral shoulder pain. Pt with lidoderm patches noted on shoulders. Called traffic controller cable Physician and received ok orders for oral pain medications at this time. Pt given lortab for pain and states she has tolerated medication before. Pt instructed to get up with assistance. Pt verbalize understanding. Pt currently receiving IV magnesium at this time. Pt had taken medications on chart with 1x orders however charted during downtime. Currently on paperchart.
[2018-10-13] MEDS: HYDROcodone/APAP 5/325MG 1 TAB TABLET PO PRN ×2 (02:19→09:01)
[2018-10-13 04:23] LABS: CREATININE 1.3 mg/dL (0.6-1.0); GFR 50.6; MAGNESIUM 1.8 mg/dL (1.8-2.4); POTASSIUM 3.6 mmol/L (3.5-5.1)
[2018-10-13 04:25] LABS: BASO % 0 % (0-3); EOS % 0 % (0-3); HEMATOCRIT 37.4 % (36.0-47.0); HEMOGLOBIN 11.6 g/dL (12.0-15.5); LYMPH # 1.1 x10^3/uL (1.0-4.8); LYMPH % 13 % (24-48); MEAN CORPUSCULAR HEMOGLOBIN 22 pg (25-35); MEAN CORPUSCULAR HGB CONC 31 g/dL (31-37); MEAN CORPUSCULAR VOLUME 72 fL (79-100); MONO # 0.2 x10^3/uL (0.0-1.1); MONO % 3 % (0-9); NEUT # 7.3 x10^3uL (1.8-7.7); NEUT % 84 % (31-73); PLATELET COUNT 320 x10^3/uL (140-400); WHITE BLOOD COUNT 8.7 x10^3/uL (4.0-11.0)
--- NOTE | 2018-10-13 06:35 | EKG ---
[facility] [address] [place] [address] Test Date: 2018-10-12 Test Time: 21:18:14 Pat Name: CANDY CROUCH Department: Room: 646 1 Gender: F [employer] Delivery Driver: : [id number] Requested By: JOHN HAMPTON Order Number: [id number] Reading MD: Dre Thorpe Measurements Intervals [place] Rate: 82 P: 40 [place]: 142 QRS: -14 QRSD: 84 T: 51 QT: 382 QTc: 449 Interpretive Statements SINUS RHYTHM LEFTWARD AXIS QRS(T) CONTOUR ABNORMALITY CONSISTENT WITH ANTEROSEPTAL INFARCT PROBABLY OLD ABNORMAL ECG Electronically Signed On 10-19-2018 13:02:54 CDT by Dre Thorpe
--- NOTE | 2018-10-13 08:14 | RAD ---
CHEST PA LATERAL History: MUSCLE SPASMS, EXTREMITY SWELLING. HX OF HBP Comparison: 09/06/2018 two-view chest x-ray exam. Findings: The cardiomediastinal silhouette is normal. Pulmonary vasculature is normal. The lungs are clear. No pleural effusion or pneumothorax is seen. There is no acute bone abnormality. Right upper quadrant surgical clips are present. IMPRESSION: No acute cardiopulmonary process. Electronically signed by: Tristen Cruz MD (10/13/2018 8:11 AM) [id number]
[2018-10-13] MEDS: LIDOCAINE (700MG/PATCH) PATCH. TD SCH (09:03)
--- NOTE | 2018-10-13 10:52 | PDOC1 ---
History and Physical Date of Admission Date of Admission DATE: 10/13/18 TIME: 10:52 Identification/Chief Complaint Chief Complaint SEEN IN ER complaints of bilateral shoulder pain. Pt with lidoderm patches noted on shoulders. NOW HAVING RECURRENT DISCOMFORT, States she drinks heavily mostly on weekends PAST HX COCAINE ABUSE Past Medical History Past Medical History Past Medical History Past Medical History: Diabetes-Type II, High Cholesterol, Hypertension Past Surgical History: Cholecystectomy, Hysterectomy, Other Additional Past Surgical Histo: Left knee, partial thyroid Alcohol Use: Occasionally Drug Use: Cocaine family hx COPD Cardiovascular: HTN Pulmonary: No pertinent hx GI: No pertinent hx Heme/Onc: No pertinent hx Hepatobiliary: No pertinent hx Psych: No pertinent hx Rheumatologic: No pertinent hx Infectious disease: No pertinent hx Renal/: No pertinent hx Endocrine: Diabetes Dermatology: No pertinent hx Past Surgical History Past Surgical History: Hysterectomy, Other Family History Family History Past Medical History Cardiovascular: HTN Endocrine: Diabetes Past Surgical History Past Surgical History: Hysterectomy, Other Family History Family History: Family History Unknown Social History <1 pack per day ALCOHOL: social Drugs: None Family History: High Cholestrol, Family History Unknown Social History Smoke: <1 pack per day ALCOHOL: social Drugs: None Current Medications Current Medications Current Medications Fentanyl Citrate (Fentanyl 2ml Vial) 50 mcg 1X ONCE IV ; Start 10/12/18 at 22: 00; Stop 10/13/18 at 00:37; Status DC Lidocaine (Lidoderm) 2 patch DAILY TD Last administered on 10/13/18at 09:03; Start 10/12/18 at 22:00 Potassium Chloride (Klor-Con) 20 meq STK-MED ONCE PO ; Start 10/12/18 at 23:09; Stop 10/13/18 at 00:52; Status DC Dexamethasone Sodium Phosphate (Decadron) 20 mg STK-MED ONCE .ROUTE ; Start at 23:09; Stop 10/13/18 at 00:52; Status DC Lorazepam (Ativan) 2 mg STK-MED ONCE .ROUTE ; Start 10/12/18 at 23:10; Stop at 00:52; Status DC Magnesium Sulfate 50 ml @ As Directed STK-MED ONCE IV ; Start 10/13/18 at 00:03 ; Stop 10/13/18 at 00:52; Status DC Magnesium Oxide (Magnesium Oxide) 400 mg STK-MED ONCE .ROUTE ; Start 10/13/18 at 00:03; Stop 10/13/18 at 00:52; Status DC Acetaminophen/ Hydrocodone Bitart (Lortab 5/325) 1 tab PRN Q6HRS PRN PO MODERATE PAIN Last administered on 10/13/18at 09:01; Start 10/13/18 at 01:45 Potassium Chloride (Klor-Con) 40 meq 1X ONCE PO ; Start 10/12/18 at 23:30; Stop 10/13/18 at 02:33; Status DC Lorazepam (Ativan) 1 mg 1X ONCE IV ; Start 10/12/18 at 23:30; Stop 10/13/18 at 02:33; Status DC Dexamethasone Sodium Phosphate (Decadron) 10 mg 1X ONCE IV ; Start 10/12/18 at 23:30; Stop 10/13/18 at 02:33; Status DC Active Scripts Active Magnesium Oxide 400 Mg Tablet 1 Tab PO BID 7 Days Potassium Chloride 20 Meq Tablet.er 40 Meq PO DAILY 7 Days Tizanidine Hcl 4 Mg Tablet 4 Mg PO PRN Q8HRS PRN MDD 1 Duoneb 0.5-3(2.5) Mg/3 Ml (Albuterol/Ipratropium) 3 Ml Ampul.neb 3 Ml NEB RTQID MDD 1 Budesonide 0.5 Mg/2 Ml Ampul.neb 0.5 Mg NEB RTBID MDD 1 Percocet 7.5-325 Mg Tablet (Oxycodone/Acetaminophen) 1 Each Tablet 1 Tab PO PRN Q4HRS PRN MDD 1 [Nicotine 14MG] 1 PATCH Patch 1 Patch TD PRN DAILY PRN Reported Metoprolol Tartrate 50 Mg Tablet 1 Tab PO BID Amitriptyline Hcl 10 Mg Tablet 1 Tab PO QHS Naprosyn (Naproxen) 500 Mg Tablet 250 Mg PO BID PRN Omeprazole 40 Mg Capsule. 1 Cap PO DAILY Amlodipine Besylate 10 Mg Tablet 10 Mg PO DAILY Allergies Allergies: Coded Allergies: lisinopril (Verified Allergy, Intermediate, 07/07/15) codeine (Verified Adverse Reaction, Intermediate, Itching, 07/13/15) ROS Review of System 14 pt ros otherwise neg General: No: Chills, Night Sweats, Fatigue, Malaise, Appetite, Other PSYCHOLOGICAL ROS: No: Anxiety, Behavioral Disorder, Concentration difficultie , Decreased libido, Depression, Disorientation, Hallucinations, Hostility, Irritablity, Memory difficulties, Mood Swings, Obsessive thoughts, Physical abuse, Sexual abuse, Sleep disturbances, Suicidal ideation, Other Eyes: No Blurry vision, No Decreased vision, No Double vision, No Dry eyes, No Excessive tearing, No Eye Pain, No Itchy Eyes, No Loss of vision, No Photophobia , No Scotomata, No Uses contacts, No Uses glasses, No Other HEENT: No: Heacaches, Visual Changes, Hearing change, Nasal congestion, Nasal discharge, Oral lesions, Sinus pain, Sore Throat, Epistaxis, Sneezing, Snoring, Tinnitus, Vertigo, Vocal changes, Other ALLERGY AND IMMUNOLOGY: No: Hives, Insect Bite Sensitivity, Itchy/Watery Eyes, Nasal Congestion, Post Nasal Drip, Seasonal Allergies, Other Hematological and Lymphatic: No: Bleeding Problems, Blood Clots, Blood Transfusions, Brusing, Night Sweats, Pallor, Swollen Lymph Nodes, Other ENDOCRINE: No: Breast Changes, Galactorrhea, Hair Pattern Changes, Hot Flashes , Malaise/lethargy, Mood Swings, Palpitations, Polydipsia/polyuria, Skin Changes , Temperature Intolerance, Unexpected Weight Changes, Other Respiratory: No: Cough, Hemoptysis, Orthopnea, Pleuritic Pain, Shortness of breath, SOB with excertion, Sputum Changes, Stridor, Tachypnea, Wheezing, Other Genitourinary: No Dysuria, No Frequency, No Incontinence, No Hematuria, No Retention, No Discharge, No Urgency, No Pain, No Flank Pain, No Other, No , No , No , No , No , No , No Musculoskeletal: Yes Gait Disturbance, Yes Joint Stiffness, Yes Muscle Pain, Yes Muscular Weakness, Yes Other (neck discomfort, muscular); No Joint Pain, No Joint Swelling, No Pain In:, No Swelling In: Neurological: Yes Gait Disturbance; No Behavorial Changes, No Bowel/Bladder ControlChng, No Confusion, No Dizziness, No Headaches, No Impaired Coord/balance, No Memory Loss, No Numbness/ Tingling, No Seizures, No Speech Problems, No Tremors, No Visual Changes, No Weakness, No Other Skin: Yes Dry Skin Physical Exam General: Alert, Oriented X3, Cooperative, No acute distress, mild distress HEENT: PERRLA Lungs: Clear to auscultation, Normal air movement Breasts: Not examined Abdomen: Normal bowel sounds, Soft, No tenderness, No hepatosplenomegaly Rectal Exam: not examined Extremities: No clubbing, No cyanosis Skin: No rashes, No breakdown, No significant lesion Neuro: Normal speech, Strength at 5/5 X4 ext, Cranial nerves 3-12 NL Psych/Mental Status: Mental status NL, Mood NL Vitals Vitals Vital Signs Date Time Temp Pulse Resp B/P (MAP) Pulse Ox O2 Delivery O2 Flow Rate FiO2 10/13/18 10:02 Room Air 10/13/18 10:01 92 10/13/18 07:00 98.1 88 18 128/67 (87) 98.1 Labs Labs Laboratory Tests Test 10/12/18 20:40 10/12/18 21:00 10/13/18 03:15 10/13/18 07:02 Urine Collection Type Unknown Urine Color Yellow Urine Clarity Clear Urine pH 7.0 Urine Specific [place] 1.015 Urine Protein Negative mg/dL (NEG-TRACE) Urine Glucose (UA) Negative mg/dL (NEG) Urine Ketones (Stick) Negative mg/dL (NEG) Urine Blood Negative (NEG) Urine Nitrite Negative (NEG) Urine Bilirubin Negative (NEG) Urine Urobilinogen Dipstick 1.0 mg/dL (0.2 mg/dL) Urine Leukocyte Esterase Negative (NEG) Urine RBC 0 /HPF (0-2) Urine WBC 1-4 /HPF (0-4) Urine Squamous Epithelial Cells Mod /LPF Urine Bacteria Few /HPF (0-FEW) Urine Mucus Slight /LPF White Blood Count 9.0 x10^3/uL (4.0-11.0) 8.7 x10^3/uL (4.0-11.0) Red Blood Count 5.17 x10^6/uL (3.50-5.40) 5.20 x10^6/uL (3.50-5.40) Hemoglobin 11.9 g/dL (12.0-15.5) 11.6 g/dL (12.0-15.5) Hematocrit 37.0 % (36.0-47.0) 37.4 % (36.0-47.0) Mean Corpuscular Volume 72 fL (79-100) 72 fL (79-100) Mean Corpuscular Hemoglobin 23 pg (25-35) 22 pg (25-35) Mean Corpuscular Hemoglobin Concent 32 g/dL (31-37) 31 g/dL (31-37) Red Cell Distribution Width 16.7 % (11.5-14.5) 17.0 % (11.5-14.5) Platelet Count 299 x10^3/uL (140-400) 320 x10^3/uL (140-400) Neutrophils (%) (Auto) 64 % (31-73) 84 % (31-73) Lymphocytes (%) (Auto) 27 % (24-48) 13 % (24-48) Monocytes (%) (Auto) 7 % (0-9) 3 % (0-9) Eosinophils (%) (Auto) 2 % (0-3) 0 % (0-3) Basophils (%) (Auto) 0 % (0-3) 0 % (0-3) Neutrophils # (Auto) 5.7 x10^3uL (1.8-7.7) 7.3 x10^3uL (1.8-7.7) Lymphocytes # (Auto) 2.4 x10^3/uL (1.0-4.8) 1.1 x10^3/uL (1.0-4.8) Monocytes # (Auto) 0.6 x10^3/uL (0.0-1.1) 0.2 x10^3/uL (0.0-1.1) Eosinophils # (Auto) 0.2 x10^3/uL (0.0-0.7) 0.0 x10^3/uL (0.0-0.7) Basophils # (Auto) 0.0 x10^3/uL (0.0-0.2) 0.0 x10^3/uL (0.0-0.2) Platelet Estimate Adequate (ADEQUATE) Hypochromasia Slight Microcytosis Mod Sodium Level 142 mmol/L (136-145) 140 mmol/L (136-145) Potassium Level 3.2 mmol/L (3.5-5.1) 3.6 mmol/L (3.5-5.1) Chloride Level 100 mmol/L (98-107) 100 mmol/L (98-107) Carbon Dioxide Level 29 mmol/L (21-32) 24 mmol/L (21-32) Anion Gap 13 (6-14) 16 (6-14) Blood Urea Nitrogen 11 mg/dL (7-20) 9 mg/dL (7-20) Creatinine 1.0 mg/dL (0.6-1.0) 1.3 mg/dL (0.6-1.0) Estimated GFR (Cockcroft-Gault) 68.4 50.6 BUN/Creatinine Ratio 11 (6-20) Glucose Level 139 mg/dL (70-99) 271 mg/dL (70-99) Calcium Level 8.6 mg/dL (8.5-10.1) 9.0 mg/dL (8.5-10.1) Magnesium Level 1.0 mg/dL (1.8-2.4) 1.8 mg/dL (1.8-2.4) Total Bilirubin 0.6 mg/dL (0.2-1.0) Aspartate Amino Transf (AST/SGOT) 17 U/L (15-37) Alanine Aminotransferase (ALT/SGPT) 19 U/L (14-59) Alkaline Phosphatase 140 U/L (46-116) Creatine Kinase 162 U/L (26-192) Creatine Kinase MB (Mass) 0.6 ng/mL (0.0-3.6) Creatine Kinase MB Relative Index 0.4 % (0-4) Troponin I Quantitative < 0.017 ng/mL (0.000-0.055) Total Protein 8.1 g/dL (6.4-8.2) Albumin 3.6 g/dL (3.4-5.0) Albumin/Globulin Ratio 0.8 (1.0-1.7) Glucose (Fingerstick) 231 mg/dL (70-99) Laboratory Tests Test 10/12/18 20:40 10/12/18 21:00 10/13/18 03:15 10/13/18 07:02 Urine Collection Type Unknown Urine Color Yellow Urine Clarity Clear Urine pH 7.0 Urine Specific [place] 1.015 Urine Protein Negative mg/dL (NEG-TRACE) Urine Glucose (UA) Negative mg/dL (NEG) Urine Ketones (Stick) Negative mg/dL (NEG) Urine Blood Negative (NEG) Urine Nitrite Negative (NEG) Urine Bilirubin Negative (NEG) Urine Urobilinogen Dipstick 1.0 mg/dL (0.2 mg/dL) Urine Leukocyte Esterase Negative (NEG) Urine RBC 0 /HPF (0-2) Urine WBC 1-4 /HPF (0-4) Urine Squamous Epithelial Cells Mod /LPF Urine Bacteria Few /HPF (0-FEW) Urine Mucus Slight /LPF White Blood Count 9.0 x10^3/uL (4.0-11.0) 8.7 x10^3/uL (4.0-11.0) Red Blood Count 5.17 x10^6/uL (3.50-5.40) 5.20 x10^6/uL (3.50-5.40) Hemoglobin 11.9 g/dL (12.0-15.5) 11.6 g/dL (12.0-15.5) Hematocrit 37.0 % (36.0-47.0) 37.4 % (36.0-47.0) Mean Corpuscular Volume 72 fL (79-100) 72 fL (79-100) Mean Corpuscular Hemoglobin 23 pg (25-35) 22 pg (25-35) Mean Corpuscular Hemoglobin Concent 32 g/dL (31-37) 31 g/dL (31-37) Red Cell Distribution Width 16.7 % (11.5-14.5) 17.0 % (11.5-14.5) Platelet Count 299 x10^3/uL (140-400) 320 x10^3/uL (140-400) Neutrophils (%) (Auto) 64 % (31-73) 84 % (31-73) Lymphocytes (%) (Auto) 27 % (24-48) 13 % (24-48) Monocytes (%) (Auto) 7 % (0-9) 3 % (0-9) Eosinophils (%) (Auto) 2 % (0-3) 0 % (0-3) Basophils (%) (Auto) 0 % (0-3) 0 % (0-3) Neutrophils # (Auto) 5.7 x10^3uL (1.8-7.7) 7.3 x10^3uL (1.8-7.7) Lymphocytes # (Auto) 2.4 x10^3/uL (1.0-4.8) 1.1 x10^3/uL (1.0-4.8) Monocytes # (Auto) 0.6 x10^3/uL (0.0-1.1) 0.2 x10^3/uL (0.0-1.1) Eosinophils # (Auto) 0.2 x10^3/uL (0.0-0.7) 0.0 x10^3/uL (0.0-0.7) Basophils # (Auto) 0.0 x10^3/uL (0.0-0.2) 0.0 x10^3/uL (0.0-0.2) Platelet Estimate Adequate (ADEQUATE) Hypochromasia Slight Microcytosis Mod Sodium Level 142 mmol/L (136-145) 140 mmol/L (136-145) Potassium Level 3.2 mmol/L (3.5-5.1) 3.6 mmol/L (3.5-5.1) Chloride Level 100 mmol/L (98-107) 100 mmol/L (98-107) Carbon Dioxide Level 29 mmol/L (21-32) 24 mmol/L (21-32) Anion Gap 13 (6-14) 16 (6-14) Blood Urea Nitrogen 11 mg/dL (7-20) 9 mg/dL (7-20) Creatinine 1.0 mg/dL (0.6-1.0) 1.3 mg/dL (0.6-1.0) Estimated GFR (Cockcroft-Gault) 68.4 50.6 BUN/Creatinine Ratio 11 (6-20) Glucose Level 139 mg/dL (70-99) 271 mg/dL (70-99) Calcium Level 8.6 mg/dL (8.5-10.1) 9.0 mg/dL (8.5-10.1) Magnesium Level 1.0 mg/dL (1.8-2.4) 1.8 mg/dL (1.8-2.4) Total Bilirubin 0.6 mg/dL (0.2-1.0) Aspartate Amino Transf (AST/SGOT) 17 U/L (15-37) Alanine Aminotransferase (ALT/SGPT) 19 U/L (14-59) Alkaline Phosphatase 140 U/L (46-116) Creatine Kinase 162 U/L (26-192) Creatine Kinase MB (Mass) 0.6 ng/mL (0.0-3.6) Creatine Kinase MB Relative Index 0.4 % (0-4) Troponin I Quantitative < 0.017 ng/mL (0.000-0.055) Total Protein 8.1 g/dL (6.4-8.2) Albumin 3.6 g/dL (3.4-5.0) Albumin/Globulin Ratio 0.8 (1.0-1.7) Glucose (Fingerstick) 231 mg/dL (70-99) Images Images INDICATION: Chest and abdomen pain COMPARISON: None. TECHNIQUE: Axial CT images obtained through the chest, abdomen and pelvis with intravenous contrast. Three-dimensional images processed of chest per angiogram protocol.. One or more of the following individualized dose reduction techniques were utilized for this examination: 1. Automated exposure control; 2. Adjustment of the mA and/or kV according to patient size; 3. Use of iterative reconstruction technique. FINDINGS: Chest: Dependent airspace opacities. No evidence of pneumothorax. Mild hernia. Left lobe of thyroid nodules suspected. Calcified lymph nodes in the mediastinum, could be sequela of old granulomatous disease. Motion obscures large portions of ascending thoracic aorta but no definite aneurysm in visualized portions. Degenerative changes of the spine. Pleural thickening or pleural effusions near right upper lung measuring up to about 11 mm in thickness. No central pulmonary embolus but limited peripherally secondary to motion. Some suspected thickening of esophageal wall. Abdomen and pelvis: Moderate atherosclerotic disease of the abdominal aorta. Low-attenuation of liver. No definite peripancreatic edema. There are some calcified granulomas of the spleen. No left-sided hydronephrosis. No right-sided hydronephrosis. Urinary bladder is partially distended. Colonic diverticulosis. No definite periappendiceal inflammation. Small fat-containing umbilical hernia. No dilated loops of bowel to suggest obstruction. Degenerative changes spine. This includes multiple disc protrusions with central canal stenosis. IMPRESSION: No embolus in main, right main or left main pulmonary artery but the peripheral vessels are obscured by patient motion. Mild dependent opacities within the lungs. Most likely causes atelectasis unless there is high clinical concern for infiltrate. No evidence of bowel obstruction or appendicitis. Low attenuation of the liver. Nonspecific but frequently secondary to fatty infiltration. There is some wall thickening of the esophagus with a hiatal hernia. If there are symptoms within the region causes such as esophagitis not excluded. Suspected thyroid nodule. If more complete characterization is desired nonemergent ultrasound could better evaluate. Small right-sided pleural effusion versus pleural thickening near right lung apex. Electronically signed by: Kenyon Woodard MD (05/08/2017 3:16 AM) [facility] DICTATED and SIGNED BY: KENYON WOODARD MD DATE: 05/08/17 0252 CC: HA SMITH MD; NO PCP ~ STATUS: ADM IN ORD. PHYSICIAN: JOHN HAMPTON APRN REASON: upper back pain/spasms PROCEDURE: CHEST PA & LATERAL CHEST PA LATERAL History: MUSCLE SPASMS, EXTREMITY SWELLING. HX OF HBP Comparison: 09/06/2018 two-view chest x-ray exam. Findings: The cardiomediastinal silhouette is normal. Pulmonary vasculature is normal. The lungs are clear. No pleural effusion or pneumothorax is seen. There is no acute bone abnormality. Right upper quadrant surgical clips are present. IMPRESSION: No acute cardiopulmonary process. Electronically signed by: Tristen Francois MD (10/13/2018 8:11 AM) [id number] DICTATED and SIGNED BY: TRISTEN FRANCOIS MD DATE: 10/13/18 0811 VTE Prophylaxis Ordered VTE Prophylaxis Devices: Yes VTE Pharmacological Prophylaxi: Yes Assessment/Plan Assessment/Plan impression hypokalemia Hypomagnesemia, severe, REPLACED Chronic pain Hypertension COPD Smoker alcohol abuse hx diabetes Moderate atherosclerotic disease of the abdominal aorta. Low-attenuation of liver. Colonic diverticulosis. Small fat-containing umbilical hernia. Degenerative changes spine. This includes multiple disc protrusions with central canal stenosis. GERD CT 2017, wall thickening of the esophagus with a hiatal hernia. If there are symptoms within the region causes such as esophagitis not excluded. PAST COCAINE USE 2017 plan iv mg tele bp control accuchecks tele dvt prophylaxis UDS 77 min pt exam, chart review, > 50% of time spent with exam, chart review, pt care coordination JULIO CESAR HARRISON MD Oct 13, 2018 10:52
--- NOTE | 2018-10-13 13:00 | NUR ---
Performed gentle massage to relax patient's neck and shoulder muscles, for pain relief.
--- NOTE | 2018-10-13 14:37 | NUR ---
SW following pt for anticipated dc needs. Chart reviewed. No discharge recommendation noted at this time. Will continue to assess needs.
[2018-10-13] MEDS ORDERED: NAPROXEN 250 MG TABLET PO PRN (14:45)
[2018-10-13] MEDS ORDERED: ENOXAPARIN 40 MG/0.4 ML SYRINGE. SQ SCH (15:00)
[2018-10-13] MEDS ORDERED: tiZANidine 4 MG TABLET. PO PRN (15:00)
[2018-10-13] MEDS: oxyCODONE/APAP 7.5/325 1 TAB TABLET PO PRN ×2 (15:21→20:44)
[2018-10-13] MEDS: IPRATRPIUM/ALBUTEROL 0.5/2.5MG 3 ML NEBU. NEB SCH ×2 (15:49→19:12)
[2018-10-13] MEDS ORDERED: amLODIPine BESYLATE 5 MG TABLET PO ONE (16:15)
--- NOTE | 2018-10-13 16:30 | NUR ---
Spoke with Dr. Stern d/t elevated BP 168/89; HR 92 - ordered Norvasc Now (see order history) + recheck BP and HR in 2 hours.
[2018-10-13] MEDS: BUDESONIDE 0.5 MG/2 ML NEBU. NEB SCH (19:12)
[2018-10-13] MEDS: METOPROLOL TART IMMED RELEASE 50 MG TABLET. PO SCH (20:45)
[2018-10-13] MEDS ORDERED: AMITRIPTYLINE HCL 10 MG TABLET. PO SCH (21:00)
[2018-10-13] MEDS ORDERED: PATCH REMOVAL. MC SCH (21:00)
[2018-10-14 03:22] VITALS: BP 122/74
[2018-10-14] MEDS: IPRATRPIUM/ALBUTEROL 0.5/2.5MG 3 ML NEBU. NEB SCH ×2 (06:02→11:25)
[2018-10-14] MEDS: BUDESONIDE 0.5 MG/2 ML NEBU. NEB SCH (06:02)
[2018-10-14 07:00] VITALS: BP 150/82
[2018-10-14] MEDS ORDERED: PANTOPRAZOLE 40 MG TABLET.DR. PO SCH (07:30)
[2018-10-14] MEDS ORDERED: POTASSIUM CHLORIDE 20 MEQ TABLET.ER. PO SCH (08:00)
[2018-10-14] MEDS: METOPROLOL TART IMMED RELEASE 50 MG TABLET. PO SCH (08:44)
[2018-10-14] MEDS: oxyCODONE/APAP 7.5/325 1 TAB TABLET PO PRN (08:44)
[2018-10-14] MEDS: LIDOCAINE (700MG/PATCH) PATCH. TD SCH (08:45)
[2018-10-14] MEDS ORDERED: MAGNESIUM OXIDE 400 MG TABLET PO SCH (09:00)
[2018-10-14] MEDS ORDERED: amLODIPine BESYLATE 10 MG TABLET PO SCH (09:00)
[2018-10-14] MEDS ORDERED: NICOTINE 14MG PATCH. TD PRN (09:00)
[2018-10-14 09:11] LABS: BARBITURATES NEG (NEG); BENZODIAZEPINES NEG (NEG); CANNABINOIDS NEG (NEG); METHADONE NEG (NEG); PHENCYCLIDINE NEG (NEG)
[2018-10-14 09:13] LABS: AMPHETAMINE/METHAMPHETAMINE NEG (NEG)
[2018-10-14 09:19] LABS: COCAINE POS (NEG); OPIATES POS (NEG)
--- NOTE | 2018-10-14 10:22 | PDOC ---
PROGRESS NOTES History of Present Illness History of Present Illness VTE Prophylaxis Ordered VTE Prophylaxis Devices: Yes VTE Pharmacological Prophylaxi: Yes Assessment/Plan Assessment/Plan impression hypokalemia Hypomagnesemia, severe, REPLACED Chronic pain Hypertension COPD Smoker alcohol abuse hx diabetes UNCONTROLLED Moderate atherosclerotic disease of the abdominal aorta. Low-attenuation of liver. Colonic diverticulosis. Small fat-containing umbilical hernia. Degenerative changes spine. This includes multiple disc protrusions with central canal stenosis. GERD CT 2017, wall thickening of the esophagus with a hiatal hernia. If there are symptoms within the region causes such as esophagitis not excluded. PAST COCAINE USE 2017 and current plan SEE PCP TOMORROW offered treatment center, refused AMA iv mg tele bp control accuchecks tele dvt prophylaxis UDS PO 33 min pt exam, D/C PLANNING chart review, > 50% of time spent with exam, chart review, pt care coordination Vitals Vitals Vital Signs Date Time Temp Pulse Resp B/P (MAP) Pulse Ox O2 Delivery O2 Flow Rate FiO2 10/14/18 08:44 68 150/82 10/14/18 07:00 98.3 18 95 Room Air 98.3 Physical Exam General: Alert, Oriented X3, Cooperative, No acute distress, mild distress Lungs: Wheezing, Other Abdomen: Normal bowel sounds, Soft, No tenderness, No hepatosplenomegaly Extremities: No clubbing, No cyanosis Skin: No rashes, No breakdown, No significant lesion Labs LABS Laboratory Tests Test 10/13/18 11:00 10/13/18 16:56 10/13/18 20:26 10/14/18 07:22 Glucose (Fingerstick) 249 mg/dL (70-99) 249 mg/dL (70-99) 217 mg/dL (70-99) 172 mg/dL (70-99) Test 10/14/18 08:30 Urine Opiates Screen Pos (NEG) Urine Methadone Screen Neg (NEG) Urine Barbiturates Neg (NEG) Urine Phencyclidine Screen Neg (NEG) Urine Amphetamine/Methamphetamine Neg (NEG) Urine Benzodiazepines Screen Neg (NEG) Urine Cocaine Screen Pos (NEG) Urine Cannabinoids Screen Neg (NEG) Urine Ethyl Alcohol Neg (NEG) Comment Review of Relevant I have reviewed the following items jewel (where applicable) has been applied. Labs Laboratory Tests Test 10/12/18 20:40 10/12/18 21:00 10/13/18 03:15 10/13/18 07:02 Urine Collection Type Unknown Urine Color Yellow Urine Clarity Clear Urine pH 7.0 Urine Specific [place] 1.015 Urine Protein Negative mg/dL (NEG-TRACE) Urine Glucose (UA) Negative mg/dL (NEG) Urine Ketones (Stick) Negative mg/dL (NEG) Urine Blood Negative (NEG) Urine Nitrite Negative (NEG) Urine Bilirubin Negative (NEG) Urine Urobilinogen Dipstick 1.0 mg/dL (0.2 mg/dL) Urine Leukocyte Esterase Negative (NEG) Urine RBC 0 /HPF (0-2) Urine WBC 1-4 /HPF (0-4) Urine Squamous Epithelial Cells Mod /LPF Urine Bacteria Few /HPF (0-FEW) Urine Mucus Slight /LPF White Blood Count 9.0 x10^3/uL (4.0-11.0) 8.7 x10^3/uL (4.0-11.0) Red Blood Count 5.17 x10^6/uL (3.50-5.40) 5.20 x10^6/uL (3.50-5.40) Hemoglobin 11.9 g/dL (12.0-15.5) 11.6 g/dL (12.0-15.5) Hematocrit 37.0 % (36.0-47.0) 37.4 % (36.0-47.0) Mean Corpuscular Volume 72 fL (79-100) 72 fL (79-100) Mean Corpuscular Hemoglobin 23 pg (25-35) 22 pg (25-35) Mean Corpuscular Hemoglobin Concent 32 g/dL (31-37) 31 g/dL (31-37) Red Cell Distribution Width 16.7 % (11.5-14.5) 17.0 % (11.5-14.5) Platelet Count 299 x10^3/uL (140-400) 320 x10^3/uL (140-400) Neutrophils (%) (Auto) 64 % (31-73) 84 % (31-73) Lymphocytes (%) (Auto) 27 % (24-48) 13 % (24-48) Monocytes (%) (Auto) 7 % (0-9) 3 % (0-9) Eosinophils (%) (Auto) 2 % (0-3) 0 % (0-3) Basophils (%) (Auto) 0 % (0-3) 0 % (0-3) Neutrophils # (Auto) 5.7 x10^3uL (1.8-7.7) 7.3 x10^3uL (1.8-7.7) Lymphocytes # (Auto) 2.4 x10^3/uL (1.0-4.8) 1.1 x10^3/uL (1.0-4.8) Monocytes # (Auto) 0.6 x10^3/uL (0.0-1.1) 0.2 x10^3/uL (0.0-1.1) Eosinophils # (Auto) 0.2 x10^3/uL (0.0-0.7) 0.0 x10^3/uL (0.0-0.7) Basophils # (Auto) 0.0 x10^3/uL (0.0-0.2) 0.0 x10^3/uL (0.0-0.2) Platelet Estimate Adequate (ADEQUATE) Hypochromasia Slight Microcytosis Mod Sodium Level 142 mmol/L (136-145) 140 mmol/L (136-145) Potassium Level 3.2 mmol/L (3.5-5.1) 3.6 mmol/L (3.5-5.1) Chloride Level 100 mmol/L (98-107) 100 mmol/L (98-107) Carbon Dioxide Level 29 mmol/L (21-32) 24 mmol/L (21-32) Anion Gap 13 (6-14) 16 (6-14) Blood Urea Nitrogen 11 mg/dL (7-20) 9 mg/dL (7-20) Creatinine 1.0 mg/dL (0.6-1.0) 1.3 mg/dL (0.6-1.0) Estimated GFR (Cockcroft-Gault) 68.4 50.6 BUN/Creatinine Ratio 11 (6-20) Glucose Level 139 mg/dL (70-99) 271 mg/dL (70-99) Calcium Level 8.6 mg/dL (8.5-10.1) 9.0 mg/dL (8.5-10.1) Magnesium Level 1.0 mg/dL (1.8-2.4) 1.8 mg/dL (1.8-2.4) Total Bilirubin 0.6 mg/dL (0.2-1.0) Aspartate Amino Transf (AST/SGOT) 17 U/L (15-37) Alanine Aminotransferase (ALT/SGPT) 19 U/L (14-59) Alkaline Phosphatase 140 U/L (46-116) Creatine Kinase 162 U/L (26-192) Creatine Kinase MB (Mass) 0.6 ng/mL (0.0-3.6) Creatine Kinase MB Relative Index 0.4 % (0-4) Troponin I Quantitative < 0.017 ng/mL (0.000-0.055) Total Protein 8.1 g/dL (6.4-8.2) Albumin 3.6 g/dL (3.4-5.0) Albumin/Globulin Ratio 0.8 (1.0-1.7) Glucose (Fingerstick) 231 mg/dL (70-99) Test 10/13/18 11:00 10/13/18 16:56 10/13/18 20:26 10/14/18 07:22 Glucose (Fingerstick) 249 mg/dL (70-99) 249 mg/dL (70-99) 217 mg/dL (70-99) 172 mg/dL (70-99) Test 10/14/18 08:30 Urine Opiates Screen Pos (NEG) Urine Methadone Screen Neg (NEG) Urine Barbiturates Neg (NEG) Urine Phencyclidine Screen Neg (NEG) Urine Amphetamine/Methamphetamine Neg (NEG) Urine Benzodiazepines Screen Neg (NEG) Urine Cocaine Screen Pos (NEG) Urine Cannabinoids Screen Neg (NEG) Urine Ethyl Alcohol Neg (NEG) Laboratory Tests Test 10/13/18 11:00 10/13/18 16:56 10/13/18 20:26 10/14/18 07:22 Glucose (Fingerstick) 249 mg/dL (70-99) 249 mg/dL (70-99) 217 mg/dL (70-99) 172 mg/dL (70-99) Test 10/14/18 08:30 Urine Opiates Screen Pos (NEG) Urine Methadone Screen Neg (NEG) Urine Barbiturates Neg (NEG) Urine Phencyclidine Screen Neg (NEG) Urine Amphetamine/Methamphetamine Neg (NEG) Urine Benzodiazepines Screen Neg (NEG) Urine Cocaine Screen Pos (NEG) Urine Cannabinoids Screen Neg (NEG) Urine Ethyl Alcohol Neg (NEG) Medications Current Medications Fentanyl Citrate (Fentanyl 2ml Vial) 50 mcg 1X ONCE IV ; Start 10/12/18 at 22: 00; Stop 10/13/18 at 00:37; Status DC Lidocaine (Lidoderm) 2 patch DAILY TD Last administered on 10/14/18at 08:45; Start 10/12/18 at 22:00 Potassium Chloride (Klor-Con) 20 meq STK-MED ONCE PO ; Start 10/12/18 at 23:09; Stop 10/13/18 at 00:52; Status DC Dexamethasone Sodium Phosphate (Decadron) 20 mg STK-MED ONCE .ROUTE ; Start at 23:09; Stop 10/13/18 at 00:52; Status DC Lorazepam (Ativan) 2 mg STK-MED ONCE .ROUTE ; Start 10/12/18 at 23:10; Stop at 00:52; Status DC Magnesium Sulfate 50 ml @ As Directed STK-MED ONCE IV ; Start 10/13/18 at 00:03 ; Stop 10/13/18 at 00:52; Status DC Magnesium Oxide (Magnesium Oxide) 400 mg STK-MED ONCE .ROUTE ; Start 10/13/18 at 00:03; Stop 10/13/18 at 00:52; Status DC Acetaminophen/ Hydrocodone Bitart (Lortab 5/325) 1 tab PRN Q6HRS PRN PO MODERATE PAIN Last administered on 10/13/18at 09:01; Start 10/13/18 at 01:45 Potassium Chloride (Klor-Con) 40 meq 1X ONCE PO ; Start 10/12/18 at 23:30; Stop 10/13/18 at 02:33; Status DC Lorazepam (Ativan) 1 mg 1X ONCE IV ; Start 10/12/18 at 23:30; Stop 10/13/18 at 02:33; Status DC Dexamethasone Sodium Phosphate (Decadron) 10 mg 1X ONCE IV ; Start 10/12/18 at 23:30; Stop 10/13/18 at 02:33; Status DC Miscellaneous (Lidoderm Patch Removal) 1 ea QHS MC ; Start 10/13/18 at 21:00 Amitriptyline HCl (Elavil) 10 mg QHS PO Last administered on 10/13/18at 20:45; Start 10/13/18 at 21:00 Amlodipine Besylate (Norvasc) 10 mg DAILY PO Last administered on 10/14/18 08: 44; Start 10/14/18 at 09:00 Budesonide (Pulmicort) 0.5 mg RTBID NEB Last administered on 10/14/18 06:02; Start 10/13/18 at 20:00 Albuterol/ Ipratropium (Duoneb) 3 ml RTQID NEB Last administered on 10/14/18at 06:02; Start 10/13/18 at 16:00 Metoprolol Tartrate (Lopressor) 50 mg BID PO Last administered on 10/14/18 08: 44; Start 10/13/18 at 21:00 Oxycodone/ Acetaminophen (Percocet 7.5/ 325) 1 tab PRN Q4HRS PRN PO PAIN Last administered on 10/14/18 08:44; Start 10/13/18 at 14:45 Magnesium Oxide (Magnesium Oxide) 400 mg DAILY PO Last administered on at 08:45; Start 10/14/18 at 09:00 Naproxen (Naprosyn) 250 mg PRN BID PRN PO PAIN; Start 10/13/18 at 14:45 Pantoprazole Sodium (Protonix) 40 mg DAILYAC PO Last administered on 10/14/18 08:45; Start 10/14/18 at 07:30 Potassium Chloride (Klor-Con) 40 meq DAILYWBKFT PO Last administered on 08:44; Start 10/14/18 at 08:00 Tizanidine HCl (Zanaflex) 4 mg PRN Q8HRS PRN PO MUSCLE SPASMS Last administered on 10/13/18at 15:20; Start 10/13/18 at 15:00 Nicotine (Nicoderm Cq 14mg) 1 patch PRN DAILY PRN TD SMOKING CESSATION; Start 10/14/18 at 09:00 Enoxaparin Sodium (Lovenox 40mg Syringe) 40 mg Q24H SQ Last administered on at 15:22; Start 10/13/18 at 15:00 Amlodipine Besylate (Norvasc) 5 mg 1X ONCE PO Last administered on 10/13/18at 16:30; Start 10/13/18 at 16:15; Stop 10/13/18 at 16:16; Status DC Active Scripts Active Magnesium Oxide 400 Mg Tablet 1 Tab PO BID 7 Days Potassium Chloride 20 Meq Tablet.er 40 Meq PO DAILY 7 Days Tizanidine Hcl 4 Mg Tablet 4 Mg PO PRN Q8HRS PRN MDD 1 Duoneb 0.5-3(2.5) Mg/3 Ml (Albuterol/Ipratropium) 3 Ml Ampul.neb 3 Ml NEB RTQID MDD 1 Budesonide 0.5 Mg/2 Ml Ampul.neb 0.5 Mg NEB RTBID MDD 1 Percocet 7.5-325 Mg Tablet (Oxycodone/Acetaminophen) 1 Each Tablet 1 Tab PO PRN Q4HRS PRN MDD 1 [Nicotine 14MG] 1 PATCH Patch 1 Patch TD PRN DAILY PRN Reported Metoprolol Tartrate 50 Mg Tablet 1 Tab PO BID Amitriptyline Hcl 10 Mg Tablet 1 Tab PO QHS Naprosyn (Naproxen) 500 Mg Tablet 250 Mg PO BID PRN Omeprazole 40 Mg Capsule. 1 Cap PO DAILY Amlodipine Besylate 10 Mg Tablet 10 Mg PO DAILY Vitals/I & O Vital Sign - Last 24 Hours 10/13/18 10/13/18 10/13/18 10/13/18 11:14 15:00 15:21 15:49 Temp 97.7 98.1 97.7 98.1 Pulse 94 92 Resp 18 20 B/P (MAP) 144/71 (95) 168/89 (115) Pulse Ox 94 93 94 99 O2 Delivery Room Air Room Air Room Air Room Air 10/13/18 10/13/18 10/13/18 10/13/18 16:21 16:30 18:30 19:12 Pulse 92 81 B/P (MAP) 168/89 114/69 (84) Pulse Ox 99 99 O2 Delivery Room Air 10/13/18 10/13/18 10/13/18 10/13/18 19:27 20:00 20:44 20:45 Temp Pulse Resp 18 B/P (MAP) () 114/69 Pulse Ox 96 O2 Delivery Room Air Room Air Room Air 10/13/18 10/13/18 10/14/18 10/14/18 21:44 23:08 03:22 06:02 Temp 98.1 97.9 98.1 97.9 Pulse 84 57 Resp 16 16 B/P (MAP) 140/65 (90) 122/74 (90) Pulse Ox 95 90 O2 Delivery Room Air Room Air Room Air Room Air 10/14/18 10/14/18 10/14/18 07:00 08:44 08:44 Temp 98.3 98.3 Pulse 68 68 68 Resp 18 B/P (MAP) 150/82 (104) 150/82 150/82 Pulse Ox 95 O2 Delivery Room Air Intake and Output 10/13/18 10/13/18 10/14/18 14:59 22:59 06:59 Intake Total 300 ml 200 ml 980 ml Balance 300 ml 200 ml 980 ml JULIO CESAR HARRISON MD Oct 14, 2018 10:22
[2018-10-14 11:00] VITALS: BP 151/75
--- NOTE | 2018-10-14 11:17 | PDOC3 ---
Discharge Summary Date of Admission: Oct 12, 2018 Date of Discharge: Oct 14, 2018 Follow-Up: 1-2 days Admitting Diagnosis comment: DISCHARGE DX Assessment/Plan impression hypokalemia Hypomagnesemia, severe, REPLACED Chronic pain Hypertension COPD Smoker alcohol abuse hx diabetes UNCONTROLLED Moderate atherosclerotic disease of the abdominal aorta. Low-attenuation of liver. Colonic diverticulosis. Small fat-containing umbilical hernia. Degenerative changes spine. This includes multiple disc protrusions with central canal stenosis. GERD CT 2016, wall thickening of the esophagus with a hiatal hernia. If there are symptoms within the region causes such as esophagitis not excluded. PAST COCAINE USE 2017 and current plan D/C TODAY SEE PCP TOMORROW offered treatment center, refused AMA iv mg tele bp control accuchecks tele dvt prophylaxis UDS PO 33 min pt exam, D/C PLANNING chart review, > 50% of time spent with exam, chart review, pt care coordination Vitals Vitals Vital Signs Date Time Temp Pulse Resp B/P (MAP) Pulse Ox O2 Delivery O2 Flow Rate FiO2 10/14/18 08:44 68 150/82 10/14/18 07:00 98.3 18 95 Room Air 98.3 Physical Exam General: Alert, Oriented X3, Cooperative, No acute distress, mild distress Lungs: Wheezing, Other Abdomen: Normal bowel sounds, Soft, No tenderness, No hepatosplenomegaly Extremities: No clubbing, No cyanosis Skin: No rashes, No breakdown, No significant lesion Brief Hospital Course Ms. Rain is a 62 old [sex] who presented with [MUSCLE CRAMPS, HYPOMAGNESEMIA ] CONDITION AT DISCHARGE: Improved Discharge Medications Current Medications Fentanyl Citrate (Fentanyl 2ml Vial) 50 mcg 1X ONCE IV ; Start 10/12/18 at 22: 00; Stop 10/13/18 at 00:37; Status DC Lidocaine (Lidoderm) 2 patch DAILY TD Last administered on 10/14/18at 08:45; Start 10/12/18 at 22:00 Potassium Chloride (Klor-Con) 20 meq STK-MED ONCE PO ; Start 10/12/18 at 23:09; Stop 10/13/18 at 00:52; Status DC Dexamethasone Sodium Phosphate (Decadron) 20 mg STK-MED ONCE .ROUTE ; Start at 23:09; Stop 10/13/18 at 00:52; Status DC Lorazepam (Ativan) 2 mg STK-MED ONCE .ROUTE ; Start 10/12/18 at 23:10; Stop at 00:52; Status DC Magnesium Sulfate 50 ml @ As Directed STK-MED ONCE IV ; Start 10/13/18 at 00:03 ; Stop 10/13/18 at 00:52; Status DC Magnesium Oxide (Magnesium Oxide) 400 mg STK-MED ONCE .ROUTE ; Start 10/13/18 at 00:03; Stop 10/13/18 at 00:52; Status DC Acetaminophen/ Hydrocodone Bitart (Lortab 5/325) 1 tab PRN Q6HRS PRN PO MODERATE PAIN Last administered on 10/13/18at 09:01; Start 10/13/18 at 01:45 Potassium Chloride (Klor-Con) 40 meq 1X ONCE PO ; Start 10/12/18 at 23:30; Stop 10/13/18 at 02:33; Status DC Lorazepam (Ativan) 1 mg 1X ONCE IV ; Start 10/12/18 at 23:30; Stop 10/13/18 at 02:33; Status DC Dexamethasone Sodium Phosphate (Decadron) 10 mg 1X ONCE IV ; Start 10/12/18 at 23:30; Stop 10/13/18 at 02:33; Status DC Miscellaneous (Lidoderm Patch Removal) 1 ea QHS MC ; Start 10/13/18 at 21:00 Amitriptyline HCl (Elavil) 10 mg QHS PO Last administered on 10/13/18at 20:45; Start 10/13/18 at 21:00 Amlodipine Besylate (Norvasc) 10 mg DAILY PO Last administered on 10/14/18at 08: 44; Start 10/14/18 at 09:00 Budesonide (Pulmicort) 0.5 mg RTBID NEB Last administered on 10/14/18at 06:02; Start 10/13/18 at 20:00 Albuterol/ Ipratropium (Duoneb) 3 ml RTQID NEB Last administered on 10/14/18at 06:02; Start 10/13/18 at 16:00 Metoprolol Tartrate (Lopressor) 50 mg BID PO Last administered on 10/14/18at 08: 44; Start 10/13/18 at 21:00 Oxycodone/ Acetaminophen (Percocet 7.5/ 325) 1 tab PRN Q4HRS PRN PO PAIN Last administered on 10/14/18at 08:44; Start 10/13/18 at 14:45 Magnesium Oxide (Magnesium Oxide) 400 mg DAILY PO Last administered on at 08:45; Start 10/14/18 at 09:00 Naproxen (Naprosyn) 250 mg PRN BID PRN PO PAIN; Start 10/13/18 at 14:45 Pantoprazole Sodium (Protonix) 40 mg DAILYAC PO Last administered on 10/14/18at 08:45; Start 10/14/18 at 07:30 Potassium Chloride (Klor-Con) 40 meq DAILYWBKFT PO Last administered on at 08:44; Start 10/14/18 at 08:00 Tizanidine HCl (Zanaflex) 4 mg PRN Q8HRS PRN PO MUSCLE SPASMS Last administered on 10/13/18at 15:20; Start 10/13/18 at 15:00 Nicotine (Nicoderm Cq 14mg) 1 patch PRN DAILY PRN TD SMOKING CESSATION; Start 10/14/18 at 09:00 Enoxaparin Sodium (Lovenox 40mg Syringe) 40 mg Q24H SQ Last administered on at 15:22; Start 10/13/18 at 15:00 Amlodipine Besylate (Norvasc) 5 mg 1X ONCE PO Last administered on 10/13/18at 16:30; Start 10/13/18 at 16:15; Stop 10/13/18 at 16:16; Status DC Active Scripts Active Magnesium Oxide 400 Mg Tablet 1 Tab PO BID 7 Days Potassium Chloride 20 Meq Tablet.er 40 Meq PO DAILY 7 Days Tizanidine Hcl 4 Mg Tablet 4 Mg PO PRN Q8HRS PRN MDD 1 Duoneb 0.5-3(2.5) Mg/3 Ml (Albuterol/Ipratropium) 3 Ml Ampul.neb 3 Ml NEB RTQID MDD 1 Budesonide 0.5 Mg/2 Ml Ampul.neb 0.5 Mg NEB RTBID MDD 1 Percocet 7.5-325 Mg Tablet (Oxycodone/Acetaminophen) 1 Each Tablet 1 Tab PO PRN Q4HRS PRN MDD 1 [Nicotine 14MG] 1 PATCH Patch 1 Patch TD PRN DAILY PRN Reported Metoprolol Tartrate 50 Mg Tablet 1 Tab PO BID Amitriptyline Hcl 10 Mg Tablet 1 Tab PO QHS Naprosyn (Naproxen) 500 Mg Tablet 250 Mg PO BID PRN Omeprazole 40 Mg Capsule.dr 1 Cap PO DAILY Amlodipine Besylate 10 Mg Tablet 10 Mg PO DAILY Vital Signs Vital Signs Date Time Temp Pulse Resp B/P (MAP) Pulse Ox O2 Delivery O2 Flow Rate FiO2 10/14/18 08:44 68 150/82 10/14/18 07:00 98.3 18 95 Room Air 98.3 Labs Laboratory Tests Test 10/12/18 20:40 10/12/18 21:00 10/13/18 03:15 10/13/18 07:02 Urine Collection Type Unknown Urine Color Yellow Urine Clarity Clear Urine pH 7.0 Urine Specific [place] 1.015 Urine Protein Negative mg/dL (NEG-TRACE) Urine Glucose (UA) Negative mg/dL (NEG) Urine Ketones (Stick) Negative mg/dL (NEG) Urine Blood Negative (NEG) Urine Nitrite Negative (NEG) Urine Bilirubin Negative (NEG) Urine Urobilinogen Dipstick 1.0 mg/dL (0.2 mg/dL) Urine Leukocyte Esterase Negative (NEG) Urine RBC 0 /HPF (0-2) Urine WBC 1-4 /HPF (0-4) Urine Squamous Epithelial Cells Mod /LPF Urine Bacteria Few /HPF (0-FEW) Urine Mucus Slight /LPF White Blood Count 9.0 x10^3/uL (4.0-11.0) 8.7 x10^3/uL (4.0-11.0) Red Blood Count 5.17 x10^6/uL (3.50-5.40) 5.20 x10^6/uL (3.50-5.40) Hemoglobin 11.9 g/dL (12.0-15.5) 11.6 g/dL (12.0-15.5) Hematocrit 37.0 % (36.0-47.0) 37.4 % (36.0-47.0) Mean Corpuscular Volume 72 fL (79-100) 72 fL (79-100) Mean Corpuscular Hemoglobin 23 pg (25-35) 22 pg (25-35) Mean Corpuscular Hemoglobin Concent 32 g/dL (31-37) 31 g/dL (31-37) Red Cell Distribution Width 16.7 % (11.5-14.5) 17.0 % (11.5-14.5) Platelet Count 299 x10^3/uL (140-400) 320 x10^3/uL (140-400) Neutrophils (%) (Auto) 64 % (31-73) 84 % (31-73) Lymphocytes (%) (Auto) 27 % (24-48) 13 % (24-48) Monocytes (%) (Auto) 7 % (0-9) 3 % (0-9) Eosinophils (%) (Auto) 2 % (0-3) 0 % (0-3) Basophils (%) (Auto) 0 % (0-3) 0 % (0-3) Neutrophils # (Auto) 5.7 x10^3uL (1.8-7.7) 7.3 x10^3uL (1.8-7.7) Lymphocytes # (Auto) 2.4 x10^3/uL (1.0-4.8) 1.1 x10^3/uL (1.0-4.8) Monocytes # (Auto) 0.6 x10^3/uL (0.0-1.1) 0.2 x10^3/uL (0.0-1.1) Eosinophils # (Auto) 0.2 x10^3/uL (0.0-0.7) 0.0 x10^3/uL (0.0-0.7) Basophils # (Auto) 0.0 x10^3/uL (0.0-0.2) 0.0 x10^3/uL (0.0-0.2) Platelet Estimate Adequate (ADEQUATE) Hypochromasia Slight Microcytosis Mod Sodium Level 142 mmol/L (136-145) 140 mmol/L (136-145) Potassium Level 3.2 mmol/L (3.5-5.1) 3.6 mmol/L (3.5-5.1) Chloride Level 100 mmol/L (98-107) 100 mmol/L (98-107) Carbon Dioxide Level 29 mmol/L (21-32) 24 mmol/L (21-32) Anion Gap 13 (6-14) 16 (6-14) Blood Urea Nitrogen 11 mg/dL (7-20) 9 mg/dL (7-20) Creatinine 1.0 mg/dL (0.6-1.0) 1.3 mg/dL (0.6-1.0) Estimated GFR (Cockcroft-Gault) 68.4 50.6 BUN/Creatinine Ratio 11 (6-20) Glucose Level 139 mg/dL (70-99) 271 mg/dL (70-99) Calcium Level 8.6 mg/dL (8.5-10.1) 9.0 mg/dL (8.5-10.1) Magnesium Level 1.0 mg/dL (1.8-2.4) 1.8 mg/dL (1.8-2.4) Total Bilirubin 0.6 mg/dL (0.2-1.0) Aspartate Amino Transf (AST/SGOT) 17 U/L (15-37) Alanine Aminotransferase (ALT/SGPT) 19 U/L (14-59) Alkaline Phosphatase 140 U/L (46-116) Creatine Kinase 162 U/L (26-192) Creatine Kinase MB (Mass) 0.6 ng/mL (0.0-3.6) Creatine Kinase MB Relative Index 0.4 % (0-4) Troponin I Quantitative < 0.017 ng/mL (0.000-0.055) Total Protein 8.1 g/dL (6.4-8.2) Albumin 3.6 g/dL (3.4-5.0) Albumin/Globulin Ratio 0.8 (1.0-1.7) Glucose (Fingerstick) 231 mg/dL (70-99) Test 10/13/18 11:00 10/13/18 16:56 10/13/18 20:26 10/14/18 07:22 Glucose (Fingerstick) 249 mg/dL (70-99) 249 mg/dL (70-99) 217 mg/dL (70-99) 172 mg/dL (70-99) Test 10/14/18 08:30 Urine Opiates Screen Pos (NEG) Urine Methadone Screen Neg (NEG) Urine Barbiturates Neg (NEG) Urine Phencyclidine Screen Neg (NEG) Urine Amphetamine/Methamphetamine Neg (NEG) Urine Benzodiazepines Screen Neg (NEG) Urine Cocaine Screen Pos (NEG) Urine Cannabinoids Screen Neg (NEG) Urine Ethyl Alcohol Neg (NEG) Laboratory Tests Test 10/13/18 16:56 10/13/18 20:26 10/14/18 07:22 10/14/18 08:30 Glucose (Fingerstick) 249 mg/dL (70-99) 217 mg/dL (70-99) 172 mg/dL (70-99) Urine Opiates Screen Pos (NEG) Urine Methadone Screen Neg (NEG) Urine Barbiturates Neg (NEG) Urine Phencyclidine Screen Neg (NEG) Urine Amphetamine/Methamphetamine Neg (NEG) Urine Benzodiazepines Screen Neg (NEG) Urine Cocaine Screen Pos (NEG) Urine Cannabinoids Screen Neg (NEG) Urine Ethyl Alcohol Neg (NEG) Allergies Allergies Coded Allergies Type Severity Reaction Last Updated Verified lisinopril Allergy Intermediate 07/07/15 Yes codeine Adverse Reaction Intermediate Itching 07/13/15 Yes Disposition/Orders: D/C to Home Patient Instructions D/C PLANNING 33 MIN SEE PCP TOMORROW, NO NARCOTICS JULIO CESAR HARRISON MD Oct 14, 2018 11:17
[2018-10-14] MEDS ORDERED: LIDO700A39 TD (11:18)
--- NOTE | 2018-10-14 11:20 | DISCH ---
DISCHARGE INSTRUCTIONS Condition on Discharge Condition on Discharge: Guarded Activity After Discharge Activity Instructions for Disc: Activity as tolerated Bathing Instructions: Shower-keep dressing dry, No Tub Bath until see Lifting Instructions after Dis: No pulling or pushing, Do not lift >10 pounds Exercise Instruction after Dis: Walk 10 min, 3 x per day Driving Instructions after Dis: Do not drive, Do not drive today Weight Bearing Status after Di: As tolerated Diet after Discharge Diet after Discharge: Cardiac, Diabetic No Calorie Level Diet Texture: Regular Liquid Texture: Thin Liquid Swallowing Supervision: None needed Wound Incision Care Wound/Incision Care: No wound care needed Checks after Discharge Checks after discharge: Check blood sugar, ac/hs Contacting the DR. after DC Call your doctor for: If your condition worsens Follow-Up Follow up with: PCP TOMORROW Treatment/Equipment after DC Adaptive Equipment Issued: JULIO CESAR Aguilar MD Oct 14, 2018 11:20
--- NOTE | 2018-10-14 13:17 | NUR ---
Discharge Note: CANDY CROU[facility] [address] [place] [address] Discharge instructions and discharge home medications reviewed with Patient and a copy given. All questions have been answered and understanding verbalized. The following instructions and handouts were given: F/U with PCP within one week. Discontinued lines and drains: Peripheral IV intact. Patient discharged to Home or Self Care with Family Member via Wheelchair.
== END 2018-10-14 13:17 | disposition home or self-care (01) | DRG 641 ==
LOC: ER 19:39 → 6 SOUTH 23:55
PROVIDERS: ADMIT Internal Medicine; ATTEND Internal Medicine
DX: E87.6 Hypokalemia (principal); E83.42 Hypomagnesemia; G89.29 Other chronic pain; I10 Essential (primary) hypertension; J44.9 Chronic obstructive pulmonary disease, unspecified; K57.30 Diverticulosis of large intestine without perforation or abscess without bleeding; E78.00 Pure hypercholesterolemia, unspecified; E11.9 Type 2 diabetes mellitus without complications; Z90.710 Acquired absence of both cervix and uterus; Z90.49 Acquired absence of other specified parts of digestive tract; F17.210 Nicotine dependence, cigarettes, uncomplicated; Z88.5 Allergy status to narcotic agent; Z88.8 Allergy status to other drugs, medicaments and biological substances; F10.10 Alcohol abuse, uncomplicated; I70.0 Atherosclerosis of aorta; K42.9 Umbilical hernia without obstruction or gangrene; M48.00 Spinal stenosis, site unspecified; K21.9 Gastro-esophageal reflux disease without esophagitis; K22.9 Disease of esophagus, unspecified; K44.9 Diaphragmatic hernia without obstruction or gangrene
CPT/HCPCS: 36415; 71046; 80048; 80053; 80307; 81001; 82553; 82962; 83735; 84484; 85025; 93005; 94640; J1650; J7620; J7626; 99285-25